=== PATIENT | female | born 1985 | race Caucasian/White ===

== ENCOUNTER → 2019-01-31 | Outpatient (CLI) | payer BC, SELFPAY | PROVIDERS: Family Provider Nurse Practitioner; Visit Provider Otolaryngology | DX: Z01.89 Encounter for other specified special examinations (principal) | CPT/HCPCS: 36415; 85025; 85651; 86038 ==

== ENCOUNTER 2019-04-13 14:03 | Outpatient (CLI) | payer BC, SELFPAY ==
--- NOTE | 2019-04-13 14:10 | CT_ITS ---
WS: [id number] CT ABDOMEN AND PELVIS NONCONTRAST HISTORY: LESION ON LIVER, lymphadenopathy TECHNIQUE: Imaging performed through the abdomen and pelvis. Coronal and sagittal reformats are submi tted. All CT scans at [facility] use at least one of these dose optimization techniques: automated exposure control; mA and/or kV adjustment per patient size (includes targeted exams where d ose is matched to clinical indication); or iterative reconstruction. DLP: 944.97 mGycm COMPARISON: 11/18/2017 Lower thorax: Lung bases are clear. No hiatal hernia. Liver: Diffuse decreased attenuation. No bile duct dilatation. Decreased attenuation lesion in the in ferior RIGHT lobe of the liver measures 2.2 x 1.9 cm. Slight bulging of the contour of the liver. Thi s was present in 11/18/2017 without increase in size. Gallbladder: Unremarkable. Pancreas: Poorly visualized. Spleen: Normal. Adrenal glands: Normal. Right kidney: Normal size with no stones, masses or atrophy. Left kidney: There may be a small cyst in the upper pole. Cannot further characterize without contras t. No obstruction. 2 mm calcification mid kidney. Abdominal aorta and IVC are unremarkable. No free fluid, intraperitoneal air or significant lymphadenopathy. GI tract: Appendix. No GI tract obstruction. Abdominal wall: Intact. Pelvis: Small amount of free fluid in the cul-de-sac may be physiologic. Uterus is top normal size. O therwise ovaries and uterus cannot be evaluated on this unenhanced study. Osseous structures: Unremarkable. CT/CT abdomen pelvis wo con [id number] IMPRESSION: 1. No acute abdominal or pelvic abnormalities are identified. Evaluation of vi sceral organs and soft tissues is limited without IV contrast. 2. No renal obstruction. 3. Low-attenuation lesion in the inferior RIGHT lobe the liver similar to 11/18. Today's examination does not provide additional information without IV c ontrast. Please correlate with prior imaging studies to be sure this mass is be en adequately evaluated and is benign. Three-phase hepatic CT may be necessary for complete evaluation. 4. Normal appendix. 5. Mild uterine enlargement.
[2019-04-13] MEDS: iohexol 300 mg/mL 50 mL Btl PO (15:22)
== END 2019-04-13 14:04 | disposition home or self-care (01) ==
LOC: RADWPI 14:08
PROVIDERS: Family Provider Nurse Practitioner; PCP Nurse Practitioner Family; Referring Provider Nurse Practitioner Family; Visit Provider Nurse Practitioner Family
DX: K76.89 Other specified diseases of liver (principal); R59.1 Generalized enlarged lymph nodes; N85.2 Hypertrophy of uterus
CPT/HCPCS: 74176

== ENCOUNTER 2019-05-01 09:25 | Outpatient (CLI) | payer BC, SELFPAY ==
--- NOTE | 2019-05-01 09:52 | CT_ITS ---
WS: [id number] CT ABDOMEN NON-CONTRAST PLUS CONTRAST TECHNIQUE: Noncontrast CT of the abdomen and contrast-enhanced CT of the abdomen with coronal and sag ittal reformatted images. CLINICAL INFORMATION: LESION OF LIVER COMPARISON: 1 16,018 DLP: 1523.[address] scans at [facility] use at least one of these dose optimization techniques: automat ed exposure control; mA and/or kV adjustment per patient size (includes targeted exams where dose is matched to clinical indication); or iterative reconstruction. FINDINGS: Normal portal vein and splenic vein. Again seen is the peripheral enhancing lesion in the right hepat ic lobe with imaging characteristics consistent with cavernous hemangioma. This lesion measures appro ximately 2.1 x 2.2 CM. A few additional tiny hepatic cysts or cavernous hemangiomas measuring 3 to 4 mm.. No bile duct dilatation. Normal gallbladder. Normal spleen. Pancreas appears normal. Lung bases are well aerated. Normal calib er abdominal aorta. Adrenal glands are normal. Left renal cyst measuring 14 mm. Incidental fat-contai sindi umbilical hernia. Normal lumbar spine. CT/CT abdomen wo/w con [id number] IMPRESSION: 1. 2.1 x 2.2 cm peripheral enhancing lesion in the inferior right hepatic lobe consistent with cavernous hemangioma. 2. Left renal cyst measuring 1.4 CM. 3. No other significant changes from the recent CT.
[2019-05-01] MEDS: iohexol 300 mg/mL 100 mL Btl IV (10:32)
== END 2019-05-01 09:26 | disposition home or self-care (01) ==
LOC: RADWPI 09:27
PROVIDERS: Family Provider Nurse Practitioner; PCP Nurse Practitioner Family; Visit Provider Nurse Practitioner Family
DX: K76.89 Other specified diseases of liver (principal); N28.1 Cyst of kidney, acquired
CPT/HCPCS: 74170; Q9967

== ENCOUNTER → 2019-05-25 09:18 | Outpatient (BNVA) | payer BC, SELFPAY | PROVIDERS: Family Provider Nurse Practitioner; PCP Nurse Practitioner Family; Referring Provider Nurse Practitioner Family; Visit Provider Internal Medicine Rheumatology | DX: M35.00 Sjogren syndrome, unspecified (principal); R76.8 Other specified abnormal immunological findings in serum; M19.90 Unspecified osteoarthritis, unspecified site; Z79.899 Other long term (current) drug therapy; Z11.59 Encounter for screening for other viral diseases; N85.2 Hypertrophy of uterus; D18.03 Hemangioma of intra-abdominal structures; Z11.1 Encounter for screening for respiratory tuberculosis; Z72.89 Other problems related to lifestyle; M79.7 Fibromyalgia | CPT/HCPCS: 36415; 82787; 85651; 86480; 99205 ==

== ENCOUNTER → 2019-05-25 11:30 | Outpatient (BNVA) | payer BC, SELFPAY | PROVIDERS: Family Provider Nurse Practitioner; PCP Nurse Practitioner Family; Referring Provider Nurse Practitioner Family; Visit Provider Internal Medicine Rheumatology | DX: R76.8 Other specified abnormal immunological findings in serum (principal); M19.90 Unspecified osteoarthritis, unspecified site; Z79.899 Other long term (current) drug therapy; Z11.59 Encounter for screening for other viral diseases; M35.00 Sjogren syndrome, unspecified; N85.2 Hypertrophy of uterus; D18.03 Hemangioma of intra-abdominal structures | CPT/HCPCS: 80076; 81001; 82306; 82565; 85025; 86140; 86431; 86704; 86803; 87340 ==

== ENCOUNTER 2019-07-14 22:23 | Emergency (ER) | payer BC, SELFPAY ==
[2019-07-14 23:04] VITALS: BP 144/92; PULSE 86; RESP 16; TEMP 36.8; O2SAT 100; BMI 22.6
[2019-07-14 23:38] LABS: Basophils % 0.2 %; Eosinophils % 0.1 %; Hematocrit 36.3 % (37.0-47.0); Hemoglobin 11.3 g/dL (11.5-15.3); Lymphocytes # 1.1 10^3/uL (0.8-4.8); Lymphocytes % 10.2 %; Mean Corpuscular HGB Conc 31.1 g/dL (30.0-36.0); Mean Corpuscular Volume 86.6 fL (81-99); Mean Platelet Volume 9.9 fL (7.4-10.4); Monocytes # 0.4 10^3/uL (0.2-0.9); Monocytes % 3.3 %; Neutrophils # 9.1 10^3/uL (1.8-7.7); Neutrophils % 85.8 %; Nucleated Red Blood Cells % 0 %; Platelet Count 301 10^3/cmm (130-400); Red Blood Count 4.19 10^6/uL (4.1-5.3); Red Cell Distribution Width 14.2 % (12.1-15.1); White Blood Count 10.6 10^3/uL (4.0-10.0)
--- NOTE | 2019-07-14 23:41 | W.ED.ABDPA2 ---
HPI - Abdominal Pain General: Chief Complaint: Abdominal Pain Stated Complaint: abd pain Time Seen by Provider: 07/14/19 23:17 History of Present Illness: HPI narrative: Donna is a nice 34-year-old female who comes in complaining of feeling bloated and having periumbilical abdominal pain. She states that she felt bloated throughout the day and then getting out of the shower she had sudden onset severe lower abdominal pain and periumbilical abdominal pain. Patient states this feels similar to when she is had ruptured ovarian cysts in the past but the pain is never lasted this long after it happened. She denies any fevers, chills, nausea, vomiting, diarrhea, constipation, dysuria, hematuria or vaginal discharge or bleeding. Associated Symptoms: Denies chills, coffee ground emesis, constipation, GI cramping, diarrhea, dysuria, fever(s), hematochezia, hematuria, hematemesis, melena, nausea, syncope and vomiting Related Data: Date of Last Menstrual Period: 06/20/19 Review of Systems General: Reports: other (negative unless marked) Const: Denies: fever, chills, body aches, fatigue, malaise or diaphoresis Eyes: Denies: change in vision or blurry vision ENMT: Denies: throat pain, painful swallowing, hoarseness, ear pain, ear discharge, Change in hearing or nasal discharge Card: Denies: chest pain, palpitations, irregular heart rhythm, syncope, pre-syncope, shortness of breath on exertion or shortness of breath when lying down Resp: Denies: shortness of breath, productive cough, non-productive cough, wheezing, coughing up blood or chest congestion GI: Reports: abdominal pain; Denies: nausea, vomiting, vomiting blood, coffee grounds in vomit, diarrhea, constipation, cramping, blood in stool or black tarry stool : Denies: flank pain, painful urination, urinary frequency, urinary urgency, decreased urine ouput, urinary incontinence or blood in urine Musc: Denies: neck pain, back pain, extremity pain, extremity swelling, joint pain, joint swelling, joint warmth or joint stiffness Skin/Breast: Denies: rash, skin tenderness or yellow skin Neuro: Denies: headache, numbness in extremities, weakness in extremities, changes in sensation, lack of coordination, difficulty walking, dizziness, vertigo or confusion Endo: Denies: excessive thirst, tired all the time, cold intolerance, excessive sweating, flushing or hot flashes Sekou/Lymph: Denies: easy bruising, easy bleeding, petechiae or enlarged lymph nodes All/Imm: Denies: hives, throat swelling, tongue swelling, facial swelling or acute wheezing PFSH ED PFSH: Medical History Enlarged uterus High risk medication use Immunization counseling Inflammatory arthritis Liver hemangioma Positive NATALIE (antinuclear antibody) Seropositive rheumatoid arthritis Sjogrens syndrome Surgical History History of tubal ligation Family History Other Cancer Diabetes Hypertension Stroke Denies family history of Rheumatoid arthritis Lupus Social History Smoking and tobacco status: never smoked Alcohol intake: never Female Reproductive History: Date of last menstrual period: 06/20/19 Physical Exam Const: COMMON NORMALS: no apparent distress, oriented x3, no limitations, healthy appearing and well nourished EXAM LIMITATIONS: no altered mental status GENERAL APPEARANCE: cooperative, well kempt and well developed ORIENTATION/CONSCIOUSNESS: Yes awake HENMT: COMMON NORMALS: normocephalic, head/scalp atraumatic, hearing grossly normal bilaterally, external ears normal, EAC's normal, external nose normal and moist oral mucous membranes HEAD & SCALP: normal to inspection, normocephalic and atraumatic FACE & SINUS: normal facial exam and face symmetric NOSE: external nose normal and nares normal EXTERNAL EAR: Yes external ears normal EXTERNAL AUDITORY CANAL: EAC's normal MOUTH: oral and palatal mucosa normal and tongue normal Eye: COMMON NORMALS: PERRL, EOMs intact bilaterally, conjunctivae normal and no scleral icterus GENERAL EYE: normal appearance of both eyes and normal light reflex CONJUNCTIVA: Yes conjunctivae normal SCLERA: sclerae normal CORNEA: Yes corneas normal PUPIL: Yes PERRL DIRECT OPHTHALMOSCOPY: Yes normal light reflex Neck/C-Spine: COMMON NORMALS: full ROM, no lymphadenopathy, supple, no meningeal signs and no JVD GENERAL: Yes normal visual inspection and Yes trachea midline CERVICAL SPINE: Yes cervical ROM normal Chest: COMMONS NORMALS: inspection of chest normal and palpation of chest normal Resp: COMMON NORMALS: normal respiratory effort, no retractions, no use of accessory muscles and clear to auscultation bilaterally EFFORT & INSPECTION: Yes able to speak in complete sentences AUSCULTATION: clear to auscultation bilaterally Cardio: COMMON NORMALS: no JVD, regular rate, regular rhythm, S1 normal heart sound, S2 normal heart sound, no gallops, no clicks, no murmurs and no rub JUGULAR VENOUS DISTENTION: no JVD RATE: regular rate RHYTHM: regular rhythm HEART SOUNDS: S1 normal and S2 normal GI: COMMON NORMALS: soft to palpation, no hepatosplenomegaly and no masses PALPATION: Yes soft, No firm, Yes tender Details: LLQ and RLQ, No guarding, No rigid and Yes no hepatosplenomegaly : COMMON NORMALS: Yes no CVA tenderness BLADDER/KIDNEY EXAM: Yes no CVA tenderness Back/Pelvis: COMMON NORMALS: no CVA tenderness, thoracic and lumbar spine normal to inspection, no thoracic nor lumbar tenderness and thoraco-lumbar ROM normal Extremity: COMMON NORMALS: normal to inspection, full ROM, normal capillary refill, no joint enlargement, no clubbing, cyanosis or edema and no calf tenderness Neuro: COMMON NORMALS: oriented x3, CN's II-XII intact bilaterally, moves all extremities, no focal motor deficits and no sensory deficits noted MENINGEAL SIGNS: Yes no meningeal signs Psych: COMMON NORMALS: mental status grossly normal, thought process normal, cooperative, affect normal, speech normal and activity/motor behavior normal APPEARANCE: Yes well kempt SPEECH: Yes normal speech THOUGHT PROCESS: normal thought process Skin: COMMON NORMALS: no rashes or lesions noted, skin turgor normal, no jaundice, no petechiae and no mottling GENERAL SKIN EXAM: no rashes or lesions noted and turgor normal Course Vital Signs: Vital signs: Vital Signs Temperature 98.3 F 07/14/19 23:04 Pulse Rate 70 07/15/19 01:10 Respiratory Rate 16 07/15/19 01:10 Blood Pressure 150/99 07/15/19 01:10 Pulse Oximetry 98 07/15/19 01:10 MDM - Abdominal Pain MDM Narrative: Medical decision making narrative: Donna is a nice 34-year-old female who comes in complaining of abrupt onset abdominal pain. She felt like this was a ruptured ovarian cyst but ultrasound could not confirm this. There was no evidence of torsion, tubo-ovarian abscess or ovarian cyst by ultrasound. As she was continuing to have pain and had a slightly elevated white count I decided to perform a CT of the abdomen pelvis. This is well shows no acute findings. The patient's abdominal exam does not show any sign of peritonitis. I did discuss with the patient at length the possibility of a still developing or occult infection or process causing her pain that could be masked by her immune therapy. She is currently taking 7.5 of prednisone daily. She understands this and she agrees to return in 12 to 24 hours for recheck of her symptoms. She does agree to return sooner if her symptoms worsen or change in any way. We discussed at length in layman's terms those reasons and she understands this and agrees to do so. As she is on a significant amount of prednisone daily I will give her an IV dose of hydrocortisone here and discussed with her stress dose steroid taking. She will take double the amount of prednisone for the next 3 days. At this time I do not want to place her on empiric antibiotics as I do not have a clear source for infection. Differential Diagnosis: Differential diagnosis abdominal pain: Likely abdominal pain, acute appendicitis, calculus of kidney, constipation, diverticulitis, endometriosis, gastroenteritis, pancreatitis and small bowel obstruction Lab Data: Attestation: I reviewed the patient's lab results. Labs: Lab Results 07/14/19 07/14/19 07/14/19 Range/Units 23:30 23:30 23:30 WBC 10.6 H (4.0-10.0) 10^3/ uL RBC 4.19 (4.1-5.3) 10^6/u L Hgb 11.3 L (11.5-15.3) g/dL Hct 36.3 L (37.0-47.0) % MCV 86.6 (81-99) fL MCH 27.0 L (28.0-34.0) pg MCHC 31.1 (30.0-36.0) g/dL RDW 14.2 (12.1-15.1) % Plt Count 301 (130-400) 10^3/c mm MPV 9.9 (7.4-10.4) fL Neut % (Auto) 85.8 % Lymph % (Auto) 10.2 % [place] % (Auto) 3.3 % Eos % (Auto) 0.1 % Baso % (Auto) 0.2 % Neut # (Auto) 9.1 H (1.8-7.7) 10^3/u L Lymph # (Auto) 1.1 (0.8-4.8) 10^3/u L [place] # (Auto) 0.4 (0.2-0.9) 10^3/u L Eos # (Auto) 0.0 (0.0-0.8) 10^3/u L Baso # (Auto) 0.0 (0.0-0.1) 10^3/u L Nucleated RBC % (a uto) 0 % Nucleated RBCs # 0.0 /100WBC Sodium 138 (136-145) mmol/L Potassium 4.1 (3.5-5.1) mmol/L Chloride 100 (98-107) mmol/L Carbon Dioxide 26 (22-29) mmol/L Anion Gap 16.1 (5-19) BUN 8 (6-20) mg/dL Creatinine 0.7 (0.5-0.9) mg/dL GFR Calculation 95.2 (90-130) mL/min Glucose 141 H (65-115) mg/dL Calculated Osmolal ity 284 L (285-295) mOsm/k g Calcium 10.3 (8.5-10.5) mg/dL Total Bilirubin 0.2 (0.15-1.2) mg/dL AST 15 (0-32) U/L ALT 13 (0-33) U/L Alkaline Phosphata se 78 (35-105) IU/L Total Protein 7.7 (6.6-8.7) g/dL Albumin 4.7 (3.5-5.2) g/dL Globulin 3.0 (1.3-4.6) g/dL Lipase 27 (13-60) U/L HCG, Qual (Negative) Urine Color Yellow (Yellow) Urine Appearance Cloudy (CLEAR) Urine pH 7 (5-7) Ur Specific Gravit y 1.010 (1.005-1.030) Urine Protein Neg (Negative) Urine Glucose (UA) Norm (Normal) Urine Ketones Negative (Negative) Urine Blood Trace H (Negative) Urine Nitrate Negative (Negative) Urine Bilirubin Neg (NEGATIVE) Urine Urobilinogen Norm (Negative) mg/dL Ur Leukocyte Rosalia ase Negative (Negative) Urine RBC 0-4 H (0-2) /hpf Urine WBC 0-4 H (0-5) /hpf Ur Squamous Epith Cells 0-4 H (0-5) Urine Bacteria Trace (NONE) Urine Mucus Trace Urine Sperm 1+ 04/01/22 Range/Units 23:30 WBC (4.0-10.0) 10^3/ uL RBC (4.1-5.3) 10^6/u L Hgb (11.5-15.3) g/dL Hct (37.0-47.0) % MCV (81-99) fL MCH (28.0-34.0) pg MCHC (30.0-36.0) g/dL RDW (12.1-15.1) % Plt Count (130-400) 10^3/c mm MPV (7.4-10.4) fL Neut % (Auto) % Lymph % (Auto) % [place] % (Auto) % Eos % (Auto) % Baso % (Auto) % Neut # (Auto) (1.8-7.7) 10^3/u L Lymph # (Auto) (0.8-4.8) 10^3/u L [place] # (Auto) (0.2-0.9) 10^3/u L Eos # (Auto) (0.0-0.8) 10^3/u L Baso # (Auto) (0.0-0.1) 10^3/u L Nucleated RBC % (a uto) % Nucleated RBCs # /100WBC Sodium (136-145) mmol/L Potassium (3.5-5.1) mmol/L Chloride (98-107) mmol/L Carbon Dioxide (22-29) mmol/L Anion Gap (5-19) BUN (6-20) mg/dL Creatinine (0.5-0.9) mg/dL GFR Calculation (90-130) mL/min Glucose (65-115) mg/dL Calculated Osmolal ity (285-295) mOsm/k g Calcium (8.5-10.5) mg/dL Total Bilirubin (0.15-1.2) mg/dL AST (0-32) U/L ALT (0-33) U/L Alkaline Phosphata se (35-105) IU/L Total Protein (6.6-8.7) g/dL Albumin (3.5-5.2) g/dL Globulin (1.3-4.6) g/dL Lipase (13-60) U/L HCG, Qual Negative (Negative) Urine Color (Yellow) Urine Appearance (CLEAR) Urine pH (5-7) Ur Specific Gravit y (1.005-1.030) Urine Protein (Negative) Urine Glucose (UA) (Normal) Urine Ketones (Negative) Urine Blood (Negative) Urine Nitrate (Negative) Urine Bilirubin (NEGATIVE) Urine Urobilinogen (Negative) mg/dL Ur Leukocyte Rosalia ase (Negative) Urine RBC (0-2) /hpf Urine WBC (0-5) /hpf Ur Squamous Epith Cells (0-5) Urine Bacteria (NONE) Urine Mucus Urine Sperm Imaging Data ^: CT Abd/Pel: Radiologist's impression: [place] [address] CT Scan Report Signed Patient: Donna Mendez Unit #: [id number] : 1985 Age/Sex: 34 / F ADM Date: 07/14/19 Loc: ER Room/Bed: Attending Dr: Ordering Provider/Ordering MD: Geno Brooks DO Date of Service: 07/15/19 Procedure(s): CT abdomen pelvis w con* [id number] Accession Number(s): [id number] Report Number: [id number] PROCEDURE INFORMATION: Exam: CT Abdomen And Pelvis With Contrast Exam date and time: 07/15/2019 1:21 AM Age: 34 years old Clinical indication: Abdominal pain; Epigastric; Prior surgery; Surgery date: 6+ months; Surgery type: Btl TECHNIQUE: Imaging protocol: Computed tomography of the abdomen and pelvis with intravenous contrast. Total DLP: 481.12 mGy-cm Radiation optimization: All CT scans at this facility use at least one of these dose optimization techniques: automated exposure control; mA and/or kV adjustment per patient size (includes targeted exams where dose is matched to clinical indication); or iterative reconstruction. Contrast material: OMNI 300; Contrast volume: 95 ml; Contrast route: 20G; COMPARISON: CT abdomen pelvis wo con [id number] 2019-04-13 15:16 FINDINGS: Liver: Small, less than 5 mm, liver hypodensity. Highly likely to be benign and does not require follow-up imaging or biopsy per ACR. Probable hepatic hemangioma along the inferior posterior right hepatic lobe measuring 2.1 cm. Gallbladder and bile ducts: Normal. No calcified stones. No ductal dilation. Pancreas: Normal. No ductal dilation. Spleen: Normal. No splenomegaly. Adrenals: Normal. No mass. Kidneys and ureters: 1.3 cm left renal cyst. Stomach and bowel: Unremarkable. No obstruction. No mucosal thickening. Appendix: No evidence of appendicitis. Intraperitoneal space: Clip in the right pelvis. Vasculature: Numerous phleboliths in the pelvis. Lymph nodes: Unremarkable. No enlarged lymph nodes. Bladder: Unremarkable as visualized. Reproductive: Unremarkable as visualized. Bones/joints: Unremarkable. No acute fracture. Soft tissues: Small fat protruding umbilical hernia. CT/CT abdomen pelvis w con* [id number] IMPRESSION: No acute findings. Radiation Dose CTDIVOL = (mGy): DLP = 481.12 (mGy-cm) Dictated By: Caleb Clark MD Signed By: Caleb Clark MD Signed Date/Time: 07/15/19209 DD/ 7 US: My impression: Ultrasound pelvis, technologist interpretation -no acute findings. No ovarian torsion's. No ovarian cyst. No free fluid. Discharge Plan Discharge Patient Disposition: Home, Self-Care Clinical Impression: Abdominal pain Qualifiers: Abdominal location: generalized Qualified Code(s): R10.84 - Generalized abdominal pain Condition: Stable Prescriptions: New Zofran 4 mg tablet 4 mg PO Q6H PRN (Reason: nausea and vomiting) Qty: 20 RF: 0 No Action acyclovir 400 mg tablet 400 mg PO BID RF: 0 pantoprazole 40 mg tablet,delayed release (DR/EC) 40 mg PO DAILY Qty: 90 RF: 3 prednisone 2.5 mg tablet 7.5 mg PO DAILY Qty: 90 RF: 2 sulfasalazine 500 mg tablet 1 gm PO BID RF: 0 Discharge Orders: Discharge Order (Routine); Ordered 07/15/19 Ordered By: Geno Brooks Referrals: Matilde Conde, C[employer] BLOWER OPERATOR-C [Family Provider] - 1-3 days Rosalind Graves FNP [Primary Care Provider] - Discharge Diet: Advance as tolerated and Clear Liquid Discharge Activity: Increase activity as tolerated Patient Instructions: Abdominal Pain (ED) Activity Restrictions/Additional Instructions: Please return to the ER immediately for any of the signs or symptoms listed on your discharge instruction sheets, worsening/changing of your symptoms, you are not getting better as quickly as expected, or for ANY other cause or concerns. Double your dose of prednisone for the next 3 days. Then resume your normal dosing. Return to the ER in 12 to 24 hours for recheck as a serious even life-threatening cause for your abdominal pain has not been excluded. Return sooner for increased pain, new onset of fever, vomiting, diarrhea, or for any other cause for concern. Stand Alone Forms: Work/School Release Coding Level of Care Code ED Cotton Agent for Kaelyn Fwbhaskar Exam Comprehensive
[2019-07-14 23:51] LABS: Bilirubin Urine Neg (NEGATIVE); Blood Urine Trace (Negative); Glucose Urine UA Norm (Normal); Ketones Urine Negative (Negative); Leukocyte Esterase Urine Negative (Negative); Nitrate Urine Negative (Negative); Protein Urine Neg (Negative); Urine Appearance Cloudy (CLEAR); Urine Color Yellow (Yellow); Urobilinogen Urine Norm (Negative); pH Urine 7 (5-7)
[2019-07-14 23:52] LABS: Bacteria Urine TRACE; Mucus Urine TRACE; RBC Urine 0-4 /hpf (0-2); Sperm Urine 1+; Squamous Epithelial Cell Urine 0-4 (0-5); WBC Urine 0-4 /hpf (0-5)
[2019-07-14 23:53] LABS: HCG, Serum Qual Negative (Negative)
[2019-07-14 23:55] LABS: Alanine Aminotransferase 13 U/L (0-33); Albumin Level 4.7 g/dL (3.5-5.2); Alkaline Phosphatase 78 IU/L (35-105); Anion Gap 16.1 (5-19); Aspartate Amino Transferase 15 U/L (0-32); Blood Urea Nitrogen 8 mg/dL (6-20); Calcium 10.3 mg/dL (8.5-10.5); Carbon Dioxide 26 mmol/L (22-29); Chloride 100 mmol/L (98-107); Glomerular Filtration Rate 95.2 mL/min (90-130); Glucose 141 mg/dL (65-115); Lipase 27 U/L (13-60); Osmolality Calculated 284 mOsm/kg (285-295); Potassium 4.1 mmol/L (3.5-5.1); Sodium 138 mmol/L (136-145); Total Bilirubin 0.2 mg/dL (0.15-1.2); Total Protein 7.7 g/dL (6.6-8.7)
[2019-07-15 00:13] VITALS: RESP 14; O2SAT 99
[2019-07-15] MEDS: ondansetron 2 mg/ML SDV 2 mL 4 MG IVP (00:13)
[2019-07-15] MEDS: morphine 4 mg/mL SDV 1 mL IVP ×2 (00:13→02:53)
[2019-07-15] MEDS: sodium chloride 0.9% 1,000 ML 999 ML IV (00:14)
--- NOTE | 2019-07-15 00:21 | PC.NURSE ---
Patient states that she has been feeling nauseated for the last two days and tonight at 1999 she started having abdominal pain. Patient states she vomited twice today. Patient states that she has been having pain with sex and bleeding, the last time two days ago. Patient states she has a tubal ligation.
[2019-07-15 00:22] VITALS: BP 150/100; PULSE 75; RESP 16; O2SAT 98
--- NOTE | 2019-07-15 01:02 | CTR_ITS ---
PROCEDURE INFORMATION: Exam: CT Abdomen And Pelvis With Contrast Exam date and time: 07/15/2019 1:21 AM Age: 34 years old Clinical indication: Abdominal pain; Epigastric; Prior surgery; Surgery date: 6+ months; Surgery type: Btl TECHNIQUE: Imaging protocol: Computed tomography of the abdomen and pelvis with intravenous contrast. Total DLP: 481.12 mGy-cm Radiation optimization: All CT scans at this facility use at least one of these dose optimization techniques: automated exposure control; mA and/or kV adjustment per patient size (includes targeted exams where dose is matched to clinical indication); or iterative reconstruction. Contrast material: OMNI 300; Contrast volume: 95 ml; Contrast route: 20G; COMPARISON: CT abdomen pelvis wo con [id number] 2019-04-13 15:16 FINDINGS: Liver: Small, less than 5 mm, liver hypodensity. Highly likely to be benign and does not require follow-up imaging or biopsy per ACR. Probable hepatic hemangioma along the inferior posterior right hepatic lobe measuring 2.1 cm. Gallbladder and bile ducts: Normal. No calcified stones. No ductal dilation. Pancreas: Normal. No ductal dilation. Spleen: Normal. No splenomegaly. Adrenals: Normal. No mass. Kidneys and ureters: 1.3 cm left renal cyst. Stomach and bowel: Unremarkable. No obstruction. No mucosal thickening. Appendix: No evidence of appendicitis. Intraperitoneal space: Clip in the right pelvis. Vasculature: Numerous phleboliths in the pelvis. Lymph nodes: Unremarkable. No enlarged lymph nodes. Bladder: Unremarkable as visualized. Reproductive: Unremarkable as visualized. Bones/joints: Unremarkable. No acute fracture. Soft tissues: Small fat protruding umbilical hernia. CT/CT abdomen pelvis w con* [id number] IMPRESSION: No acute findings. Radiation Dose CTDIVOL = (mGy): DLP = 481.12 (mGy-cm)
[2019-07-15 01:10] VITALS: BP 150/99; PULSE 70; RESP 16; O2SAT 98
--- NOTE | 2019-07-15 01:11 | PC.NURSE ---
during pt rounding, pt states she is still having pain 6/10, with no nausea
[2019-07-15] MEDS: iohexol 300 mg/mL 100 mL Btl IV (01:54)
[2019-07-15 02:53] VITALS: RESP 14; O2SAT 96
[2019-07-15] MEDS: hydrocortisone 100 mg/2 mL SDV IVP (02:53)
[2019-07-15 03:10] VITALS: BP 133/85; PULSE 70; RESP 16; O2SAT 99
--- NOTE | 2019-07-15 23:41 | USR_ITS ---
PROCEDURE INFORMATION: Exam: US Pelvis Complete, Transabdominal Exam date and time: 07/15/2019 12:26 AM Age: 34 years old Clinical indication: Abdominal pain; Lower abdomen TECHNIQUE: Imaging protocol: Real-time transabdominal pelvic ultrasound with image documentation. Complete exam. COMPARISON: US pelvic with transvaginal 2017-08-24 09:19 FINDINGS: Uterus/cervix: 8.9 x 4.7 x 5 cm uterus without masses. Unremarkable endometrium. Right adnexa: 2.9 x 2.1 x 2.7 cm right ovary with normal follicular architecture and blood flow. Left adnexa: 3.1 x 2 x 1.9 cm left ovary with normal follicular architecture and blood flow. Free fluid: None. Bladder: Normal. US/US pelvic complete* [id number] IMPRESSION: Normal.
== END 2019-07-15 03:11 | disposition home or self-care (01) ==
PROVIDERS: Emergency Provider Emergency Medicine; Family Provider Nurse Practitioner; PCP Nurse Practitioner Family
DX: R10.84 Generalized abdominal pain (principal); R76.8 Other specified abnormal immunological findings in serum; M35.00 Sjogren syndrome, unspecified; M05.9 Rheumatoid arthritis with rheumatoid factor, unspecified
CPT/HCPCS: 12345; 74177; 76856; 80053; 81001; 83690; 84703; 85025; 96361; 96374; 96375; 96376; 99283; 99284; A9270; J1720; J2270; J2405; J7030; Q9967

== ENCOUNTER 2019-07-16 19:27 | Emergency (ER) | payer BC, SELFPAY ==
[2019-07-16 19:31] VITALS: BP 152/100; PULSE 87; RESP 18; TEMP 36.7; O2SAT 100; BMI 22.4
--- NOTE | 2019-07-16 19:46 | CTR_ITS ---
PROCEDURE INFORMATION: Exam: CT Abdomen And Pelvis With Contrast Exam date and time: 07/16/2019 9:33 PM Age: 34 years old Clinical indication: Abdominal pain; Localized; Left lower quadrant (llq); Additional info: Pain luq TECHNIQUE: Imaging protocol: Computed tomography of the abdomen and pelvis with intravenous contrast. Sagittal and coronal reformatted images were created and reviewed. Total DLP: 494.21 mGy-cm Radiation optimization: All CT scans at this facility use at least one of these dose optimization techniques: automated exposure control; mA and/or kV adjustment per patient size (includes targeted exams where dose is matched to clinical indication); or iterative reconstruction. Contrast material: OMNIPAQUE 300; Contrast volume: 95 ml; Contrast route: IV; COMPARISON: 1. CT abdomen pelvis w con* [id number] 07/15/2019 1:[address] abdomen pelvis w con* [id number] 11/18/2017 8:26:[address] abdomen pelvis wo con [id number] 04/13/2019 3:16:01 PM FINDINGS: Lungs: Visualized lungs are clear. Pleural space: No pleural effusion. Heart: Visualized portions of the heart are unremarkable. Liver: Hypodense lesion in the liver with imaging characteristics consistent with a hemangioma. This measures 3.0 x 2.5 cm, stable dating back to 11/18/2017 (series 2, image 40). Two hypodense foci in the liver that cannot be further characterized on the current examination. The larger measures 6.4 mm (series 2, images 15 and 28). Findings are stable dating back to 11/18/2017. Gallbladder and bile ducts: The gallbladder is contracted. This may be due to a postprandial state. No pericholecystic fluid. No biliary ductal dilatation. Pancreas: The pancreas is unremarkable. No pancreatic ductal dilatation. Spleen: The spleen is unremarkable. Adrenals: The right and left adrenal glands are unremarkable. Kidneys and ureters: The right kidney is unremarkable. Mildly complex cyst with thin internal septation in the left kidney. This measures 1.6 x 1.2 cm (series 2, image 23), findings are stable compared with on 11/18/2017. Findings suggest a Bosniak type 2 cyst. The right and left ureters are unremarkable. Stomach and bowel: Ingested contents in the stomach. Fluid within the small bowel without evidence of mesenteric lymphadenopathy or bowel wall thickening. Appendix: The appendix is visualized and is unremarkable. No findings to suggest acute appendicitis. Intraperitoneal space: Small amount of free fluid in the pelvis. No free intraperitoneal air. No loculated fluid collections to suggest an abscess. Vasculature: No evidence for aortic aneurysm or aortic dissection. Hepatic veins, portal veins, splenic vein, and SMV are patent. Lymph nodes: No lymphadenopathy. Bladder: The bladder is unremarkable. Reproductive: The uterus is unremarkable. Right ovarian cyst with an enhancing wall, possibly representing a degenerating ovarian cyst. This measures 1.9 x 0.9 cm (series 2, image 63). The left ovary is unremarkable. The patient has had a previous bilateral tubal ligation. There is a ligation clip in the right adnexa, the left ligation clip has migrated superiorly and is located in the left upper quadrant (series 2, image 26). Findings are stable. Bones/joints: No acute fracture. Soft tissues: The extra-abdominal soft tissues are unremarkable. CT/CT abdomen pelvis w con* [id number] IMPRESSION: 1. Fluid within the small bowel without evidence of mesenteric lymphadenopathy or bowel wall thickening. This may reflect viral gastroenteritis in the appropriate clinical situation. 2. The patient has had a previous bilateral tubal ligation. There is a ligation clip in the right adnexa, the left ligation clip has migrated superiorly and is located in the left upper quadrant. Findings are stable dating back to 04/13/2019. 3. Probable degenerating cyst in the right ovary. 4. Two hypodense foci in the liver that cannot be further characterized on the current examination. Findings are stable dating back to 11/18/2017. 5. Stable hepatic hemangioma in the liver dating back to 11/18/2017. 6. Stable Bosniak type 2 left renal cyst compared with 11/18/2017. 7. Small amount of free fluid in the pelvis. 8. Incidental/nonacute findings are listed in the report. Radiation Dose CTDIVOL = (mGy): DLP = 494.21 (mGy-cm)
--- NOTE | 2019-07-16 19:48 | ED_ITS ---
HPI - Abdominal Pain General: Chief Complaint: Abdominal Pain Stated Complaint: told to come her by doctor Time Seen by Provider: 07/16/19 19:36 History of Present Illness: HPI narrative: Patient complains of abdominal pain is continued since her last visit here it hurts up in the left upper quadrant she is peeing and pooping just fine. Denies any fever chills cough or other related problems. Her muscles and joints are feeling better now since she been on prednisone. Blood pressure is up slightly today. MD elicited complaint: abdominal pain Pertinent past history: constipation Onset (ago): day(s) Pain Consistency: constant Location: Periumbilical and LUQ Severity: moderate Quality: dull Exacerbating factors: nothing Relieving factors: nothing Associated Symptoms: Reports bloating; Denies chills and fever(s) Related Data: Date of Last Menstrual Period: 06/20/19 Review of Systems Const: Denies: fever, chills or body aches Eyes: Denies: change in vision or blurry vision ENMT: Denies: throat pain or nasal congestion Card: Denies: chest pain or shortness of breath on exertion Resp: Denies: shortness of breath, productive cough or non-productive cough GI: Reports: abdominal pain and bloating Musc: Denies: extremity pain Skin/Breast: Denies: rash Neuro: Denies: headache Psych: Denies: anxiety or depression [place]/Lymph: Denies: easy bruising PFSH ED PFSH: Social History Smoking and tobacco status: never smoked Alcohol intake: never Female Reproductive History: Date of last menstrual period: 06/20/19 Physical Exam Const: COMMON NORMALS: no apparent distress, average body habitus and oriented x3 HENMT: COMMON NORMALS: normocephalic HEAD & SCALP: normal to inspection and normocephalic FACE & SINUS: normal facial exam Eye: COMMON NORMALS: conjunctivae normal GENERAL EYE: normal appearance of both eyes CONJUNCTIVA: Yes conjunctivae normal Neck/C-Spine: COMMON NORMALS: no JVD Chest: COMMONS NORMALS: inspection of chest normal Resp: COMMON NORMALS: normal respiratory effort and clear to auscultation bilaterally AUSCULTATION: clear to auscultation bilaterally Cardio: COMMON NORMALS: no JVD, regular rate and regular rhythm RATE: regular rate RHYTHM: regular rhythm GI: COMMON NORMALS: normal to inspection, nondistended, normoactive bowel sounds AUSCULTATION: Yes normoactive bowel sounds PALPATION: Yes tender Details: LUQ and other (Periumbilical) Extremity: COMMON NORMALS: normal to inspection and full ROM Neuro: COMMON NORMALS: oriented x3 Course Vital Signs: Vital signs: Vital Signs Temperature 98.1 F 07/16/19 19:31 Pulse Rate 87 07/16/19 19:31 Respiratory Rate 18 07/16/19 19:31 Blood Pressure 152/100 07/16/19 19:31 Pulse Oximetry 100 07/16/19 19:31 Discharge Plan Discharge Prescriptions: No Action acyclovir 400 mg tablet 400 mg PO BID RF: 0 pantoprazole 40 mg tablet,delayed release (DR/EC) 40 mg PO DAILY Qty: 90 RF: 3 prednisone 2.5 mg tablet 7.5 mg PO DAILY Qty: 90 RF: 2 sulfasalazine 500 mg tablet 1 gm PO BID RF: 0 ondansetron HCl [Zofran] 4 mg tablet 4 mg PO Q6H PRN (Reason: nausea and vomiting) Qty: 20 RF: 0 Vitamin D3 1,000 units 1,000 units PO DAILY RF: 0 Coding Level of Care Code ED 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
[2019-07-16 19:58] LABS: Basophils % 0.2 %; Eosinophils % 0.1 %; Hematocrit 35.4 % (37.0-47.0); Lymphocytes # 1.4 10^3/uL (0.8-4.8); Lymphocytes % 13.1 %; Mean Corpuscular HGB Conc 31.1 g/dL (30.0-36.0); Mean Corpuscular Volume 86.8 fL (81-99); Monocytes # 0.4 10^3/uL (0.2-0.9); Monocytes % 4.2 %; Neutrophils # 8.4 10^3/uL (1.8-7.7); Neutrophils % 82.1 %; Nucleated Red Blood Cells % 0 %; Platelet Count 299 10^3/cmm (130-400); Red Blood Count 4.08 10^6/uL (4.1-5.3); Red Cell Distribution Width 14.2 % (12.1-15.1); White Blood Count 10.3 10^3/uL (4.0-10.0)
[2019-07-16 20:00] LABS: Add Urine Microscopic? NO
[2019-07-16 20:09] LABS: Bilirubin Urine Neg (NEGATIVE); Blood Urine Neg (Negative); Glucose Urine UA Norm (Normal); HCG Qualitative Urine. Negative (Negative); Ketones Urine Negative (Negative); Leukocyte Esterase Urine Negative (Negative); Nitrate Urine Negative (Negative); Protein Urine Neg (Negative); Urine Appearance Clear (CLEAR); Urine Color Yellow (Yellow); Urobilinogen Urine Norm (Negative); pH Urine 6.5 (5-7)
[2019-07-16 20:10] LABS: Alanine Aminotransferase 6 U/L (0-33); Albumin Level 4.8 g/dL (3.5-5.2); Alkaline Phosphatase 77 IU/L (35-105); Anion Gap 14.5 (5-19); Aspartate Amino Transferase 12 U/L (0-32); Blood Urea Nitrogen 9 mg/dL (6-20); C Reactive Protein 0.3 mg/L (0.0-4.9); Calcium 10.3 mg/dL (8.5-10.5); Carbon Dioxide 27 mmol/L (22-29); Chloride 100 mmol/L (98-107); Globulin 2.8 g/dL (1.3-4.6); Glomerular Filtration Rate 95.2 mL/min (90-130); Glucose 123 mg/dL (65-115); Osmolality Calculated 283 mOsm/kg (285-295); Potassium 3.5 mmol/L (3.5-5.1); Sodium 138 mmol/L (136-145); Total Bilirubin 0.2 mg/dL (0.15-1.2); Total Protein 7.6 g/dL (6.6-8.7)
[2019-07-16] MEDS: iohexol 300 mg/mL 100 mL Btl IV (21:36)
[2019-07-16 22:47] VITALS: BP 130/83; PULSE 64; RESP 18; TEMP 36.4; O2SAT 97
== END 2019-07-16 22:49 | disposition home or self-care (01) ==
PROVIDERS: Emergency Provider Nurse Practitioner Family; Family Provider Nurse Practitioner; PCP Nurse Practitioner Family
DX: R10.12 Left upper quadrant pain (principal); D18.03 Hemangioma of intra-abdominal structures; N85.2 Hypertrophy of uterus; M35.00 Sjogren syndrome, unspecified; R76.8 Other specified abnormal immunological findings in serum; Z79.899 Other long term (current) drug therapy
CPT/HCPCS: 12345; 74177; 80053; 81003; 81025; 85025; 86140; 96374; 99282; 99283; Q9967

== ENCOUNTER → 2020-01-15 11:25 | Outpatient (BNVA) | payer BC, SELFPAY | PROVIDERS: Family Provider Nurse Practitioner; PCP Nurse Practitioner Family; Visit Provider Nurse Practitioner Family | DX: Z11.59 Encounter for screening for other viral diseases (principal); Z20.828 Contact with and (suspected) exposure to other viral communicable diseases; J06.9 Acute upper respiratory infection, unspecified | CPT/HCPCS: 87635 ==

== ENCOUNTER 2021-04-18 07:39 | Outpatient (CLI) | payer SELFPAY ==
[2021-04-18 08:00] VITALS: BP 112/77; PULSE 72; RESP 18; TEMP 36.6; O2SAT 96; BMI 24.0
[2021-04-18 08:46] VITALS: BP 114/83; PULSE 68; RESP 18; TEMP 37.1; O2SAT 98
[2021-04-18 09:43] VITALS: BP 111/83; PULSE 82; RESP 16; TEMP 36.3; O2SAT 97
== END 2021-04-18 07:40 | disposition home or self-care (01) ==
LOC: OPS 07:41
PROVIDERS: PCP Nurse Practitioner Family; Visit Provider Family Medicine
DX: U07.1 COVID-19 (principal); M35.00 Sjogren syndrome, unspecified; J45.909 Unspecified asthma, uncomplicated
CPT/HCPCS: 96365

== ENCOUNTER 2021-06-14 21:27 | Emergency (ER) | payer SELFPAY ==
[2021-06-14 21:32] VITALS: BP 139/86; PULSE 99; RESP 18; TEMP 36.6; O2SAT 97; BMI 24.5
[2021-06-14 22:05] LABS: Basophils % 0.2 %; Eosinophils % 0.2 %; Hematocrit 36.9 % (37.0-47.0); Hemoglobin 11.8 g/dL (11.5-15.3); Lymphocytes # 1.1 10^3/uL (0.8-4.8); Lymphocytes % 11.6 %; Mean Corpuscular Hemoglobin 26.7 pg (28.0-34.0); Mean Corpuscular Volume 83.5 fl (81-99); Mean Platelet Volume 9.8 fL (7.4-10.4); Monocytes # 0.6 10^3/uL (0.2-0.9); Monocytes % 6.8 %; Neutrophils # 7.62 10^3/uL (1.8-7.7); Nucleated Red Blood Cells % 0 %; Platelet Count 292 10^3/cmm (130-400); Red Blood Count 4.42 10^6/uL (4.1-5.3); Red Cell Distribution Width 13.5 % (12.1-15.1); White Blood Count 9.4 10^3/uL (4.0-10.0)
[2021-06-14] MEDS: LORazepam 2 mg/mL INJ 1 mL 1 MG IVP (22:08)
[2021-06-14] MEDS: sodium chloride 0.9% 1,000 ML 999 ML IV (22:10)
[2021-06-14] MEDS: ondansetron 2 mg/ML SDV 2 mL 4 MG IVP (22:10)
[2021-06-14 22:29] LABS: Alanine Aminotransferase 10 U/L (0-33); Albumin Level 4.8 g/dL (3.5-5.2); Alkaline Phosphatase 95 IU/L (35-105); Anion Gap 14.4 (5-19); Aspartate Amino Transferase 11 U/L (0-32); Blood Urea Nitrogen 5 mg/dL (6-20); Calcium 9.1 mg/dL (8.5-10.5); Carbon Dioxide 26 mmol/L (22-29); Chloride 100 mmol/L (98-107); Glomerular Filtration Rate 112.5 mL/min (90-130); Glucose 140 mg/dL (65-115); Osmolality Calculated 284 mOsm/kg (285-295); Potassium 3.4 mmol/L (3.5-5.1); Sodium 137 mmol/L (136-145); Total Bilirubin 0.3 mg/dL (0.15-1.2); Total Protein 7.8 g/dL (6.6-8.7)
[2021-06-14 23:53] VITALS: PULSE 82; RESP 14; O2SAT 98
--- NOTE | 2021-06-15 00:20 | W.ED.GENADLT ---
HPI - General Adult General: Chief complaint: General Medical Stated complaint: reaction to medication Time Seen by Provider: 06/14/21 21:41 History of Present Illness: 36-year-old female who started Prozac around a week ago. She notes several hours after she took it, she began to get paresthesias in her arms and legs at times, she has been nauseated, and threw up once this evening which prompted her to come to the ER. She has been a bit jittery, and generally not felt well. She denies any fever, significant diarrhea, seizure, significant mental status change, or other problems. No sick contacts. Onset (ago): day(s) Radiation: non-radiation Severity: moderate Relieving factors: none Exacerbating factors: none Associated symptoms: Reports headache(s), nausea, vomiting and weakness (Generalized); Deny chest pain, confusion, cough, dyspnea, fevers/chills or short of breath Review of Systems Const: Denies: fever(s) or chills Eyes: Denies: change in vision ENMT: Denies: throat pain Card: Denies: chest pain Resp: Denies: dyspnea, productive cough or non-productive cough GI: Reports: nausea and vomiting Neuro: Reports: headache(s); Denies: confusion PFSH ED PFSH: Medical History Enlarged uterus High risk medication use Immunization counseling Inflammatory arthritis Liver hemangioma Positive NATALIE (antinuclear antibody) Seropositive rheumatoid arthritis Sjogrens syndrome Surgical History History of tubal ligation Family History Other Cancer Diabetes Hypertension Stroke Denies family history of Rheumatoid arthritis Lupus Social History Smoking and tobacco status: never smoked Alcohol intake: never Female Reproductive History: Date of last menstrual period: 06/20/19 Physical Exam Const: COMMON NORMALS: no acute distress GENERAL APPEARANCE: cooperative; not ill appearing and not frail appearing HENMT: COMMON NORMALS: normocephalic, atraumatic and Normal external nose present HEAD & SCALP: normocephalic and atraumatic FACE & SINUS: normal facial exam NOSE: Normal external nose present Eye: COMMON NORMALS: Equal, round and reactive pupils present and EOMs intact bilaterally PUPIL: Yes Equal, round and reactive pupils present Chest: COMMONS NORMALS: normal inspection of the chest Resp: COMMON NORMALS: No use of accessory muscles, clear to auscultation bilaterally and percussion normal AUSCULTATION: clear to auscultation bilaterally PERCUSSION: percussion normal Cardio: COMMON NORMALS: regular rate and regular rhythm RATE: regular rate RHYTHM: regular rhythm GI: COMMON NORMALS: Normal to inspection, nondistended, normoactive bowel sounds present, Soft to palpation and non-tender PALPATION: Yes Soft to palpation Extremity: COMMON NORMALS: no pedal edema Neuro: TJ COMA SCALE: document GCS findings [place] coma scale eye opening: Spontaneous [place] coma scale verbal response: Orientated [place] coma scale motor response: Obey commands [place] coma scale total score: 15 Skin: RASHES: no rashes Course Vital Signs: Vital signs: Vital Signs Temperature 98 F 06/14/21 21:32 Pulse Rate 82 06/14/21 23:53 Respiratory Rate 14 06/14/21 23:53 Blood Pressure 139/86 06/14/21 21:32 Pulse Oximetry 98 06/14/21 23:53 MDM - General Adult Medical Decision Making Labs are benign. No other reason for her symptoms besides the medication she started. She is given Ativan here, which made her pretty sleepy, but improved the paresthesias she was having also improved her nausea. She will be allowed discharge to discontinue her fluoxetine, and follow-up as an outpatient. She knows to return for any return of or continued symptoms. Lab Data : 06/14/21 22:00 06/14/21 22:00 Laboratory Results WBC 9.4 10^3/uL (4.0-10.0) 06/14/21 22:00 RBC 4.42 10^6/uL (4.1-5.3) 06/14/21 22:00 Hgb 11.8 g/dL (11.5-15.3) 06/14/21 22:00 Hct 36.9 % (37.0-47.0) L 06/14/21 22:00 MCV 83.5 fl (81-99) 06/14/21 22:00 MCH 26.7 pg (28.0-34.0) L 06/14/21 22:00 MCHC 32.0 g/dL (30.0-36.0) 06/14/21 22:00 RDW 13.5 % (12.1-15.1) 06/14/21 22:00 Plt Count 292 10^3/cmm (130-400) 06/14/21 22:00 MPV 9.8 fL (7.4-10.4) 06/14/21 22:00 Neut % (Auto) 81.0 % 06/14/21 22:00 Lymph % (Auto) 11.6 % 06/14/21 22:00 [place] % (Auto) 6.8 % 06/14/21:00 Eos % (Auto) 0.2 % 06/14/21:00 Baso % (Auto) 0.2 % 06/14/21 22:00 Neut # (Auto) 7.62 10^3/uL (1.8-7.7) 06/14/21 22:00 Lymph # (Auto) 1.1 10^3/uL (0.8-4.8) 06/14/21 22:00 [place] # (Auto) 0.6 10^3/uL (0.2-0.9) 06/14/21 22:00 Eos # (Auto) 0.0 10^3/uL (0.0-0.8) 06/14/21 22:00 Baso # (Auto) 0.0 10^3/uL (0.0-0.1) 06/14/21 22:00 Nucleated RBC % (auto) 0 % 06/14/21:00 Nucleated RBCs # 0.0 /100WBC 06/14/21 22:00 Sodium 137 mmol/L (136-145) 06/14/21 22:00 Potassium 3.4 mmol/L (3.5-5.1) L 06/14/21 22:00 Chloride 100 mmol/L (98-107) 06/14/21 22:00 Carbon Dioxide 26 mmol/L (22-29) 06/14/21 22:00 Anion Gap 14.4 (5-19) 06/14/21 22:00 BUN 5 mg/dL (6-20) L 06/14/21 22:00 Creatinine 0.6 mg/dL (0.5-0.9) 06/14/21 22:00 GFR Calculation 112.5 mL/min (90-130) 06/14/21 22:00 Glucose 140 mg/dL (65-115) H 06/14/21 22:00 Calculated Osmolality 284 mOsm/kg (285-295) L 06/14/21 22:00 Calcium 9.1 mg/dL (8.5-10.5) 06/14/21 22:00 Total Bilirubin 0.3 mg/dL (0.15-1.2) 06/14/21 22:00 AST 11 U/L (0-32) 06/14/21 22:00 ALT 10 U/L (0-33) 06/14/21 22:00 Alkaline Phosphatase 95 IU/L (35-105) 06/14/21 22:00 Total Protein 7.8 g/dL (6.6-8.7) 06/14/21 22:00 Albumin 4.8 g/dL (3.5-5.2) 06/14/21 22:00 Globulin 3.0 g/dL (1.3-4.6) 06/14/21 22:00 Discharge Plan Discharge Patient Disposition: Home Clinical Impression: Medication intolerance Condition: Stable Prescriptions: Continued ondansetron HCl [Zofran] 4 mg tablet 4 mg PO Q6H PRN (Reason: nausea and vomiting) Qty: 20 0RF No Action acyclovir 400 mg tablet 400 mg PO BID 0RF dexamethasone 6 mg tablet 6 mg PO DAILY Qty: 5 0RF amoxicillin-pot clavulanate [Augmentin] 875-125 mg tablet 1 tab PO BID Qty: 20 0RF prednisone 20 mg tablet 20 mg PO BID Qty: 6 0RF Vitamin D3 1,000 units 1,000 units PO DAILY 0RF Discharge Orders: Discharge ED (Routine); Ordered 06/14/21 Ordered By: Carlos Valenzuela Referrals: Columba Huber FNP-C [Primary Care Provider] - 4-7 days Activity Restrictions/Additional Instructions: Stop the fluoxetine. Take the nausea medication every 4 hours while awake scheduled for the next 48 hours, then as needed. Drink plenty of fluids. Return for any worsening symptoms. 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
== END 2021-06-15 00:08 | disposition home or self-care (01) ==
PROVIDERS: Emergency Provider Emergency Medicine; PCP Nurse Practitioner Family
DX: T88.7XXA Unspecified adverse effect of drug or medicament, initial encounter (principal); T43.225A Adverse effect of selective serotonin reuptake inhibitors, initial encounter
CPT/HCPCS: 80053; 85025; 96361; 96374; 96375; 99283; J2060; J2405; J7030

== ENCOUNTER 2021-07-27 19:29 | Emergency (ER) | payer SELFPAY ==
[2021-07-27 19:59] VITALS: BP 131/91; PULSE 87; RESP 16; TEMP 36.6; O2SAT 100; BMI 25.3
--- NOTE | 2021-07-27 20:13 | XRR_ITS ---
PROCEDURE INFORMATION: Exam: XR Chest Exam date and time: 07/27/2021 10:35 PM Age: 36 years old Clinical indication: Pain; On breathing; Additional info: Pleuritic cp TECHNIQUE: Imaging protocol: XR of the chest. Views: 1 view. COMPARISON: CT abdomen pelvis w con* [id number] 07/16/2019 9:39 PM FINDINGS: Lungs: The lung bases are suboptimally assessed due to technique however the upper lungs are clear of focal consolidation. Slight bilateral basilar haziness may be related to overlying breast tissue however developing pneumonia cannot be excluded. Follow-up including lateral view may be helpful. Pleural spaces: Unremarkable. No pleural effusion. No pneumothorax. Heart/Mediastinum: Cardiac silhouette appears normal in size. No obvious vascular congestion. Bones/joints: No acute osseous findings. Other findings: Single view was submitted. XR/XR chest 1V portable [id number] IMPRESSION: Mild bilateral basilar haziness. See discussion above..
--- NOTE | 2021-07-27 21:00 | ECG_ITS ---
[facility] Test Date: 2021-07-27 Pat Name: Donna Mendez Department: Room: Gender: Female Ekg Tech: : 1985 Requested By: Mauricio Llanes Order Number: [id number] Herrera MD: Jhonatan Lebron M.D. Measurements Intervals [place] Rate: 80 P: 50 [place]: 130 QRS: 76 QRSD: 80 T: 6 QT: 326 QTc: 378 Interpretive Statements SINUS RHYTHM NONSPECIFIC T-WAVE ABNORMALITY No previous ECG available for comparison Electronically Signed On 07-28-2021 22:14:51 CDT by Jhonatan Lebron M.D. [id number] f
[2021-07-27 23:50] LABS: Basophils % 0.5 %; Eosinophils # 0.2 10^3/uL (0.0-0.8); Hematocrit 37.7 % (37.0-47.0); Lymphocytes # 1.5 10^3/uL (0.8-4.8); Lymphocytes % 18.9 %; Mean Corpuscular HGB Conc 31.8 g/dL (30.0-36.0); Mean Corpuscular Hemoglobin 27.1 pg (28.0-34.0); Mean Corpuscular Volume 85.3 fl (81-99); Mean Platelet Volume 10.3 fL (7.4-10.4); Monocytes # 0.5 10^3/uL (0.2-0.9); Monocytes % 5.6 %; Neutrophils # 5.85 10^3/uL (1.8-7.7); Neutrophils % 72.8 %; Nucleated Red Blood Cells % 0 %; Platelet Count 325 10^3/cmm (130-400); Red Blood Count 4.42 10^6/uL (4.1-5.3); Red Cell Distribution Width 13.9 % (12.1-15.1)
[2021-07-28 00:13] LABS: Alanine Aminotransferase 11 U/L (0-33); Albumin Level 4.5 g/dL (3.5-5.2); Alkaline Phosphatase 87 IU/L (35-105); Anion Gap 12.9 (5-19); Aspartate Amino Transferase 13 U/L (0-32); Blood Urea Nitrogen 8 mg/dL (6-20); Calcium 9.2 mg/dL (8.5-10.5); Carbon Dioxide 26 mmol/L (22-29); Chloride 103 mmol/L (98-107); Globulin 2.8 g/dL (1.3-4.6); Glomerular Filtration Rate 112.5 mL/min (90-130); Glucose 93 mg/dL (65-115); Osmolality Calculated 284 mOsm/kg (285-295); Potassium 3.9 mmol/L (3.5-5.1); Sodium 138 mmol/L (136-145); Total Bilirubin 0.2 mg/dL (0.15-1.2); Total Protein 7.3 g/dL (6.6-8.7)
[2021-07-28 00:15] LABS: D Dimer 1.77 ug/mIFEU (0-0.59)
--- NOTE | 2021-07-28 00:17 | CTR_ITS ---
PROCEDURE INFORMATION: Exam: CTA Chest With Contrast Exam date and time: 07/28/2021 12:48 AM Age: 36 years old Clinical indication: Pain; Left-sided; Patient HX: C/O intermittent L sided cp x 3 days; Additional info: Chest pain TECHNIQUE: Imaging protocol: Computed tomographic angiography of the chest with contrast. 3D rendering (Not supervised by radiologist): MIP and/or 3D reconstructed images were created by the technologist. Radiation optimization: All CT scans at this facility use at least one of these dose optimization techniques: automated exposure control; mA and/or kV adjustment per patient size (includes targeted exams where dose is matched to clinical indication); or iterative reconstruction. Contrast material: OMNI 350; Contrast volume: 58 ml; Contrast route: INTRAVENOUS (IV); COMPARISON: CR (CHEST, ) 07/27/2021 10:35 PM RADIATION DOSE METRICS: Total DLP (mGy-cm): 376.81 FINDINGS: Pulmonary arteries: Normal. No pulmonary emboli. Aorta: Unremarkable. No aortic aneurysm. No aortic dissection. Lungs: Unremarkable. No consolidation. No masses. Pleural spaces: Unremarkable. No pneumothorax. No pleural effusion. Heart: Unremarkable. No cardiomegaly. No pericardial effusion. Lymph nodes: Unremarkable. No enlarged lymph nodes. Bones/joints: Unremarkable. No acute fracture. Soft tissues: Unremarkable. CT/CT angio chest PE protcl [id number] IMPRESSION: No acute findings.
[2021-07-28 00:30] VITALS: BP 125/91; PULSE 73; RESP 25; O2SAT 99
[2021-07-28 00:35] LABS: Troponin T (5th) Once 6 ng/L (0-10)
[2021-07-28] MEDS: iohexol 350 mg/mL 100 mL Btl IV (00:54)
--- NOTE | 2021-07-28 01:32 | W.ED.CHESTPA ---
HPI - Chest Pain General: Chief Complaint: Chest Pain Stated Complaint: Chest Pain Time Seen by Provider: 07/27/21 23:02 Source: patient History of Present Illness: 36-year-old female who says she has been sick with respiratory symptoms for about a month. She began to get over these a few days ago. She, however, developed pleuritic left-sided chest pain, worse with breathing. It seems to have been worsening for the past day or so. Pain is sharp. Radiates into her shoulder. She notes pain increases with arm movement as well. MD complaint: chest pain Pertinent past history: other Onset (ago): day(s) Timing of current episode: constant Prior episodes: No Onset: during rest Pain location: left chest Pain radiation: left shoulder Severity: moderate Quality: sharp Relieving factors: nothing Exacerbating factors: inspiration and movement Context: other Associated symptoms: Reports nausea; Deny abdominal pain, diaphoresis, dyspnea, fever(s), leg edema, palpitations or vomiting Review of Systems Const: Denies: fever(s) or diaphoresis Eyes: Denies: change in vision ENMT: Denies: throat pain Card: Reports: chest pain; Denies: palpitations Resp: Reports: non-productive cough; Denies: dyspnea or productive cough GI: Reports: nausea; Denies: abdominal pain or vomiting Musc: Denies: neck pain or back pain Skin/Breast: Denies: rash PFSH ED PFSH: Medical History Enlarged uterus High risk medication use Immunization counseling Inflammatory arthritis Liver hemangioma Positive NATALIE (antinuclear antibody) Seropositive rheumatoid arthritis Sjogrens syndrome Surgical History History of tubal ligation Family History Other Cancer Diabetes Hypertension Stroke Denies family history of Rheumatoid arthritis Lupus Social History Smoking and tobacco status: never smoked Alcohol intake: never Female Reproductive History: Date of last menstrual period: 06/20/19 Physical Exam Const: GENERAL APPEARANCE: cooperative; not frail appearing HENMT: COMMON NORMALS: normocephalic and atraumatic HEAD & SCALP: normocephalic and atraumatic Eye: COMMON NORMALS: Equal, round and reactive pupils present and EOMs intact bilaterally GENERAL EYE: appearance normal, both eyes and all related structures PUPIL: Yes Equal, round and reactive pupils present Chest: CHEST: Yes tenderness (LEFT ANT AND POST CHEST) Resp: COMMON NORMALS: normal respiratory effort, No use of accessory muscles and clear to auscultation bilaterally AUSCULTATION: clear to auscultation bilaterally Cardio: COMMON NORMALS: regular rate and regular rhythm RATE: regular rate RHYTHM: regular rhythm GI: COMMON NORMALS: Normal to inspection, nondistended, normoactive bowel sounds present, Soft to palpation and non-tender PALPATION: Yes Soft to palpation Extremity: COMMON NORMALS: no pedal edema Neuro: JAYNE COMA SCALE: document GCS findings [place] coma scale eye opening: Spontaneous [place] coma scale verbal response: Orientated [place] coma scale motor response: Obey commands [place] coma scale total score: 15 Psych: COMMON NORMALS: mental status grossly normal Course Vital Signs: Vital signs: Vital Signs Temperature 97.9 F 07/27/21 19:59 Pulse Rate 73 07/28/21 00:30 Respiratory Rate 25 H 07/28/21 00:30 Blood Pressure 125/91 07/28/21 01:49 Pulse Oximetry 99 07/28/21 00:30 MDM - Chest Pain Medical Decision Making Pleuritic reproducible chest pain. Chest x-ray showed potentially some haziness bilaterally in the basilar region. CBC is normal. BMP is normal. Troponin is 6. EKG shows a normal sinus rhythm with no acute ST changes. However, D-dimer is 1.77. CTA of the chest is negative. She will be allowed home with treatment for costochondritis. Lab Data : 07/27/21 23:45 07/27/21 23:45 Radiology Impressions Chest X-Ray 07/27/21 20:13 IMPRESSION: Mild bilateral basilar haziness. See discussion above.. Chest CTA 07/28/21 00:17 IMPRESSION: No acute findings. Laboratory Results WBC 8.0 10^3/uL (4.0-10.0) 07/27/21 23:45 RBC 4.42 10^6/uL (4.1-5.3) 07/27/21 23:45 Hgb 12.0 g/dL (11.5-15.3) 07/27/21 23:45 Hct 37.7 % (37.0-47.0) 07/27/21 23:45 MCV 85.3 fl (81-99) 07/27/21 23:45 MCH 27.1 pg (28.0-34.0) L 07/27/21 23:45 MCHC 31.8 g/dL (30.0-36.0) 07/27/21 23:45 RDW 13.9 % (12.1-15.1) 07/27/21 23:45 Plt Count 325 10^3/cmm (130-400) 07/27/21 23:45 MPV 10.3 fL (7.4-10.4) 07/27/21 23:45 Neut % (Auto) 72.8 % 07/27/21 23:45 Lymph % (Auto) 18.9 % 07/27/21 23:45 [place] % (Auto) 5.6 % 07/27/21 23:45 Eos % (Auto) 2.0 % 07/27/21 23:45 Baso % (Auto) 0.5 % 07/27/21 23:45 Neut # (Auto) 5.85 10^3/uL (1.8-7.7) 07/27/21 23:45 Lymph # (Auto) 1.5 10^3/uL (0.8-4.8) 07/27/21 23:45 [place] # (Auto) 0.5 10^3/uL (0.2-0.9) 07/27/21 23:45 Eos # (Auto) 0.2 10^3/uL (0.0-0.8) 07/27/21 23:45 Baso # (Auto) 0.0 10^3/uL (0.0-0.1) 07/27/21 23:45 Nucleated RBC % (auto) 0 % 07/27/21 23:45 Nucleated RBCs # 0.0 /100WBC 07/27/21 23:45 D-Dimer 1.77 ug/mIFEU (0-0.59) H 07/27/21 23:45 Sodium 138 mmol/L (136-145) 07/27/21 23:45 Potassium 3.9 mmol/L (3.5-5.1) 07/27/21 23:45 Chloride 103 mmol/L (98-107) 07/27/21 23:45 Carbon Dioxide 26 mmol/L (22-29) 07/27/21 23:45 Anion Gap 12.9 (5-19) 07/27/21 23:45 BUN 8 mg/dL (6-20) 07/27/21 23:45 Creatinine 0.6 mg/dL (0.5-0.9) 07/27/21 23:45 GFR Calculation 112.5 mL/min (90-130) 07/27/21 23:45 Glucose 93 mg/dL (65-115) 07/27/21 23:45 Calculated Osmolality 284 mOsm/kg (285-295) L 07/27/21 23:45 Calcium 9.2 mg/dL (8.5-10.5) 07/27/21 23:45 Total Bilirubin 0.2 mg/dL (0.15-1.2) 07/27/21 23:45 AST 13 U/L (0-32) 07/27/21 23:45 ALT 11 U/L (0-33) 07/27/21 23:45 Alkaline Phosphatase 87 IU/L (35-105) 07/27/21 23:45 Troponin T Gen 5 ng/L 6 ng/L (0-10) 07/27/21 23:45 Total Protein 7.3 g/dL (6.6-8.7) 07/27/21 23:45 Albumin 4.5 g/dL (3.5-5.2) 07/27/21 23:45 Globulin 2.8 g/dL (1.3-4.6) 07/27/21 23:45 Discharge Plan Discharge Patient Disposition: Home Clinical Impression: Atypical chest pain, Acute costochondritis Condition: Stable Prescriptions: New Medrol (Zac) 4 mg tablets,dose pack See Rx Instructions .ROUTE .COMPLEX Qty: 21 0RF Rx Instructions: orally per package directions Discontinued dexamethasone 6 mg tablet 6 mg PO DAILY Qty: 5 0RF prednisone 20 mg tablet 20 mg PO BID Qty: 6 0RF No Action acyclovir 400 mg tablet 400 mg PO BID 0RF amoxicillin-pot clavulanate [Augmentin] 875-125 mg tablet 1 tab PO BID Qty: 20 0RF ondansetron HCl [Zofran] 4 mg tablet 4 mg PO Q6H PRN (Reason: nausea and vomiting) Qty: 20 0RF Vitamin D3 1,000 units 1,000 units PO DAILY 0RF Discharge Orders: Discharge ED (Routine); Ordered 07/28/21 Ordered By: Carlos Valenzuela Referrals: Columba Huber FNP-C [Primary Care Provider] - 4-7 days Patient Instructions: Costochondritis (ED) Activity Restrictions/Additional Instructions: Return for fever, worsening pain despite treatment, shortness of breath, any other concerning symptoms. 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
[2021-07-28 01:49] VITALS: BP 125/91
== END 2021-07-28 02:26 | disposition home or self-care (01) ==
PROVIDERS: Emergency Provider Emergency Medicine; PCP Nurse Practitioner Family
DX: M94.0 Chondrocostal junction syndrome [Tietze] (principal); R07.89 Other chest pain
CPT/HCPCS: 71045; 71275; 80053; 84484; 85025; 85378; 93005; 99283; Q9967

== ENCOUNTER 2021-08-20 17:42 | Emergency (ER) | payer SELFPAY ==
[2021-08-20 18:01] VITALS: BP 127/65; PULSE 92; RESP 18; TEMP 36.8; O2SAT 99; BMI 23.8
--- NOTE | 2021-08-20 18:07 | W.ED.SOB ---
HPI - SOB/Dyspnea General: Chief Complaint: Shortness of Breath/Dyspnea Stated Complaint: SOB/chest pain/cough Time Seen by Provider: 08/20/21 18:07 History of Present Illness: HPI Narrative: 36-year-old female comes in today with complaints of cough, greenish colored productive sputum, and some mild shortness of breath. Patient had a similar episode about 6 weeks ago. At that time patient had a full extensive work-up and was ruled out for having a PE. CTA at that time showed no lung abnormalities. Patient has a history of autoimmune disease, and asthma as a child. Patient denies cigarette smoking. Patient does report being around people who do smoke. Associated symptoms: Deny chest pain or fever(s) Review of Systems General: Reports: 10 or more systems reviewed and unremarkable except in HPI and below Const: Denies: fever(s) Card: Denies: chest pain Resp: Reports: dyspnea and productive cough Musc: Denies: neck pain Skin/Breast: Denies: rash PFSH ED PFSH: Medical History (Updated 08/20/21 @ 18:33 by LETITIA Amato) Enlarged uterus High risk medication use Immunization counseling Inflammatory arthritis Liver hemangioma Positive NATALIE (antinuclear antibody) Seropositive rheumatoid arthritis Sjogrens syndrome Surgical History History of tubal ligation Family History Other Cancer Diabetes Hypertension Stroke Denies family history of Rheumatoid arthritis Lupus Social History Smoking and tobacco status: never smoked Alcohol intake: never Female Reproductive History: Date of last menstrual period: 06/20/19 Physical Exam Const: COMMON NORMALS: alert HENMT: COMMON NORMALS: normocephalic HEAD & SCALP: normocephalic THROAT: posterior oropharynx normal Neck/C-Spine: COMMON NORMALS: full ROM Resp: COMMON NORMALS: normal respiratory effort and clear to auscultation bilaterally AUSCULTATION: clear to auscultation bilaterally Cardio: COMMON NORMALS: regular rate RATE: regular rate : COMMON NORMALS: Yes no CVA tenderness BLADDER/KIDNEY EXAM: Yes no CVA tenderness Back/Pelvis: COMMON NORMALS: no CVA tenderness Extremity: COMMON NORMALS: no pedal edema Neuro: SENSORIUM/ORIENTATION: Yes alert Skin: COMMON NORMALS: no rashes or lesions noted GENERAL SKIN EXAM: no rashes or lesions noted Course Vital Signs: Vital signs: Vital Signs Temperature 98.2 F 08/20/21 18:01 Pulse Rate 92 08/20/21 18:01 Respiratory Rate 18 08/20/21 18:01 Blood Pressure 127/65 08/20/21 18:01 Pulse Oximetry 99 08/20/21 18:01 MDM - SOB/Dyspnea Medical Decision Making 36-year-old female comes in today with productive cough and some shortness of breath. Patient does have a history of asthma as a child. On exam lungs were clear to auscultation with some mild bronchial noise. Skin was warm and dry. Vital signs were normal. Differential diagnosis includes not limited to pneumonia, acute bronchitis, exacerbation of asthma. Chest x-ray was unremarkable. We will treat patient's for acute bronchitis. Patient was given 10 mg of dexamethasone, will start on doxycycline 100 mg twice a day for 7 days. Patient was instructed to use her albuterol inhaler every 4 hours as needed for cough or shortness of breath. Patient stated understanding and agreed to plan. Discharge Plan Discharge Patient Disposition: Home Clinical Impression: Acute bronchitis Qualifiers: Bronchitis organism: unspecified organism Qualified Code(s): J20.9 - Acute bronchitis, unspecified Condition: Stable Prescriptions: New doxycycline monohydrate 100 mg capsule 100 mg PO BID 7 Days Qty: 14 0RF prednisone 20 mg tablet 20 mg PO BID 5 Days Qty: 10 0RF Discontinued amoxicillin-pot clavulanate [Augmentin] 875-125 mg tablet 1 tab PO BID Qty: 20 0RF methylprednisolone [Medrol (Zac)] 4 mg tablets,dose pack See Rx Instructions .ROUTE .COMPLEX Qty: 21 0RF Rx Instructions: orally per package directions No Action acyclovir 400 mg tablet 400 mg PO BID 0RF ondansetron HCl [Zofran] 4 mg tablet 4 mg PO Q6H PRN (Reason: nausea and vomiting) Qty: 20 0RF Vitamin D3 1,000 units 1,000 units PO DAILY 0RF Discharge Orders: Discharge ED (Routine); Ordered 08/20/21 Ordered By: Victor M Robles Referrals: Rosalind Graves FNP [Primary Care Provider] - Discharge Diet: Usual diet Discharge Activity: Increase activity as tolerated Patient Instructions: Acute Bronchitis (ED) Activity Restrictions/Additional Instructions: Use albuterol inhaler 2 puffs every 4 hours as needed for cough or shortness of breath. Drink plenty of water and fluids. Use acetaminophen and ibuprofen for discomfort. Take steroid burst for the next 5 days. Use doxycycline 100 mg twice a day for 7 days. Follow-up with primary care for further instructions. Return to ER for new concerns. Coding Level of Care Code ED Head Animal Trainer for Kaelyn Vasquez
--- NOTE | 2021-08-20 18:08 | XRR_ITS ---
PROCEDURE INFORMATION: Exam: XR Chest Exam date and time: 08/20/2021 6:13 PM Age: 36 years old Clinical indication: Cough; Additional info: Cough, short of breath TECHNIQUE: Imaging protocol: XR of the chest. Views: 1 view. COMPARISON: CR (CHEST, ) 07/27/2021 10:35 PM FINDINGS: Lungs: Unremarkable. No consolidation. Pleural spaces: Unremarkable. No pleural effusion. No pneumothorax. Heart/Mediastinum: Unremarkable. No cardiomegaly. Bones/joints: Unremarkable. XR/XR chest 1V portable [id number] IMPRESSION: No acute findings.
[2021-08-20] MEDS: doxycycline 100 mg Tablet PO (18:55)
[2021-08-20] MEDS: dexamethasone 10 mg/mL INJ IM (18:56)
== END 2021-08-20 19:01 | disposition home or self-care (01) ==
PROVIDERS: Emergency Provider Nurse Practitioner Family; PCP Nurse Practitioner Family
DX: J20.9 Acute bronchitis, unspecified (principal)
CPT/HCPCS: 71045; 96372; 99283; J1100

== ENCOUNTER 2021-08-31 17:43 | Emergency (ER) | payer SELFPAY ==
[2021-08-31 17:47] VITALS: BP 114/76; PULSE 76; RESP 16; TEMP 36.7; O2SAT 99; BMI 21.6
--- NOTE | 2021-08-31 18:04 | USR_ITS ---
Order edited. Original sign date/time: 08/31/20212040 PROCEDURE INFORMATION: Exam: US Duplex Artery or Vein of the Abdominal and/or Reproductive Organs, Limited Ovaries Exam date and time: 08/31/2021 6:46 PM Age: 36 years old Clinical indication: Abdominal pain; Lower abdomen; Additional info: Pelvic pain, HX of ovarian cysts TECHNIQUE: Imaging protocol: Real-time duplex ultrasound scan of the arterial or venous flow with gonzalez scale, color Doppler flow and spectral waveform analysis with image documentation. Limited duplex exam focused on the ovaries. Duplex images required to evaluate for torsion and other vascular conditions. COMPARISON: US pelvic complete* [id number] 08/14/2019 8:33 AM FINDINGS: Right ovary/adnexa: Normal duplex of the ovary. Normal Doppler waveforms and color flow. No evidence of ovarian torsion. Left ovary/adnexa: Normal duplex of the ovary. Normal Doppler waveforms and color flow. No evidence of ovarian torsion. PROCEDURE INFORMATION: Exam: US Pelvis, Transvaginal Exam date and time: 08/31/2021 6:46 PM Age: 36 years old Clinical indication: Abdominal pain; Lower abdomen; Additional info: Pelvic pain, HX of ovarian cysts TECHNIQUE: Imaging protocol: Real-time transvaginal pelvic ultrasound with image documentation. Transvaginal imaging was used for better evaluation of the endometrium, adnexa, and/or cervix. COMPARISON: US pelvic complete* [id number] 07/15/2019 12:54 AM FINDINGS: Uterus: Uterus is normal in size and contour and is anteverted measuring 8.6 x 3.5 x 5.1 cm. No large discrete myoma however myometrium is mildly heterogeneous suggesting possible element of mild uterine adenomyosis. Ill-defined central endometrial echo which measures about 4 mm in thickness. Cervix: Unremarkable cervix. Right ovary/adnexa: Right ovary measures 1.5 x 3 by 2.9 cm. A few simple ovarian follicles are present bilaterally, the largest measuring 12 mm on the right. Next item no suspicious adnexal region masses or ovarian stromal edema on either side. Next item there is color Doppler flow in both ovarian parenchyma, demonstrating normal spectral waveforms. Left ovary/adnexa: Left ovary measures 1.3 x 1.8 by 2 cm. Intraperitoneal space: Transvaginal pelvic ultrasound examination was performed. Transabdominal images were not obtained. No free fluid. MTDD US/US transvaginal [id number] IMPRESSION: Normal duplex of the ovaries. No evidence of ovarian torsion. IMPRESSION: 1. Slightly heterogeneous uterine myometrium. Ill-defined endometrium with no obvious thickening. 2. No acute findings or adnexal region mass/torsion otherwise.
--- NOTE | 2021-08-31 18:05 | XRR_ITS ---
PROCEDURE INFORMATION: Exam: XR Abdomen Exam date and time: 08/31/2021 6:39 PM Age: 36 years old Clinical indication: Abdominal pain; Prior surgery; Surgery type: Tubal TECHNIQUE: Imaging protocol: XR of the abdomen. Views: 2 Views. Upright and supine views. COMPARISON: CT abdomen pelvis w con* [id number] 07/16/2019 9:39 PM FINDINGS: Gastrointestinal tract: Normal. No bowel dilation. Intraperitoneal space: Normal. No free air. Bones/joints: Unremarkable for age. XR/XR abdomen min 2V [id number] IMPRESSION: No acute findings.
--- NOTE | 2021-08-31 18:05 | ED_ITS ---
HPI - Abdominal Pain General: Chief Complaint: Abdominal Pain Stated Complaint: Abd pain, passed out Time Seen by Provider: 08/31/21 17:52 Source: patient Mode of arrival: ambulatory Limitations: no limitations History of Present Illness: Patient is a 36-year-old female presents to ED today with a complaint of severe abdominal/pelvic pain that has much improved upon arrival to the ED. [place] she developed fairly sudden right lower abdominal pains. Patient states she has a history of ovarian cysts so initially thought it was related to this however pain was excruciating. She states she drove herself to the ED and felt very nauseous on the way here. She states just prior to arrival the pain seemed to immediately improve. She is not having any nausea or vomiting currently. No changes in bowel movements. She is not having any urinary complaints. No vaginal bleeding. No fevers. She has not had any injury/trauma to her abdomen. MD elicited complaint: abdominal pain Pertinent past history: other (ovarian cysts) Onset (ago): hour(s) Pain Consistency: other (now much improved) Quality: sharp Migration to: no migration Exacerbating factors: nothing Relieving factors: nothing Associated Symptoms: Denies change in bowel habits, chills, diarrhea, dysuria, fever(s), nausea and vomiting Related Data: Date of Last Menstrual Period: 06/20/19 Review of Systems Const: Denies: fever(s), chills, body aches, fatigue or malaise Card: Denies: chest pain Resp: Denies: dyspnea GI: Reports: abdominal pain; Denies: nausea, vomiting, diarrhea or change in bowel habits : Reports: pelvic pain; Denies: flank pain, difficulty voiding, dysuria, urinary frequency, urinary urgency, urinary hesitancy, vaginal odor, vaginal bleeding or vaginal discharge Musc: Denies: neck pain, back pain, extremity pain or joint pain Neuro: Denies: headache(s), numbness in extremities, weakness in extremities, sensory changes or dizziness [facility] ED PFSH: Medical History (Updated 08/31/21 @ 20:48 by DEYSI Rodriguez) Enlarged uterus High risk medication use Immunization counseling Inflammatory arthritis Liver hemangioma Positive NATALIE (antinuclear antibody) Seropositive rheumatoid arthritis Sjogrens syndrome Surgical History History of tubal ligation Family History Other Cancer Diabetes Hypertension Stroke Denies family history of Rheumatoid arthritis Lupus Social History Smoking and tobacco status: never smoked Alcohol intake: never Female Reproductive History: Date of last menstrual period: 06/20/19 Physical Exam Const: COMMON NORMALS: no acute distress, average body habitus, patient oriented x3, no limitations, alert and well nourished GENERAL APPEARANCE: cooperative ORIENTATION/CONSCIOUSNESS: Yes awake, Yes oriented to person, Yes oriented to place and Yes oriented to time HENMT: COMMON NORMALS: normocephalic and atraumatic HEAD & SCALP: normal to inspection, normocephalic and atraumatic Chest: COMMONS NORMALS: normal inspection of the chest and normal palpation of entire chest wall Resp: COMMON NORMALS: normal respiratory effort and clear to auscultation bilaterally AUSCULTATION: clear to auscultation bilaterally Cardio: COMMON NORMALS: regular rate and regular rhythm RATE: regular rate RHYTHM: regular rhythm GI: COMMON NORMALS: Normal to inspection, nondistended, normoactive bowel sounds present, Soft to palpation, No hepatosplenomegaly present and no masses INSPECTION: Yes normal to inspection AUSCULTATION: Yes normoactive bowel sounds PALPATION: Yes Soft to palpation, Yes Tenderness to palpation present (GI) (mild tenderness throughout abdomen but moreso to R lower), No Guarding due to palpation present (GI), No Rigid due to palpation, Yes No hepatosplenomegaly present and Yes Other GI palpation findings present (non-surgical exam) : COMMON NORMALS: Yes no CVA tenderness BLADDER/KIDNEY EXAM: Yes no CVA t enderness Back/Pelvis: COMMON NORMALS: no CVA tenderness, thoracic and lumbar spine normal to inspection, no thoracic nor lumbar tenderness and thoraco-lumbar ROM normal Extremity: COMMON NORMALS: normal to inspection GENERAL: Yes normal exam except as noted Neuro: JAYNE COMA SCALE: document GCS findings [place] coma scale eye opening: Spontaneous Jayne coma scale verbal response: Orientated [place] coma scale motor response: Obey commands [place] coma scale total score: 15 COMMON NORMALS: patient oriented x3, moves all extremities, no focal motor deficits and no sensory deficits noted SENSORIUM/ORIENTATION: Yes alert, Yes oriented to person, Yes oriented to place and Yes oriented to time Skin: COMMON NORMALS: no rashes or lesions noted GENERAL SKIN EXAM: no jazmyn hes or lesions noted Course Vital Signs: Vital signs: Vital Signs Temperature 98.1 F 08/31/21 17:47 Pulse Rate 70 08/31/21 20:30 Respiratory Rate 16 08/31/21 17:47 Blood Pressure 110/82 08/31/21 20:30 Pulse Oximetry 100 08/31/21 20:30 MDM - Abdominal Pain Medical Decision Making Repeat examination reveals patient in no acute distress. She states she is no longer having any discomfort. Vital signs are stable. Blood work is unremarkable. UA showing some hematuria. Ultrasound does not reveal any clear etiology for her discomfort. We spoke about the possibility of a renal/ureter stone given her acute onset and hematuria in her urine. Again she is not having any discomfort currently. Recommend she monitor symptoms at home at this point. Return to ED precautions verbally given. Lab Data : 08/31/21 18:15 08/31/21 18:15 Labs/Radiology: Radiology Impressions Pelvic/Transvag US 08/31/21 18:04 IMPRESSION: Normal duplex of the ovaries. No evidence of ovarian torsion. IMPRESSION: 1. Slightly heterogeneous uterine myometrium. Ill-defined endometrium with no obvious thickening. 2. No acute findings or adnexal region mass/torsion otherwise. Abdomen X-Ray 08/31/21 18:05 IMPRESSION: No acute findings. Laboratory Results WBC 6.9 10^3/uL (4.0-10.0) 08/31/21 18:15 RBC 4.46 10^6/uL (4.1-5.3) 08/31/21 18:15 Hgb 12.1 g/dL (11.5-15.3) 08/31/21 18:15 Hct 38.0 % (37.0-47.0) 08/31/21 18:15 MCV 85.2 fl (81-99) 08/31/21 18:15 MCH 27.1 pg (28.0-34.0) L 08/31/21 18:15 MCHC 31.8 g/dL (30.0-36.0) 08/31/21 18:15 RDW 14.6 % (12.1-15.1) 08/31/21 18:15 Plt Count 305 10^3/cmm (130-400) 08/31/21 18:15 MPV 10.4 fL (7.4-10.4) 08/31/21 18:15 Neut % (Auto) 70.6 % 08/31/21 18:15 Lymph % (Auto) 20.8 % 08/31/21 18:15 [place] % (Auto) 6.6 % 08/31/21 18:15 Eos % (Auto) 1.3 % 08/31/21 18:15 Baso % (Auto) 0.4 % 08/31/21 18:15 Neut # (Auto) 4.85 10^3/uL (1.8-7.7) 08/31/21 18:15 Lymph # (Auto) 1.4 10^3/uL (0.8-4.8) 08/31/21 18:15 [place] # (Auto) 0.5 10^3/uL (0.2-0.9) 08/31/21 18:15 Eos # (Auto) 0.1 10^3/uL (0.0-0.8) 08/31/21 18:15 Baso # (Auto) 0.0 10^3/uL (0.0-0.1) 08/31/21 18:15 Nucleated RBC % (auto) 0 % 08/31/21 18:15 Nucleated RBCs # 0.0 /100WBC 08/31/21 18:15 Sodium 138 mmol/L (136-145) 08/31/21 18:15 Potassium 3.9 mmol/L (3.5-5.1) 08/31/21 18:15 Chloride 101 mmol/L (98-107) 08/31/21 18:15 Carbon Dioxide 29 mmol/L (22-29) 08/31/21 18:15 Anion Gap 11.9 (5-19) 08/31/21 18:15 BUN 10 mg/dL (6-20) 08/31/21 18:15 Creatinine 0.7 mg/dL (0.5-0.9) 08/31/21 18:15 GFR Calculation 94.2 mL/min (90-130) 08/31/21 18:15 Glucose 86 mg/dL (65-115) 08/31/21 18:15 Calculated Osmolality 284 mOsm/kg (285-295) L 08/31/21 18:15 Calcium 9.5 mg/dL (8.5-10.5) 08/31/21 18:15 Total Bilirubin 0.2 mg/dL (0.15-1.2) 08/31/21 18:15 AST 14 U/L (0-32) 08/31/21 18:15 ALT 13 U/L (0-33) 08/31/21 18:15 Alkaline Phosphatase 82 IU/L (35-105) 08/31/21 18:15 Total Protein 7.2 g/dL (6.6-8.7) 08/31/21 18:15 Albumin 4.5 g/dL (3.5-5.2) 08/31/21 18:15 Globulin 2.7 g/dL (1.3-4.6) 08/31/21 18:15 Lipase 47 U/L (13-60) 08/31/21 18:15 HCG, Qual Negative (Negative) 08/31/21 18:15 Urine Color Yellow (Yellow) 08/31/21 18:00 Urine Appearance Sl cloudy (CLEAR) A 08/31/21 18:00 Urine pH 7 (5-7) 08/31/21 18:00 Ur Specific [place] 1.010 (1.005-1.030) 08/31/21 18:00 Urine Protein Neg (Negative) 08/31/21 18:00 Urine Glucose (UA) Norm (Normal) 08/31/21 18:00 Urine Ketones Negative (Negative) 08/31/21 18:00 Urine Blood 2+ (Negative) H 08/31/21 18:00 Urine Nitrate Negative (Negative) 08/31/21 18:00 Urine Bilirubin Neg (Negative) 08/31/21 18:00 Urine Urobilinogen Norm mg/dL (Negative) 08/31/21 18:00 Ur Leukocyte Esterase Negative (Negative) 08/31/21 18:00 Urine RBC 10-15 /hpf (0-2) H 08/31/21 18:00 Urine WBC 0-4 /hpf (0-5) H 08/31/21 18:00 Ur Squamous Epith Cells 5-10 /hpf (0-5) H 08/31/21 18:00 Amorphous Sediment 3+ /hpf 08/31/21 18:00 Urine Bacteria 1+ /hpf (NONE) H 08/31/21 18:00 Discharge Plan Discharge Patient Disposition: Home Clinical Impression: Resolved abdominal pain Condition: Stable Prescriptions: No Action acyclovir 400 mg tablet 400 mg PO BID 0RF ondansetron HCl [Zofran] 4 mg tablet 4 mg PO Q6H PRN (Reason: nausea and vomiting) Qty: 20 0RF Vitamin D3 1,000 units 1,000 units PO DAILY 0RF Discharge Orders: Discharge ED (Routine); Ordered 08/31/21 Ordered By: Lindsey Lemons Referrals: Rosalind Graves FNP [Primary Care Provider] - Coding Level of Care Code ED Temple Marker for 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
[2021-08-31 18:21] LABS: Basophils % 0.4 %; Eosinophils # 0.1 10^3/uL (0.0-0.8); Eosinophils % 1.3 %; Hemoglobin 12.1 g/dL (11.5-15.3); Lymphocytes # 1.4 10^3/uL (0.8-4.8); Lymphocytes % 20.8 %; Mean Corpuscular HGB Conc 31.8 g/dL (30.0-36.0); Mean Corpuscular Hemoglobin 27.1 pg (28.0-34.0); Mean Corpuscular Volume 85.2 fl (81-99); Mean Platelet Volume 10.4 fL (7.4-10.4); Monocytes # 0.5 10^3/uL (0.2-0.9); Monocytes % 6.6 %; Neutrophils # 4.85 10^3/uL (1.8-7.7); Neutrophils % 70.6 %; Nucleated Red Blood Cells % 0 %; Platelet Count 305 10^3/cmm (130-400); Red Blood Count 4.46 10^6/uL (4.1-5.3); Red Cell Distribution Width 14.6 % (12.1-15.1); White Blood Count 6.9 10^3/uL (4.0-10.0)
[2021-08-31 18:28] LABS: Add Urine Microscopic? YES; Bilirubin Urine Neg (Negative); Blood Urine 2+ (Negative); Glucose Urine UA Norm (Normal); Ketones Urine Negative (Negative); Leukocyte Esterase Urine Negative (Negative); Nitrate Urine Negative (Negative); Protein Urine Neg (Negative); Urine Color Yellow (Yellow); Urobilinogen Urine Norm (Negative); pH Urine 7 (5-7)
[2021-08-31 18:31] LABS: Add Urine Culture? Yes; Amorphous Sediment Urine 3+ /hpf; Bacteria Urine 1+ /hpf; WBC Urine 0-4 /hpf (0-5)
[2021-08-31 18:41] LABS: Alanine Aminotransferase 13 U/L (0-33); Albumin Level 4.5 g/dL (3.5-5.2); Alkaline Phosphatase 82 IU/L (35-105); Aspartate Amino Transferase 14 U/L (0-32); Blood Urea Nitrogen 10 mg/dL (6-20); Calcium 9.5 mg/dL (8.5-10.5); Carbon Dioxide 29 mmol/L (22-29); Chloride 101 mmol/L (98-107); Globulin 2.7 g/dL (1.3-4.6); Glomerular Filtration Rate 94.2 mL/min (90-130); Glucose 86 mg/dL (65-115); Lipase 47 U/L (13-60); Osmolality Calculated 284 mOsm/kg (285-295); Sodium 138 mmol/L (136-145); Total Bilirubin 0.2 mg/dL (0.15-1.2); Total Protein 7.2 g/dL (6.6-8.7)
[2021-08-31 18:45] LABS: Anion Gap 11.9 (5-19); Potassium 3.9 mmol/L (3.5-5.1)
[2021-08-31 18:47] LABS: HCG, Serum Qual Negative (Negative)
[2021-08-31 18:50] VITALS: BP 117/80; PULSE 86; O2SAT 100
[2021-08-31 19:30] VITALS: BP 112/80; PULSE 77; O2SAT 100
[2021-08-31 20:00] VITALS: BP 108/76; PULSE 74; O2SAT 100
[2021-08-31 20:30] VITALS: BP 110/82; PULSE 70; O2SAT 100
[2021-08-31 20:55] VITALS: BP 109/77; PULSE 72; O2SAT 99
== END 2021-08-31 20:56 | disposition home or self-care (01) ==
PROVIDERS: Emergency Provider Physician Assistant; PCP Nurse Practitioner Family
DX: R10.9 Unspecified abdominal pain (principal); R31.9 Hematuria, unspecified
CPT/HCPCS: 74019; 76830; 76856; 80053; 81001; 83690; 84703; 85025; 87086; 99283

== ENCOUNTER → 2021-09-25 10:28 | Outpatient (BNVA) | payer SELFPAY | PROVIDERS: PCP Nurse Practitioner Family; Visit Provider Nurse Practitioner Family | DX: N76.4 Abscess of vulva (principal) | CPT/HCPCS: 87070; 87077; 87184; 87205 ==

== ENCOUNTER → 2021-10-10 09:50 | Outpatient (BNVA) | payer SELFPAY | PROVIDERS: PCP Nurse Practitioner Family; Visit Provider Nurse Practitioner Family | DX: Z72.51 High risk heterosexual behavior (principal) | CPT/HCPCS: 87491; 87591; 87661 ==

== ENCOUNTER 2021-11-10 16:17 | Emergency (ER) | payer SELFPAY ==
[2021-11-10 16:48] VITALS: BP 120/85; PULSE 79; RESP 14; TEMP 36.6; O2SAT 100; BMI 23.0
[2021-11-10 18:22] VITALS: BP 157/81; PULSE 65; RESP 16; O2SAT 100
--- NOTE | 2021-11-10 18:32 | W.ED.SKABFB ---
HPI - Skin/Abscess/Foreign Bdy General: Chief complaint: Skin/Abscess/Foreign Body Stated complaint: Spot on stomach wont drain Time Seen by Provider: 11/10/21 18:08 Source: patient Mode of arrival: ambulatory Limitations: no limitations History of Present Illness: Patient is a 36-year-old female presents to ED today with a complaint of an abscess to her abdomen. She states abscess has been present over the past 4 days or so. She states she was seen and states they poked it placed her on oral clindamycin. She states abscess continues to enlarge and worsen. She does have a history of MRSA. Patient is not having any fevers, chills, body aches. MD complaint: abscess/boil Onset (ago): day(s) Tetanus up to date: yes Location: generalized (abdominal) Pain Consistency: constant Relieving factors: none Exacerbating factors: none Context: none Associated symptoms: Reports no associated symptoms; Deny chills, fever(s), nausea or vomiting Treatments prior to arrival: antibiotic Review of Systems Const: Denies: fever(s), chills, body aches, fatigue or malaise GI: Denies: nausea, vomiting, diarrhea or change in bowel habits Musc: Denies: neck pain, back pain, extremity pain or joint pain Skin/Breast: Reports: other (abscess to abdomen) [facility] ED PFSH: Medical History Enlarged uterus High risk medication use Immunization counseling Inflammatory arthritis Liver hemangioma Positive NATALIE (antinuclear antibody) Seropositive rheumatoid arthritis Sjogrens syndrome Surgical History History of tubal ligation Family History Other Cancer Diabetes Hypertension Stroke Denies family history of Rheumatoid arthritis Lupus Social History Smoking and tobacco status: never smoked Alcohol intake: never Female Reproductive History: Date of last menstrual period: 06/20/19 Physical Exam Const: COMMON NORMALS: no acute distress, average body habitus, patient oriented x3, no limitations, healthy appearing, alert and well nourished Resp: COMMON NORMALS: normal respiratory effort and clear to auscultation bilaterally AUSCULTATION: clear to auscultation bilaterally Cardio: COMMON NORMALS: regular rate and regular rhythm RATE: regular rate RHYTHM: regular rhythm GI: COMMON NORMALS: Normal to inspection, nondistended, normoactive bowel sounds present, Soft to palpation, No hepatosplenomegaly present and no masses PALPATION: Yes Soft to palpation and Yes No hepatosplenomegaly present GI image (female): 1. abdominal wall abscess; she has about 3 inches of mild erythema/induration with a central area of fluctuance measuring about 1-2cm; no active drainage Neuro: JAYNE COMA SCALE: document GCS findings [place] coma scale eye opening: Spontaneous [place] coma scale verbal response: Orientated [place] coma scale motor response: Obey commands [place] coma scale total score: 15 COMMON NORMALS: patient oriented x3 SENSORIUM/ORIENTATION: Yes alert Skin: NARRATIVE SKIN EXAM: see above for pertinent skin findings Procedures Abscess I/D Site: abdomen Local Anesthetic: lidocaine 1% and with epi Amount of anesthesia used (mL): 5.0 Technique: incised with #11 blade Amount of fluid expressed (mL): 3.0 Irrigation: Yes Packing used?: plain Course Vital Signs: Vital signs: Vital Signs Temperature 97.9 F 11/10/21 16:48 Pulse Rate 65 11/10/21 18:22 Respiratory Rate 16 11/10/21 18:22 Blood Pressure 157/81 11/10/21 18:22 Pulse Oximetry 100 11/10/21 18:22 Oxygen Delivery Me thod 11/10/21 18:22 MDM - Skin/Abscess/Foreign Bdy Medicial Decision Making Abscess was incised and drained and packed. Culture obtained. She should start noticing an improved clinical response on the clindamycin now that the abscess is drained. She states she believes she has approximately 4 days left of this antibiotic. We will prescribe her for another 3 days and extend her course. She may remove the packing on her own in 72 hours if she continues to improve. Otherwise she needs to return to the emergency department in 48 hours for reevaluation and packing recheck. Discharge Plan Discharge Patient Disposition: Home Clinical Impression: Abscess of abdominal wall Condition: Stable Prescriptions: Continued clindamycin HCl 300 mg capsule 300 mg PO TID Qty: 12 0RF No Action acyclovir 400 mg tablet 400 mg PO BID mupirocin 2 % ointment 1 applic topical BID Qty: 15 0RF metronidazole 500 mg tablet 500 mg PO BID Qty: 14 0RF ondansetron HCl [Zofran] 4 mg tablet 4 mg PO Q6H PRN (Reason: nausea and vomiting) Qty: 20 0RF Vitamin D3 1,000 units 1,000 units PO DAILY Discharge Orders: Discharge ED (Routine); Ordered 11/10/21 Ordered By: Lindsey Lemons Referrals: Rosalind Graves FNP [Primary Care Provider] - Patient Instructions: Abscess (ED), Abscess Incision and Drainage (DC) Coding Level of Care Code ED Milieu Therapist for Eliotg Christina
[2021-11-10] MEDS: clindamycin 150 mg/mL SDV 6 mL 600 MG IM (20:06)
--- NOTE | 2021-11-15 10:54 | PC.NURSE ---
pt called and notified of culture results positive for MRSA provider left instruction for pt to return for IV antibiotics [place], asked provider on duty (Tiffani) and he stated pt not needed to return unless abscess is getting worse due to current antibiotic treatments. pt was instructed to go to local emergency department if abscess gets worse, starts running fever, confusion, shortness of breath, tachycardia or any signs of sepsis. follow up with pcp
== END 2021-11-10 20:10 | disposition home or self-care (01) ==
PROVIDERS: Emergency Provider Physician Assistant; PCP Nurse Practitioner Family
DX: L02.211 Cutaneous abscess of abdominal wall (principal)
CPT/HCPCS: 10060; 87070; 87075; 87077; 87186; 87205; 96372; 99284; J3490

== ENCOUNTER 2021-12-13 17:07 | Emergency (ER) | payer SELFPAY ==
[2021-12-13 17:12] VITALS: BP 117/78; PULSE 76; RESP 16; TEMP 36.7; O2SAT 98; BMI 22.1
--- NOTE | 2021-12-13 17:29 | W.ED.GENADLT ---
HPI - General Adult General: Chief complaint: Wound/Laceration Stated complaint: abscess on buttocks Time Seen by Provider: 12/13/21 17:21 History of Present Illness: Patient is a 36-year-old female with a history of recurrent MRSA infection including abscess/cellulitis presenting to the emergency room for evaluation of right glued pain and swelling. Patient tells me that she thinks that she was bitten by insect 3 days ago since then has noticed redness and significant pain. Patient thinks that she may have an abscess again. Patient referred for subjective fever and chills at home. Denies any other recent complaints. Patient tells me that she has no history IV drug use, HIV, diabetes or any history of immunocompromise. Patient denies any chest pain, shortness of palpitation, abdominal pain diarrhea melena hematochezia or complaints. Onset:3 days ago Duration:3 days Location:home Severity:moderate Associated symptoms: Deny chest pain, dyspnea, nausea, palpitations or vomiting Review of Systems Const: Reports: fever(s) and chills Eyes: Denies: change in vision ENMT: Denies: mouth pain Card: Denies: chest pain or palpitations Resp: Denies: dyspnea or non-productive cough GI: Denies: abdominal pain, nausea, vomiting or diarrhea : Denies: dysuria Musc: Denies: extremity pain Skin/Breast: Reports: new lesions (+R glute swelling and pain) Neuro: Denies: weakness in extremities Psych: Reports: other (Normal mood) Sekou/Lymph: Denies: easy bruising PFSH ED PFSH: Medical History Enlarged uterus High risk medication use Immunization counseling Inflammatory arthritis Liver hemangioma Positive NATALIE (antinuclear antibody) Seropositive rheumatoid arthritis Sjogrens syndrome Surgical History History of tubal ligation Family History Other Cancer Diabetes Hypertension Stroke Denies family history of Rheumatoid arthritis Lupus Social History Smoking and tobacco status: never smoked Alcohol intake: never Female Reproductive History: Date of last menstrual period: 12/09/21 Physical Exam Const: COMMON NORMALS: alert HENMT: COMMON NORMALS: atraumatic HEAD & SCALP: atraumatic MOUTH: moist mucous membranes not abnormal Eye: COMMON NORMALS: EOMs intact bilaterally and conjunctivae normal CONJUNCTIVA: Yes conjunctivae normal Neck/C-Spine: COMMON NORMALS: full ROM and supple Resp: COMMON NORMALS: normal respiratory effort and clear to auscultation bilaterally AUSCULTATION: clear to auscultation bilaterally Cardio: COMMON NORMALS: regular rate RATE: regular rate GI: COMMON NORMALS: Soft to palpation and non-tender PALPATION: Yes Soft to palpation Extremity: COMMON NORMALS: full ROM Neuro: SENSORIUM/ORIENTATION: Yes alert MOTOR EXAM: No Abnormal motor strength present and Other motor observations present (no focal motor deficits) Psych: COMMON NORMALS: speech normal SPEECH: Yes normal speech MOOD & AFFECT: Yes euthymic mood Skin: NARRATIVE SKIN EXAM: + Right gluteal large induration with fluctuance and surrounding erythema meausring 4cm x 5.4 cm Procedures Abscess I/D Site: back Side (if applicable): right Local Anesthetic: lidocaine 1%, with epi and with bicarb Amount of anesthesia used (mL): 10 Technique: incised with #11 blade Amount of fluid expressed (mL): 8 Irrigation: Yes Packing used?: plain Complications: other (none) Course Vital Signs: Vital signs: Vital Signs Temperature 98.1 F 12/13/21 17:12 Pulse Rate 74 12/13/21 18:14 Respiratory Rate 16 12/13/21 18:14 Blood Pressure 128/92 12/13/21 18:14 Pulse Oximetry 98 12/13/21 18:14 Oxygen Delivery Ny thod 12/13/21 17:12 MDM - General Adult Medical Decision Making Patient is a 36-year-old female with a history of recurrent MRSA infection including abscess/cellulitis presenting to the emergency room for evaluation of right gluteal pain and swelling x 3 days. Exam showed right gluteal large induration with fluctuance and surrounding erythema meausring 4cm x 5.4 cm. Please refer to procedure note for I&D and packed. Rx doxycycline and cephalexin for cellulitis/abscess, T3 PRN pain Disposition: Discharge. Patient counseled regarding diagnostic impression, treatment plan. Patient given ED strict return precautions to return for continuation, worsening, or development of new symptoms. Instructed to f/u w/ PCP regarding symptoms today. Patient verbalized understanding. Discharge Plan Discharge Patient Disposition: Home Clinical Impression: Abscess, Cellulitis Condition: Stable Prescriptions: New doxycycline hyclate 100 mg capsule 100 mg PO BID 10 Days Qty: 20 0RF cephalexin 500 mg capsule 500 mg PO BID 7 Days Qty: 14 0RF No Action acyclovir 400 mg tablet 400 mg PO BID mupirocin 2 % ointment 1 applic topical BID Qty: 15 0RF metronidazole 500 mg tablet 500 mg PO BID Qty: 14 0RF ondansetron HCl [Zofran] 4 mg tablet 4 mg PO Q6H PRN (Reason: nausea and vomiting) Qty: 20 0RF Vitamin D3 1,000 units 1,000 units PO DAILY clindamycin HCl 300 mg capsule 300 mg PO TID Qty: 12 0RF Discharge Orders: Discharge ED (Routine); Ordered 12/13/21 Ordered By: Octavia Westfall Referrals: Rosalind Graves FNP [Primary Care Provider] - Discharge Diet: Advance as tolerated Discharge Activity: Increase activity as tolerated Patient Instructions: Abscess (ED) Activity Restrictions/Additional Instructions: Please take your antibiotics as instructed. Watch out for signs of skin changes/redness, mouth redeness or swelling, nausea/vomiting, diarrhea, blood in the urine or any new or concerning complaints. Please come back to the emergency room if notice any redness, additional drainage, pain, fever/chills, or any new concerning complaints. Coding Level of Care Code ED Pickling Machine Operator for Kaelyn Vasquez Exam Comprehensive
[2021-12-13] MEDS: sodium bicarbonate 8.4% 1 mEq/mL 50mL Syr 50 MEQ IVP (17:50)
[2021-12-13 18:14] VITALS: BP 128/92; PULSE 74; RESP 16; O2SAT 98
== END 2021-12-13 18:18 | disposition home or self-care (01) ==
PROVIDERS: Emergency Provider Emergency Medicine; PCP Nurse Practitioner Family
DX: L02.31 Cutaneous abscess of buttock (principal); L03.317 Cellulitis of buttock
CPT/HCPCS: 10060; 99284

== ENCOUNTER 2021-12-28 20:22 | Emergency (ER) | payer SELFPAY ==
[2021-12-28 20:26] VITALS: BP 138/93; PULSE 67; RESP 20; TEMP 36.4; O2SAT 97; BMI 22.6
[2021-12-28 20:58] LABS: Add Urine Microscopic? NO; Charge for UA Resulting for Rev
[2021-12-28 21:03] LABS: Bilirubin Urine Neg (Negative); Blood Urine Neg (Negative); Glucose Urine UA Norm (Normal); Ketones Urine Negative (Negative); Leukocyte Esterase Urine Negative (Negative); Nitrate Urine Negative (Negative); Protein Urine Neg (Negative); Urine Appearance Clear (CLEAR); Urine Color Yellow (Yellow); Urobilinogen Urine Neg (Negative); pH Urine 6.5 (5-7)
--- NOTE | 2021-12-28 21:03 | ECG_ITS ---
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 Measurements Intervals [place] Rate: 61 P: 6 ME: 157 QRS: 67 QRSD: 102 T: 5 QT: 380 QTc: 384 Interpretive Statements SINUS RHYTHM Nonspecific T wave changes Compared to ECG 07/27/2021 20:06:22 T-wave abnormality no longer present Electronically Signed On 12-30-2021 0:05:02 CDT by Jono Heart M.D. [email or web address], [facility], [id number]
--- NOTE | 2021-12-28 21:03 | CTR_ITS ---
PROCEDURE INFORMATION: Exam: CT Abdomen And Pelvis With Contrast Exam date and time: 12/28/2021 9:30 PM Age: 36 years old Clinical indication: Abdominal pain; Prior surgery; Additional info: Abd pain TECHNIQUE: Imaging protocol: Computed tomography of the abdomen and pelvis with contrast. Sagittal and coronal reformatted images were created and reviewed. Radiation optimization: All CT scans at this facility use at least one of these dose optimization techniques: automated exposure control; mA and/or kV adjustment per patient size (includes targeted exams where dose is matched to clinical indication); or iterative reconstruction. Contrast material: OMNIPAQUE 350; Contrast volume: 80 ml; Contrast route: INTRAVENOUS (IV); COMPARISON: CT abdomen pelvis w con* [id number] 07/16/2019 9:39 PM RADIATION DOSE METRICS: Total DLP (mGy-cm): 351.16 FINDINGS: Lungs: Visualized lungs are clear. Pleural spaces: No pleural effusion. Heart: Visualized portions of the heart are unremarkable. Liver: Multiple low-density foci in the liver. The smaller foci are too small to characterize. The largest of these measures 1.2 cm, previously measured 7.5 mm on 07/16/2019. Additional smaller foci are stable. Question if these findings could represent a small hemangiomas within the apparent increase in size of the largest due to differences in technique between the 2 studies. An additional exophytic focus in the inferior tip of the right lobe of the liver also has imaging characteristics consistent with a hemangioma and is stable in size measuring 3.1 x 2.9 cm (series 3, image 41). Gallbladder and bile ducts: The gallbladder is unremarkable. No biliary ductal dilatation. Pancreas: The pancreas is unremarkable. No pancreatic ductal dilatation. Spleen: The spleen is unremarkable. Adrenal glands: The right and left adrenal glands are unremarkable. Kidneys and ureters: The right kidney is unremarkable. Stable simple cyst in the left kidney measuring 1.8 cm. The right and left ureters are unremarkable. Stomach and bowel: No obstruction. No mucosal thickening. Appendix: The appendix is visualized and is unremarkable. No findings to suggest acute appendicitis. Intraperitoneal space: No free intraperitoneal air. No ascites. No loculated fluid collections to suggest an abscess. Vasculature: No evidence for aortic aneurysm or aortic dissection. Hepatic veins, portal veins, splenic vein, and SMV are patent. Lymph nodes: No lymphadenopathy. Urinary bladder: The bladder is incompletely filled, which can limit evaluation. No focal abnormality in the bladder however. Reproductive: There is a tampon in the vagina. The uterus is unremarkable. Right ovarian cyst with an enhancing wall, possibly representing a degenerating ovarian cyst. This measures 1.9 x 1.8 cm. Multiple subcentimeter follicles in both right and left ovaries. The surgical clip in the right adnexa is stable in position. A similar surgical clip is seen in the left pericolic gutter. Bones/joints: No acute fracture. Soft tissues: The extra-abdominal soft tissues are unremarkable. CT/CT abdomen pelvis w con* [id number] IMPRESSION: 1. Probable degenerating cyst in the right ovary. 2. The surgical clip in the right adnexa is stable in position. A similar surgical clip is seen in the left pericolic gutter. Question of this could of represent migration of a clip from a prior tubal ligation. Recommend clinical correlation with surgical history. 3. Multiple low-density foci in the liver. The smaller foci are too small to characterize. The largest of these has increased in size. Additional smaller foci are stable. Question if these findings could represent small hemangiomas within apparently the apparent increase in size of the largest due to differences in technique between the 2 studies. 4. An additional larger exophytic focus in the inferior tip of the right lobe of the liver also has imaging characteristics consistent with a hemangioma and is stable in size. 5. Incidental/nonacute findings are listed in the report.
--- NOTE | 2021-12-28 21:07 | W.ED.ABDPA2 ---
HPI - Abdominal Pain General: Chief Complaint: Abdominal Pain Stated Complaint: Chest pain, sob Time Seen by Provider: 12/28/21 20:35 Source: patient Mode of arrival: ambulatory Limitations: no limitations History of Present Illness: 36-year-old female states the last 2 nights she has been having some epigastric abdominal pain. She states that tonight pain started 2 hours ago in the epigastric region with sharp nature states originally was 8-9 10 its improved currently is a 4 out of 10 states that its went to her chest and having some shortness of breath. She had nausea denies vomiting denies fever denies any worsening improving factors. Associated Symptoms: Reports nausea; Denies chills, dysuria and fever(s) Related Data: Date of Last Menstrual Period: 12/28/21 Review of Systems Const: Denies: fever(s), chills, body aches or change in appetite Eyes: Denies: blurry vision or eye discomfort ENMT: Denies: throat pain or dental pain Card: Denies: chest pain Resp: Denies: dyspnea GI: Reports: abdominal pain and nausea : Denies: dysuria Musc: Denies: neck pain or back pain Skin/Breast: Denies: rash Neuro: Denies: headache(s) Psych: Denies: depression Sekou/Lymph: Denies: easy bruising All/Imm: Denies: urticaria PFSH ED PFSH: Medical History (Updated 12/28/21 @ 22:13 by Roma Judd MD) Enlarged uterus High risk medication use Immunization counseling Inflammatory arthritis Liver hemangioma Positive NATALIE (antinuclear antibody) Seropositive rheumatoid arthritis Sjogrens syndrome Surgical History History of tubal ligation Family History Other Cancer Diabetes Hypertension Stroke Denies family history of Rheumatoid arthritis Lupus Social History Smoking and tobacco status: never smoked Alcohol intake: never Female Reproductive History: Date of last menstrual period: 12/28/21 Physical Exam Const: COMMON NORMALS: no acute distress, patient oriented x3 and healthy appearing HENMT: COMMON NORMALS: normocephalic and atraumatic HEAD & SCALP: normocephalic and atraumatic Eye: COMMON NORMALS: Equal, round and reactive pupils present and EOMs intact bilaterally PUPIL: Yes Equal, round and reactive pupils present Neck/C-Spine: COMMON NORMALS: full ROM and supple Chest: COMMONS NORMALS: normal inspection of the chest and normal palpation of entire chest wall Resp: COMMON NORMALS: normal respiratory effort, No retractions, No use of accessory muscles and clear to auscultation bilaterally AUSCULTATION: clear to auscultation bilaterally Cardio: COMMON NORMALS: regular rate, regular rhythm and No murmurs present (Cardio) RATE: regular rate RHYTHM: regular rhythm GI: COMMON NORMALS: Normal to inspection, nondistended, normoactive bowel sounds present, Soft to palpation, non-tender and no masses PALPATION: Yes Soft to palpation Extremity: COMMON NORMALS: normal to inspection and full ROM Neuro: COMMON NORMALS: patient oriented x3, moves all extremities and no focal motor deficits Psych: COMMON NORMALS: mental status grossly normal, Normal thought process present and cooperative THOUGHT PROCESS: Normal thought process present Skin: COMMON NORMALS: no rashes or lesions noted and no wounds GENERAL SKIN EXAM: no rashes or lesions noted Course Vital Signs: Vital signs: Vital Signs Temperature 97.6 F 12/28/21 20:26 Pulse Rate 64 12/28/21 21:49 Respiratory Rate 18 12/28/21 21:49 Blood Pressure 138/93 12/28/21 20:26 Pulse Oximetry 100 12/28/21 21:49 Oxygen Delivery Me thod 12/28/21 21:49 MDM - Abdominal Pain Medical Decision Making Patient presents with abdominal pain CT showed no acute abnormalities here her pain is improved white count blood work are all normal we will get her follow-up with surgery she is return if worsening she understands agrees to plan. Her exam at discharge is benign Lab Data : 12/28/21 21:24 12/28/21 21:24 Labs/Radiology: Radiology Impressions Abdomen/Pelvis CT 12/28/21 21:03 IMPRESSION: 1. Probable degenerating cyst in the right ovary. 2. The surgical clip in the right adnexa is stable in position. A similar surgical clip is seen in the left pericolic gutter. Question of this could of represent migration of a clip from a prior tubal ligation. Recommend clinical correlation with surgical history. 3. Multiple low-density foci in the liver. The smaller foci are too small to characterize. The largest of these has increased in size. Additional smaller foci are stable. Question if these findings could represent small hemangiomas within apparently the apparent increase in size of the largest due to differences in technique between the 2 studies. 4. An additional larger exophytic focus in the inferior tip of the right lobe of the liver also has imaging characteristics consistent with a hemangioma and is stable in size. 5. Incidental/nonacute findings are listed in the report. Chest X-Ray 12/28/21 21:08 IMPRESSION: Negative chest radiograph. Laboratory Results WBC 5.9 10^3/uL (4.0-10.0) 12/28/21 21: RBC 3.83 10^6/uL (4.1-5.3) L 12/28/21 21: Hgb 10.7 g/dL (11.5-15.3) L 12/28/21: Hct 33.4 % (37.0-47.0) L 12/28/21: MCV 87.2 fl (81-99) 12/28/21 21: MCH 27.9 pg (28.0-34.0) L 12/28/21 21: MCHC 32.0 g/dL (30.0-36.0) 12/28/21: RDW 13.4 % (12.1-15.1) 12/28/21 21: Plt Count 287 10^3/cmm (130-400) 12/28/21 21: MPV 10.3 fL (7.4-10.4) 12/28/21 21: Neut % (Auto) 61.5 % 12/28/21 21: Lymph % (Auto) 27.3 % 12/28/21 21:24 Carter % (Auto) 8.2 % 12/28/21: Eos % (Auto) 2.2 % 12/28/21: Baso % (Auto) 0.5 % 12/28/21 21:24 Neut # (Auto) 3.61 10^3/uL (1.8-7.7) 12/28/21: Lymph # (Auto) 1.6 10^3/uL (0.8-4.8) 12/28/21 21:24 Carter # (Auto) 0.5 10^3/uL (0.2-0.9) 12/28/21 21:24 Eos # (Auto) 0.1 10^3/uL (0.0-0.8) 12/28/21 21:24 Baso # (Auto) 0.0 10^3/uL (0.0-0.1) 12/28/21 21:24 Nucleated RBC % (auto) 0 % 12/28/21 21:24 Nucleated RBCs # 0.0 /100WBC 12/28/21 21:24 Sodium 141 mmol/L (136-145) 12/28/21 21:24 Potassium 4.0 mmol/L (3.5-5.1) 12/28/21 21: Chloride 105 mmol/L (98-107) 12/28/21 21: Carbon Dioxide 27 mmol/L (22-29) 12/28/21 21:24 Anion Gap 13.0 (5-19) 12/28/21 21:24 BUN 12 mg/dL (6-20) 12/28/21 21:24 Creatinine 0.6 mg/dL (0.5-0.9) 12/28/21 21:24 GFR Calculation 112.5 mL/min (90-130) 12/28/21 21:24 Glucose 88 mg/dL (65-115) 12/28/21 21:24 Calculated Osmolality 291 mOsm/kg (285-295) 12/28/21 21:24 Calcium 9.5 mg/dL (8.5-10.5) 12/28/21 21:24 Total Bilirubin 0.2 mg/dL (0.15-1.2) 12/28/21 21:24 AST 15 U/L (0-32) 12/28/21 21:24 ALT 12 U/L (0-33) 12/28/21 21:24 Alkaline Phosphatase 99 U/L (35-105) 12/28/21 21:24 Troponin T Baseline 6 ng/L (0-10) 12/28/21 21:24 Total Protein 6.7 g/dL (6.6-8.7) 12/28/21 21:24 Albumin 4.1 g/dL (3.5-5.2) 12/28/21 21:24 Globulin 2.6 g/dL (1.3-4.6) 12/28/21 21:24 Lipase 33 U/L (13-60) 12/28/21 21:24 Urine Color Yellow (Yellow) 12/28/21 20:35 Urine Appearance Clear (CLEAR) 12/28/21 20:35 Urine pH 6.5 (5-7) 12/28/21 20:35 Ur Specific [place] 1.020 (1.005-1.030) 12/28/21 20:35 Urine Protein Neg (Negative) 12/28/21 20:35 Urine Glucose (UA) Norm (Normal) 12/28/21 20:35 Urine Ketones Negative (Negative) 12/28/21 20:35 Urine Blood Neg (Negative) 12/28/21 20:35 Urine Nitrate Negative (Negative) 12/28/21 20:35 Urine Bilirubin Neg (Negative) 12/28/21 20:35 Urine Urobilinogen Neg mg/dL (Negative) 12/28/21 20:35 Ur Leukocyte Esterase Negative (Negative) 12/28/21 20:35 EKG Data EKG 1: I personally reviewed and interpreted this EKG as follows: EKG interpretation date: 12/28/21 EKG interpretation time: 21:17 Interpretation: Normal sinus rhythm heart rate [address] or T wave abnormalities QRS 102 QTC 383 Discharge Plan Discharge Patient Disposition: Home Clinical Impression: Abdominal pain Qualifiers: Abdominal location: generalized Qualified Code(s): R10.84 - Generalized abdominal pain Condition: Stable Prescriptions: New hydrocodone-acetaminophen 5-325 mg tablet 1 tab PO Q6H PRN (Reason: pain) Qty: 14 0RF ondansetron 4 mg tablet,disintegrating 4 mg PO Q6H PRN (Reason: nausea and vomiting) Qty: 14 0RF No Action acyclovir 400 mg tablet 400 mg PO BID mupirocin 2 % ointment 1 applic topical BID Qty: 15 0RF metronidazole 500 mg tablet 500 mg PO BID Qty: 14 0RF ondansetron HCl [Zofran] 4 mg tablet 4 mg PO Q6H PRN (Reason: nausea and vomiting) Qty: 20 0RF Vitamin D3 1,000 units 1,000 units PO DAILY clindamycin HCl 300 mg capsule 300 mg PO TID Qty: 12 0RF Discharge Orders: Discharge ED (Routine); Ordered 12/28/21 Ordered By: Roma Judd Referrals: Alejandro Vieyra MD [Physician] - 1-3 days Rosalind Graves FNP [Primary Care Provider] - Discharge Diet: Advance as tolerated Discharge Activity: Resume usual activity Patient Instructions: Abdominal Pain (ED), Opioid Safety Coding Level of Care Code ED 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
--- NOTE | 2021-12-28 21:08 | XRR_ITS ---
PROCEDURE INFORMATION: Exam: XR Chest Exam date and time: 12/28/2021 9:22 PM Age: 36 years old Clinical indication: Shortness of breath; Additional info: Abd pain TECHNIQUE: Imaging protocol: Radiologic exam of the chest. Views: 1 view. COMPARISON: CR XR chest 1V portable [id number] 08/20/2021 6:13 PM FINDINGS: Lungs: Lungs are clear bilaterally. Pleural spaces: No pleural effusion. No pneumothorax. Heart/Mediastinum: The cardiac silhouette and mediastinal contours are unremarkable. Bones/joints: Unremarkable for age. XR/XR chest 1V portable [id number] IMPRESSION: Negative chest radiograph.
--- NOTE | 2021-12-28 21:20 | PC.NURSE ---
assumed care of patient at this time.
[2021-12-28 21:24] VITALS: RESP 20; O2SAT 98
[2021-12-28] MEDS: ondansetron 2 mg/ML SDV 2 mL 4 MG IVP (21:25)
[2021-12-28] MEDS: HYDROmorphone 1 mg/mL INJ 1 mL 0.5 MG IVP (21:25)
[2021-12-28 21:31] LABS: Basophils % 0.5 %; Eosinophils # 0.1 10^3/uL (0.0-0.8); Eosinophils % 2.2 %; Hematocrit 33.4 % (37.0-47.0); Hemoglobin 10.7 g/dL (11.5-15.3); Lymphocytes # 1.6 10^3/uL (0.8-4.8); Lymphocytes % 27.3 %; Mean Corpuscular Hemoglobin 27.9 pg (28.0-34.0); Mean Corpuscular Volume 87.2 fl (81-99); Mean Platelet Volume 10.3 fL (7.4-10.4); Monocytes # 0.5 10^3/uL (0.2-0.9); Monocytes % 8.2 %; Neutrophils # 3.61 10^3/uL (1.8-7.7); Neutrophils % 61.5 %; Nucleated Red Blood Cells % 0 %; Platelet Count 287 10^3/cmm (130-400); Red Blood Count 3.83 10^6/uL (4.1-5.3); Red Cell Distribution Width 13.4 % (12.1-15.1); White Blood Count 5.9 10^3/uL (4.0-10.0)
[2021-12-28] MEDS: iohexol 350 mg/mL 100 mL Btl IV (21:39)
[2021-12-28 21:48] LABS: Alanine Aminotransferase 12 U/L (0-33); Albumin Level 4.1 g/dL (3.5-5.2); Alkaline Phosphatase 99 U/L (35-105); Aspartate Amino Transferase 15 U/L (0-32); Blood Urea Nitrogen 12 mg/dL (6-20); Calcium 9.5 mg/dL (8.5-10.5); Carbon Dioxide 27 mmol/L (22-29); Chloride 105 mmol/L (98-107); Creatinine Clr Calc Pharmacy 110.7832; Globulin 2.6 g/dL (1.3-4.6); Glomerular Filtration Rate 112.5 mL/min (90-130); Glucose 88 mg/dL (65-115); Lipase 33 U/L (13-60); Osmolality Calculated 291 mOsm/kg (285-295); Sodium 141 mmol/L (136-145); Total Bilirubin 0.2 mg/dL (0.15-1.2); Total Protein 6.7 g/dL (6.6-8.7)
[2021-12-28 21:49] VITALS: PULSE 64; RESP 18; O2SAT 100
[2021-12-28 21:53] LABS: Troponin(5th) Baseline 6 ng/L (0-10)
[2021-12-28 22:31] VITALS: RESP 19; O2SAT 100
--- NOTE | 2021-12-30 08:09 | DCPLANNER ---
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 I went ahead and scheduled appointment 01/01 @1:30 patient is aware of 100 payment and that she will need to speak to FA. Patient has a follow up appointment scheduled for , January 01, 2022 at 1:[address] Vieyra at general surgery. Clinic will call patient with appointment information. Original Note: grain operations manager had message to schedule a follow up appointment for patient with general surgery. grain operations manager sent patients information to the front office staff at general surgery. Patients information will be printed and reviewed. Clinic will call patient with appointment information.
== END 2021-12-28 22:33 | disposition home or self-care (01) ==
PROVIDERS: Emergency Medicine; Emergency Provider Emergency Medicine; PCP Nurse Practitioner Family
DX: R10.84 Generalized abdominal pain (principal)
CPT/HCPCS: 71045; 74177; 80053; 81003; 83690; 84484; 85025; 93005; 96374; 96375; 99285; J1170; J2405; Q9967

== ENCOUNTER 2022-01-30 23:47 | Emergency (ER) | payer SELFPAY ==
[2022-01-30 23:56] VITALS: BP 129/84; PULSE 70; RESP 20; TEMP 35.9; O2SAT 100
[2022-01-31 01:31] VITALS: BP 120/75; PULSE 66; RESP 16; O2SAT 100
--- NOTE | 2022-01-31 02:07 | W.ED.ABDPA2 ---
Documented by User: MAYTE Trevino 01/31/22 02:53 HPI - Abdominal Pain General: Chief Complaint: Abdominal Pain Stated Complaint: abd pain Time Seen by Provider: 01/31/22 00:58 History of Present Illness: Patient is in for right upper quadrant abdominal pain. She offers that it started a couple hours ago. She reports that it started suddenly and felt like a knife twisting in her right upper abdomen and epigastric region. She does offer that she has a history of GERD she does take medication for that. She reports that the medication works well. She reports that she has spaghetti tonight for dinner but that is not an issue for her if she takes her medication appropriately. It was shortly after having spaghetti; however, that she offers starting to feel this significant pain. She reports that she has vomited 5 times since being at the hospital. She denies stating that she has a tubal but she said there is always a chance. She denies fever or chills. She reports that she has had issues with her gallbladder in the past. She reports that she has been worked up for vague GI complaints. She does have upcoming scheduled endoscopy from her last visit. She denies any blood in her emesis. She denies diarrhea or constipation. Associated Symptoms: Reports nausea and vomiting; Denies chills and fever(s) Related Data: Date of Last Menstrual Period: 12/28/21 Review of Systems Const: Denies: fever(s) or chills Card: Denies: chest pain or palpitations Resp: Denies: dyspnea, productive cough or non-productive cough GI: Reports: abdominal pain, nausea and vomiting [facility] ED PFSH: Medical History (Updated 01/31/22 @ 04:18 by Carlos Valenzuela DO) Enlarged uterus High risk medication use Immunization counseling Inflammatory arthritis Liver hemangioma Positive NATALIE (antinuclear antibody) Seropositive rheumatoid arthritis Sjogrens syndrome Surgical History History of tubal ligation Family History Other Cancer Diabetes Hypertension Stroke Denies family history of Rheumatoid arthritis Lupus Social History Smoking and tobacco status: never smoked Alcohol intake: never Female Reproductive History: Date of last menstrual period: 12/28/21 Physical Exam Const: COMMON NORMALS: no acute distress, patient oriented x3 and alert Neck/C-Spine: COMMON NORMALS: no JVD Resp: COMMON NORMALS: normal respiratory effort, No use of accessory muscles and clear to auscultation bilaterally AUSCULTATION: clear to auscultation bilaterally Cardio: COMMON NORMALS: no JVD, regular rate, regular rhythm, S1 normal heart sound present, S2 normal heart sound present and No murmurs present (Cardio) RATE: regular rate RHYTHM: regular rhythm HEART SOUNDS: S1 normal heart sound present and S2 normal heart sound present GI: COMMON NORMALS: Normal to inspection, nondistended, normoactive bowel sounds present and Soft to palpation AUSCULTATION: Yes normoactive bowel sounds PALPATION: Yes Soft to palpation and Yes Tenderness to palpation present (GI) Details: RLQ, RUQ and other (Epigastric region) : COMMON NORMALS: Yes no CVA tenderness BLADDER/KIDNEY EXAM: Yes no CVA tenderness Back/Pelvis: COMMON NORMALS: no CVA tenderness Neuro: COMMON NORMALS: patient oriented x3 SENSORIUM/ORIENTATION: Yes alert Course Vital Signs: Vital signs: Vital Signs Temperature 96.6 F L 01/30/22 23:56 Pulse Rate 66 01/31/22 01:31 Respiratory Rate 16 01/31/22 01:31 Blood Pressure 120/75 01/31/22 01:31 Pulse Oximetry 100 01/31/22 01:31 Oxygen Delivery Me thod 01/31/22 01:31 MDM - Abdominal Pain Medical Decision Making Patient is in tonight for abdominal pain. She was seen at the end of December for similar complaints only it was left-sided upper abdomen and epigastric region. Patient did have a CAT scan done at that time which did not show any acute findings. Patient was referred to general surgery who has set the patient up for endoscopy. Patient's pain started suddenly tonight shortly after having eaten spaghetti for dinner. Labs done? Lab Data : 01/31/22 02:01 01/31/22 02:01 Labs/Radiology: Radiology Impressions Abdomen/Pelvis CT 01/31/22 02:13 IMPRESSION: 1. Interval development of mild to moderate gallbladder wall thickening/edema, no visible gallstones by CT. The findings could indicate cholecystitis, please correlate clinically. 2. Normal appendix. 3. No free air or bowel distention. 4. Probable cavernous hemangioma in the liver. Mild periportal edema, see above discussion. 5. Possible mild urinary bladder wall thickening, see above. 6. The right ovary contains a 12 mm mm dominant follicle versus very small cyst. Significance unlikely due to small size. Very small amount of cul-de-sac fluid. 7. Other findings discussed above. Laboratory Results WBC 12.5 10^3/uL (4.0-10.0) H 01/31/22 02:01 RBC 3.98 10^6/uL (4.1-5.3) L 01/31/22 02:01 Hgb 11.1 g/dL (11.5-15.3) L 01/31/22 02:01 Hct 34.1 % (37.0-47.0) L 01/31/22 02:01 MCV 85.7 fl (81-99) 01/31/22 02:01 MCH 27.9 pg (28.0-34.0) L 01/31/22 02:01 MCHC 32.6 g/dL (30.0-36.0) 01/31/22 02:01 RDW 12.8 % (12.1-15.1) 01/31/22 02:01 Plt Count 253 10^3/cmm (130-400) 01/31/22 02:01 MPV 10.1 fL (7.4-10.4) 01/31/22 02:01 Neut % (Auto) 89.1 % 01/31/22 02:01 Lymph % (Auto) 6.6 % 01/31/22 02:01 [place] % (Auto) 3.3 % 01/31/22 02:01 Eos % (Auto) 0.2 % 01/31/22 02:01 Baso % (Auto) 0.2 % 01/31/22 02:01 Neut # (Auto) 11.13 10^3/uL (1.8-7.7) H 01/31/22 02:01 Lymph # (Auto) 0.8 10^3/uL (0.8-4.8) 01/31/22 02:01 [place] # (Auto) 0.4 10^3/uL (0.2-0.9) 01/31/22 02:01 Eos # (Auto) 0.0 10^3/uL (0.0-0.8) 01/31/22 02:01 Baso # (Auto) 0.0 10^3/uL (0.0-0.1) 01/31/22 02:01 Nucleated RBC % (auto) 0 % 01/31/22 02:01 Nucleated RBCs # 0.0 /100WBC 01/31/22 02:01 Sodium 137 mmol/L (136-145) 01/31/22 02:01 Potassium 3.8 mmol/L (3.5-5.1) 01/31/22 02:01 Chloride 100 mmol/L (98-107) 01/31/22 02:01 Carbon Dioxide 27 mmol/L (22-29) 01/31/22 02:01 Anion Gap 13.8 (5-19) 01/31/22 02:01 BUN 9 mg/dL (6-20) 01/31/22 02:01 Creatinine 0.7 mg/dL (0.5-0.9) 01/31/22 02:01 GFR Calculation 94.2 mL/min (90-130) 01/31/22 02:01 Glucose 150 mg/dL (65-115) H 01/31/22 02:01 Calculated Osmolality 286 mOsm/kg (285-295) 01/31/22 02:01 Calcium 9.5 mg/dL (8.5-10.5) 01/31/22 02:01 Total Bilirubin 0.3 mg/dL (0.15-1.2) 01/31/22 02:01 AST 37 U/L (0-32) H 01/31/22 02:01 ALT 20 U/L (0-33) 01/31/22 02:01 Alkaline Phosphatase 113 U/L (35-105) H 01/31/22 02:01 Total Protein 7.3 g/dL (6.6-8.7) 01/31/22 02:01 Albumin 4.3 g/dL (3.5-5.2) 01/31/22 02:01 Globulin 3.0 g/dL (1.3-4.6) 01/31/22 02:01 Lipase 26 U/L (13-60) 01/31/22 02:01 Urine Color Yellow (Yellow) 01/31/22 02:01 Urine Appearance Cloudy (CLEAR) A 01/31/22 02:01 Urine pH 5 (5-7) 01/31/22 02:01 Ur Specific [place] 1.025 (1.005-1.030) 01/31/22 02:01 Urine Protein Neg (Negative) 01/31/22 02:01 Urine Glucose (UA) Norm (Normal) 01/31/22 02:01 Urine Ketones 1+ (Negative) H 01/31/22 02:01 Urine Blood Neg (Negative) 01/31/22 02:01 Urine Nitrate Negative (Negative) 01/31/22 02:01 Urine Bilirubin Neg (Negative) 01/31/22 02:01 Urine Urobilinogen Neg mg/dL (Negative) 01/31/22 02:01 Ur Leukocyte Esterase Negative (Negative) 01/31/22 02:01 Urine HCG, Qual Negative (Negative) 01/31/22 02:01 Discharge Plan Discharge Patient Disposition: Home Clinical Impression: Acalculous cholecystitis Condition: Stable Prescriptions: No Action acyclovir 400 mg tablet 400 mg PO BID mupirocin 2 % ointment 1 applic topical BID Qty: 15 0RF metronidazole 500 mg tablet 500 mg PO BID Qty: 14 0RF ondansetron HCl [Zofran] 4 mg tablet 4 mg PO Q6H PRN (Reason: nausea and vomiting) Qty: 20 0RF Vitamin D3 1,000 units 1,000 units PO DAILY hydrocodone-acetaminophen 5-325 mg tablet 1 tab PO Q6H PRN (Reason: pain) Qty: 14 0RF ondansetron 4 mg tablet,disintegrating 4 mg PO Q6H PRN (Reason: nausea and vomiting) Qty: 14 0RF clindamycin HCl 300 mg capsule 300 mg PO TID Qty: 12 0RF Discharge Orders: Discharge ED (Routine); Ordered 01/31/22 Ordered By: Carlos Valenzuela Referrals: Alejandro Vieyra MD [Physician] - 1-3 days Rosalind Graves FNP [Primary Care Provider] - Discharge Diet: Advance as tolerated and Clear Liquid Discharge Activity: Increase activity as tolerated Patient Instructions: Biliary Colic (ED), Opioid Safety, Pain Management Activity Restrictions/Additional Instructions: Return for fever greater than 100, vomiting liquids or medications, worsening pain despite treatment, yellowing of the eyes, any other concerning symptoms. Follow a liquid diet for the next 24 hours, then advance as tolerated. Call your surgeon on Wednesday morning, let them know you were seen here, and you had swelling related to your gallbladder on imaging studies. They will wish to see you in follow-up. Coding Level of Care Code ED Supervisor Advice for Chg Fwd Exam Detailed Documented by User: Carlos Valenzuela DO 01/31/22 04:20 HPI - Abdominal Pain General: Chief Complaint: Abdominal Pain Stated Complaint: abd pain Time Seen by Provider: 01/31/22 00:58 PFS ED PFSH: Medical History (Updated 01/31/22 @ 04:18 by Carlos Valenzuela DO) Enlarged uterus High risk medication use Immunization counseling Inflammatory arthritis Liver hemangioma Positive NATALIE (antinuclear antibody) Seropositive rheumatoid arthritis Sjogrens syndrome Surgical History History of tubal ligation Family History Other Cancer Diabetes Hypertension Stroke Denies family history of Rheumatoid arthritis Lupus Social History Smoking and tobacco status: never smoked Alcohol intake: never Course Vital Signs: Vital signs: Vital Signs Temperature 96.6 F L 01/30/22 23:56 Pulse Rate 66 01/31/22 01:31 Respiratory Rate 16 01/31/22 01:31 Blood Pressure 120/75 01/31/22 01:31 Pulse Oximetry 100 01/31/22 01:31 Oxygen Delivery Me thod 01/31/22 01:31 MDM - Abdominal Pain Medical Decision Making Patient is in tonight for abdominal pain. She was seen at the end of December for similar complaints only it was left-sided upper abdomen and epigastric region. Patient did have a CAT scan done at that time which did not show any acute findings. Patient was referred to general surgery who has set the patient up for endoscopy. Patient's pain started suddenly tonight shortly after having eaten spaghetti for dinner. Labs done? This patient was originally seen by LETITIA Aguilar.? I agree with her history, evaluation, and treatment. White blood cell count is 12.5. Hemoglobin is 11. BMP is not remarkable. Alk phos is 113. Liver enzymes are not significantly elevated. hCG is negative. Urinalysis is negative. CT of the abdomen pelvis shows interval development of mild to moderate gallbladder wall thickening and edema. No visible gallstones. This is indicative of cholecystitis. The patient is afebrile. Her symptoms are much improved. Liver enzymes are normal. With improvement in her symptoms, we will allow her home, to follow-up with her surgeon this week. She knows to return for fever, vomiting liquids, return of pain, other concerns. Lab Data : 01/31/22 02:01 01/31/22 02:01 Labs/Radiology: Radiology Impressions Abdomen/Pelvis CT 01/31/22 02:13
[2022-01-31] MEDS: ondansetron 2 mg/ML SDV 2 mL 4 MG IVP (02:09)
[2022-01-31 02:11] LABS: Basophils % 0.2 %; Eosinophils % 0.2 %; Hematocrit 34.1 % (37.0-47.0); Hemoglobin 11.1 g/dL (11.5-15.3); Lymphocytes # 0.8 10^3/uL (0.8-4.8); Lymphocytes % 6.6 %; Mean Corpuscular HGB Conc 32.6 g/dL (30.0-36.0); Mean Corpuscular Hemoglobin 27.9 pg (28.0-34.0); Mean Corpuscular Volume 85.7 fl (81-99); Mean Platelet Volume 10.1 fL (7.4-10.4); Monocytes # 0.4 10^3/uL (0.2-0.9); Monocytes % 3.3 %; Neutrophils # 11.13 10^3/uL (1.8-7.7); Neutrophils % 89.1 %; Nucleated Red Blood Cells % 0 %; Platelet Count 253 10^3/cmm (130-400); Red Blood Count 3.98 10^6/uL (4.1-5.3); Red Cell Distribution Width 12.8 % (12.1-15.1); White Blood Count 12.5 10^3/uL (4.0-10.0)
[2022-01-31] MEDS: sodium chloride 0.9% 1,000 ML 999 ML IV (02:13)
--- NOTE | 2022-01-31 02:13 | CTR_ITS ---
PROCEDURE INFORMATION: Exam: CT Abdomen And Pelvis With Contrast Exam date and time: 01/31/2022 2:28 AM Age: 36 years old Clinical indication: Abdominal pain; Localized; Right upper quadrant (ruq); Additional info: Right side abd pain with elevated wbc, ruq and rlq abd pain. Worse ruq TECHNIQUE: Imaging protocol: Computed tomography of the abdomen and pelvis with contrast. Radiation optimization: All CT scans at this facility use at least one of these dose optimization techniques: automated exposure control; mA and/or kV adjustment per patient size (includes targeted exams where dose is matched to clinical indication); or iterative reconstruction. Contrast material: OMNI 350; Contrast volume: 100 ml; Contrast route: INTRAVENOUS (IV); COMPARISON: CT abdomen pelvis w con* [id number] 12/28/2021 9:30 PM RADIATION DOSE METRICS: Total DLP (mGy-cm): 363.2 FINDINGS: Lungs: The lung bases are clear. Liver: There is mild fatty infiltration of the liver. 27 x 25 mm low-attenuation lesion with some peripheral/nodular enhancement in the inferior tip of the lobe of the right lobe of the liver, unchanged. This is a typical CT appearance for a cavernous hemangioma. If there is clinical concern for other liver mass, MRI could be more specific. There are again several smaller subcentimeter low attenuation areas in the liver. These are nonspecific, but are statistically most likely small cysts or cavernous hemangiomas. There is mild periportal edema in the liver. This is a nonspecific finding, that can be seen in hepatitis and other hepatic abnormalities. It can also be a nonsignificant finding, sometimes seen in overhydration. Please correlate clinically. Gallbladder and bile ducts: There is mild to moderate gallbladder wall thickening/edema, a new finding in the interval. The gallbladder is upper normal in size, transverse diameter up to 3.7 cm. No visible gallstones by CT. Ultrasound would be more sensitive for detecting gallstones, if clinically needed. The overall appearance is not specific, but raises suspicion for cholecystitis. Please correlate clinically. No biliary tree dilation. Pancreas: Unremarkable. Spleen: Unremarkable. Adrenal glands: Unremarkable. Kidneys and ureters: No hydronephrosis of either kidney. No visible ureteral calculus. 16 mm likely benign cyst in the upper left kidney, unchanged. The kidneys otherwise enhance homogeneously. No perinephric fluid. Stomach and bowel: No significant bowel distention. There are no CT findings to strongly suggest diverticulitis. Appendix: The appendix is visualized and appears normal. Intraperitoneal space: No free intraperitoneal air, or generalized ascites. Vasculature: No evidence for abdominal aortic aneurysm. Lymph nodes: No retroperitoneal adenopathy. Urinary bladder: Possibly some mild diffuse urinary bladder wall thickening. Evaluation is somewhat limited, as the bladder is not well distended. While nonspecific, this could indicate evidence for cystitis. Please correlate clinically. Reproductive: The right ovary contains a 12 mm dominant follicle versus very small cyst. Significance unlikely due to small size. Very small amount of cul-de-sac fluid. Bones/joints: No significant acute finding. Soft tissues: No significant acute finding. CT/CT abdomen pelvis w con* [id number] IMPRESSION: 1. Interval development of mild to moderate gallbladder wall thickening/edema, no visible gallstones by CT. The findings could indicate cholecystitis, please correlate clinically. 2. Normal appendix. 3. No free air or bowel distention. 4. Probable cavernous hemangioma in the liver. Mild periportal edema, see above discussion. 5. Possible mild urinary bladder wall thickening, see above. 6. The right ovary contains a 12 mm mm dominant follicle versus very small cyst. Significance unlikely due to small size. Very small amount of cul-de-sac fluid. 7. Other findings discussed above.
[2022-01-31] MEDS: iohexol 350 mg/mL 100 mL Btl IV (02:32)
[2022-01-31 02:33] LABS: Alanine Aminotransferase 20 U/L (0-33); Albumin Level 4.3 g/dL (3.5-5.2); Alkaline Phosphatase 113 U/L (35-105); Anion Gap 13.8 (5-19); Aspartate Amino Transferase 37 U/L (0-32); Blood Urea Nitrogen 9 mg/dL (6-20); Calcium 9.5 mg/dL (8.5-10.5); Carbon Dioxide 27 mmol/L (22-29); Chloride 100 mmol/L (98-107); Creatinine Clr Calc Pharmacy 92.4354; Glomerular Filtration Rate 94.2 mL/min (90-130); Glucose 150 mg/dL (65-115); Lipase 26 U/L (13-60); Osmolality Calculated 286 mOsm/kg (285-295); Potassium 3.8 mmol/L (3.5-5.1); Sodium 137 mmol/L (136-145); Total Bilirubin 0.3 mg/dL (0.15-1.2); Total Protein 7.3 g/dL (6.6-8.7)
[2022-01-31 03:37] LABS: Add Urine Microscopic? NO; Charge for UA Resulting for Rev
[2022-01-31 03:40] LABS: Bilirubin Urine Neg (Negative); Blood Urine Neg (Negative); Glucose Urine UA Norm (Normal); Ketones Urine 1+ (Negative); Leukocyte Esterase Urine Negative (Negative); Nitrate Urine Negative (Negative); Protein Urine Neg (Negative); Specific Gravity, Urine 1.025 (1.005-1.030); Urine Appearance Cloudy (CLEAR); Urine Color Yellow (Yellow); Urobilinogen Urine Neg (Negative); pH Urine 5 (5-7)
[2022-01-31 04:32] VITALS: BP 112/71; PULSE 67; RESP 15; O2SAT 99
== END 2022-01-31 04:34 | disposition home or self-care (01) ==
PROVIDERS: Nurse Practitioner Family; Emergency Provider Emergency Medicine; PCP Nurse Practitioner Family
DX: K81.9 Cholecystitis, unspecified (principal)
CPT/HCPCS: 74177; 80053; 81003; 81025; 83690; 85025; 96374; 99285; J2405; J7030; Q9967

== ENCOUNTER 2022-03-26 04:26 | Emergency (ER) | payer SELFPAY ==
--- NOTE | 2022-03-26 04:30 | USR_ITS ---
PROCEDURE INFORMATION: Exam: US Abdomen, Limited; Right Upper Quadrant Exam date and time: 03/26/2022 4:49 AM Age: 37 years old Clinical indication: Abdominal pain; Acute; Patient HX: Known stones gb; Additional info: Ruq pain TECHNIQUE: Imaging protocol: Real time ultrasound of the abdomen with image documentation. Limited exam focused on the right upper quadrant. COMPARISON: US abdomen limited [id number] 02/20/2019 2:25 PM FINDINGS: Liver: Again seen is a 2.8 cm hemangioma in the tip of the liver. Gallbladder: There are multiple stones in the gallbladder with wall thickening up to 3.0 mm which is the upper limit of normal, consistent with mild or early cholecystitis. Biliary ducts: Normal. No stones. No dilation. Pancreas: Visualized pancreas is unremarkable. Right kidney: Normal. No mass. No hydronephrosis. US/US gall bladder [id number] IMPRESSION: Gallstones with mild cholecystitis. Stable hemangioma in the tip of the liver.
--- NOTE | 2022-03-26 04:34 | W.ED.ABDPA2 ---
HPI - Abdominal Pain General: Chief Complaint: Abdominal Pain Stated Complaint: Possible Gall bladder attack Time Seen by Provider: 03/26/22 04:27 Source: patient Mode of arrival: ambulatory Limitations: no limitations History of Present Illness: 29-year-old female states she woke up at midnight having right upper quadrant pain with vomiting states her pain improved then worsened again states that is currently actually a 2 out of 10 she still has some nausea states he vomited multiple times throughout the night. She states she has had issues with her gallbladder in the past states she is post to have her gallbladder out but has not been able to due to insurance reasons. Associated Symptoms: Reports nausea and vomiting; Denies chills, dysuria and fever(s) Related Data: Date of Last Menstrual Period: 12/28/21 Review of Systems Const: Denies: fever(s), chills, body aches or change in appetite Eyes: Denies: blurry vision or eye discomfort ENMT: Denies: throat pain or dental pain Card: Denies: chest pain Resp: Denies: dyspnea GI: Reports: abdominal pain, nausea and vomiting : Denies: dysuria Musc: Denies: neck pain or back pain Skin/Breast: Denies: rash Neuro: Denies: headache(s) Psych: Denies: depression [place]/Lymph: Denies: easy bruising All/Imm: Denies: urticaria PFSH ED PFSH: Medical History (Updated 03/26/22 @ 05:16 by Roma Judd MD) Enlarged uterus High risk medication use Immunization counseling Inflammatory arthritis Liver hemangioma Positive NATALIE (antinuclear antibody) Seropositive rheumatoid arthritis Sjogrens syndrome Surgical History History of tubal ligation Family History Other Cancer Diabetes Hypertension Stroke Denies family history of Rheumatoid arthritis Lupus Social History Smoking and tobacco status: never smoked Alcohol intake: never Female Reproductive History: Date of last menstrual period: 12/28/21 Physical Exam Const: COMMON NORMALS: no acute distress, patient oriented x3 and healthy appearing HENMT: COMMON NORMALS: normocephalic and atraumatic HEAD & SCALP: normocephalic and atraumatic Eye: COMMON NORMALS: Equal, round and reactive pupils present and EOMs intact bilaterally PUPIL: Yes Equal, round and reactive pupils present Neck/C-Spine: COMMON NORMALS: full ROM and supple Chest: COMMONS NORMALS: normal inspection of the chest and normal palpation of entire chest wall Resp: COMMON NORMALS: normal respiratory effort, No retractions, No use of accessory muscles and clear to auscultation bilaterally AUSCULTATION: clear to auscultation bilaterally Cardio: COMMON NORMALS: regular rate, regular rhythm and No murmurs present (Cardio) RATE: regular rate RHYTHM: regular rhythm GI: COMMON NORMALS: Normal to inspection, nondistended, normoactive bowel sounds present, Soft to palpation and no masses PALPATION: Yes Soft to palpation and Yes Tenderness to palpation present (GI) Details: RUQ Extremity: COMMON NORMALS: normal to inspection and full ROM Neuro: COMMON NORMALS: patient oriented x3, moves all extremities and no focal motor deficits Psych: COMMON NORMALS: mental status grossly normal, Normal thought process present and cooperative THOUGHT PROCESS: Normal thought process present Skin: COMMON NORMALS: no rashes or lesions noted and no wounds GENERAL SKIN EXAM: no rashes or lesions noted Course Vital Signs: Vital signs: Vital Signs Temperature 97.6 F 03/26/22 04:35 Pulse Rate 75 03/26/22 04:49 Respiratory Rate 16 03/26/22 04:49 Blood Pressure 139/88 03/26/22 04:49 Pulse Oximetry 98 03/26/22 04:49 Oxygen Delivery Me thod 03/26/22 04:35 MDM - Abdominal Pain Medical Decision Making Patient presents here with cholelithiasis causing biliary colic her pain is improved here ultrasound does show cholelithiasis no signs cholecystitis we will prescribe pain meds she is to follow-up with surgery she is return if worsening. Lab Data 03/26/22 04:36 03/26/22 04:36 Labs/Radiology: Laboratory Results WBC 7.1 10^3/uL (4.0-10.0) 03/26/22 04:36 RBC 4.48 10^6/uL (4.1-5.3) 03/26/22 04:36 Hgb 12.2 g/dL (11.5-15.3) 03/26/22 04:36 Hct 38.7 % (37.0-47.0) 03/26/22 04:36 MCV 86.4 fl (81-99) 03/26/22 04:36 MCH 27.2 pg (28.0-34.0) L 03/26/22 04:36 MCHC 31.5 g/dL (30.0-36.0) 03/26/22 04:36 RDW 13.5 % (12.1-15.1) 03/26/22 04:36 Plt Count 329 10^3/cmm (130-400) 03/26/22 04:36 MPV 10.1 fL (7.4-10.4) 03/26/22 04:36 Neut % (Auto) 68.6 % 03/26/22 04:36 Lymph % (Auto) 22.8 % 03/26/22 04:36 [place] % (Auto) 7.6 % 03/26/22 04:36 Eos % (Auto) 0.3 % 03/26/22 04:36 Baso % (Auto) 0.4 % 03/26/22 04:36 Neut # (Auto) 4.87 10^3/uL (1.8-7.7) 03/26/22 04:36 Lymph # (Auto) 1.6 10^3/uL (0.8-4.8) 03/26/22 04:36 [place] # (Auto) 0.5 10^3/uL (0.2-0.9) 03/26/22 04:36 Eos # (Auto) 0.0 10^3/uL (0.0-0.8) 03/26/22 04:36 Baso # (Auto) 0.0 10^3/uL (0.0-0.1) 03/26/22 04:36 Nucleated RBC % (auto) 0 % 03/26/22 04:36 Nucleated RBCs # 0.0 /100WBC 03/26/22 04:36 Sodium 135 mmol/L (136-145) L 03/26/22 04:36 Potassium 4.4 mmol/L (3.5-5.1) 03/26/22 04:36 Chloride 100 mmol/L (98-107) 03/26/22 04:36 Carbon Dioxide 26 mmol/L (22-29) 03/26/22 04:36 Anion Gap 13.4 (5-19) 03/26/22 04:36 BUN 10 mg/dL (6-20) 03/26/22 04:36 Creatinine 0.7 mg/dL (0.5-0.9) 03/26/22 04:36 GFR Calculation 93.6 mL/min (90-130) 03/26/22 04:36 Glucose 120 mg/dL (65-115) H 03/26/22 04:36 Calculated Osmolality 280 mOsm/kg (285-295) L 03/26/22 04:36 Calcium 9.9 mg/dL (8.5-10.5) 03/26/22 04:36 Total Bilirubin 0.2 mg/dL (0.15-1.2) 03/26/22 04:36 AST 16 U/L (0-32) 03/26/22 04:36 ALT 12 U/L (0-33) 03/26/22 04:36 Alkaline Phosphatase 105 U/L (35-105) 03/26/22 04:36 Total Protein 7.7 g/dL (6.6-8.7) 03/26/22 04:36 Albumin 4.3 g/dL (3.5-5.2) 03/26/22 04:36 Globulin 3.4 g/dL (1.3-4.6) 03/26/22 04:36 Lipase 32 U/L (13-60) 03/26/22 04:36 Urine Color Yellow (Yellow) 03/26/22 04:40 Urine Appearance Clear (CLEAR) 03/26/22 04:40 Urine pH 7 (5-7) 03/26/22 04:40 Ur Specific [place] 1.015 (1.005-1.030) 03/26/22 04:40 Urine Protein Neg (Negative) 03/26/22 04:40 Urine Glucose (UA) Norm (Normal) 03/26/22 04:40 Urine Ketones Negative (Negative) 03/26/22 04:40 Urine Blood 2+ (Negative) H 03/26/22 04:40 Urine Nitrate Negative (Negative) 03/26/22 04:40 Urine Bilirubin Neg (Negative) 03/26/22 04:40 Urine Urobilinogen Norm mg/dL (Negative) 03/26/22 04:40 Ur Leukocyte Esterase Negative (Negative) 03/26/22 04:40 Urine RBC 5-10 /hpf (0-2) H 03/26/22 04:40 Urine WBC None /hpf (0-5) 03/26/22 04:40 Ur Squamous Epith Cells 5-10 /hpf (0-5) H 03/26/22 04:40 Amorphous Sediment Not Reportable 03/26/22 04:40 Urine Bacteria Trace /hpf (NONE) 03/26/22 04:40 Discharge Plan Discharge Patient Disposition: Home Clinical Impression: Cholelithiasis, Biliary colic Condition: Stable Prescriptions: New hydrocodone-acetaminophen 5-325 mg tablet 1 tab PO Q6H PRN (Reason: pain) Qty: 14 0RF ondansetron 4 mg tablet,disintegrating 4 mg PO Q6H PRN (Reason: nausea and vomiting) Qty: 14 0RF No Action acyclovir 400 mg tablet 400 mg PO BID mupirocin 2 % ointment 1 applic topical BID Qty: 15 0RF metronidazole 500 mg tablet 500 mg PO BID Qty: 14 0RF ondansetron HCl [Zofran] 4 mg tablet 4 mg PO Q6H PRN (Reason: nausea and vomiting) Qty: 20 0RF Vitamin D3 1,000 units 1,000 units PO DAILY hydrocodone-acetaminophen 5-325 mg tablet 1 tab PO Q6H PRN (Reason: pain) Qty: 14 0RF ondansetron 4 mg tablet,disintegrating 4 mg PO Q6H PRN (Reason: nausea and vomiting) Qty: 14 0RF clindamycin HCl 300 mg capsule 300 mg PO TID Qty: 12 0RF Discharge Orders: Discharge ED (Routine); Ordered 03/26/22 Ordered By: Roma Judd Referrals: Alejandro Vieyra MD [Physician] - 1-3 days Rosalind Graves FNP [Primary Care Provider] - Discharge Diet: Advance as tolerated Discharge Activity: Resume usual activity Patient Instructions: Abdominal Pain (ED), Opioid Safety Coding Level of Care Code ED Physician Non Invasive Cardiologist for 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
[2022-03-26 04:35] VITALS: BP 141/95; PULSE 73; RESP 16; TEMP 36.4; O2SAT 99; BMI 22.1
[2022-03-26 04:46] VITALS: RESP 16; O2SAT 98
[2022-03-26] MEDS: morphine 4 mg/mL SDV 1 mL IVP (04:46)
[2022-03-26] MEDS: ondansetron 2 mg/ML SDV 2 mL 4 MG IVP (04:46)
[2022-03-26] MEDS: sodium chloride 0.9% 1,000 ML 999 ML IV (04:47)
[2022-03-26 04:49] VITALS: BP 139/88; PULSE 75; RESP 16; O2SAT 98
[2022-03-26 04:49] LABS: Basophils % 0.4 %; Eosinophils % 0.3 %; Hematocrit 38.7 % (37.0-47.0); Hemoglobin 12.2 g/dL (11.5-15.3); Lymphocytes # 1.6 10^3/uL (0.8-4.8); Lymphocytes % 22.8 %; Mean Corpuscular HGB Conc 31.5 g/dL (30.0-36.0); Mean Corpuscular Hemoglobin 27.2 pg (28.0-34.0); Mean Corpuscular Volume 86.4 fl (81-99); Mean Platelet Volume 10.1 fL (7.4-10.4); Monocytes # 0.5 10^3/uL (0.2-0.9); Monocytes % 7.6 %; Neutrophils # 4.87 10^3/uL (1.8-7.7); Neutrophils % 68.6 %; Nucleated Red Blood Cells % 0 %; Platelet Count 329 10^3/cmm (130-400); Red Blood Count 4.48 10^6/uL (4.1-5.3); Red Cell Distribution Width 13.5 % (12.1-15.1); White Blood Count 7.1 10^3/uL (4.0-10.0)
[2022-03-26 05:11] LABS: Add Urine Microscopic? YES; Bacteria Urine TRACE /hpf; Bilirubin Urine Neg (Negative); Blood Urine 2+ (Negative); Glucose Urine UA Norm (Normal); Ketones Urine Negative (Negative); Leukocyte Esterase Urine Negative (Negative); Nitrate Urine Negative (Negative); Protein Urine Neg (Negative); Specific Gravity, Urine 1.015 (1.005-1.030); Urine Appearance Clear (CLEAR); Urine Color Yellow (Yellow); Urobilinogen Urine Norm (Negative); pH Urine 7 (5-7)
[2022-03-26 05:12] LABS: Add Urine Culture? No
[2022-03-26 05:17] LABS: Alanine Aminotransferase 12 U/L (0-33); Albumin Level 4.3 g/dL (3.5-5.2); Alkaline Phosphatase 105 U/L (35-105); Anion Gap 13.4 (5-19); Aspartate Amino Transferase 16 U/L (0-32); Blood Urea Nitrogen 10 mg/dL (6-20); Calcium 9.9 mg/dL (8.5-10.5); Carbon Dioxide 26 mmol/L (22-29); Chloride 100 mmol/L (98-107); Creatinine Clr Calc Pharmacy 93.0986; Globulin 3.4 g/dL (1.3-4.6); Glomerular Filtration Rate 93.6 mL/min (90-130); Glucose 120 mg/dL (65-115); Lipase 32 U/L (13-60); Osmolality Calculated 280 mOsm/kg (285-295); Potassium 4.4 mmol/L (3.5-5.1); Sodium 135 mmol/L (136-145); Total Bilirubin 0.2 mg/dL (0.15-1.2); Total Protein 7.7 g/dL (6.6-8.7)
--- NOTE | 2022-03-26 09:08 | DCPLANNER ---
Addendum entered by Arianna Cason 04/08/22 15:19: corporate quality manager received the following message from the general surgery clinic regarding follow up appointment: Spoke with patient, she is wanting to wait to move forward with anything until she is approved for FA or her insurance kicks in.. Gave her FA number and mailed her a FA packet Original Note: corporate quality manager had message to schedule a follow up appointment for patient with general surgery. corporate quality manager sent patients information to the front office staff at general surgery. Patients information will be printed and reviewed. Clinic will call patient with appointment information.
== END 2022-03-26 05:36 | disposition home or self-care (01) ==
PROVIDERS: Emergency Provider Emergency Medicine; PCP Nurse Practitioner Family
DX: K80.20 Calculus of gallbladder without cholecystitis without obstruction (principal)
CPT/HCPCS: 76705; 80053; 81001; 83690; 85025; 96361; 96374; 96375; 99285; J2270; J2405; J7030

== ENCOUNTER 2022-07-18 09:19 | Emergency (ER) | payer BC, MEDICAID, SELFPAY ==
[2022-07-18 09:28] VITALS: BP 160/113; PULSE 92; TEMP 37; O2SAT 100; BMI 26.4
[2022-07-18] MEDS: ketorolac 30 mg/mL INJ IVP (09:51)
--- NOTE | 2022-07-18 09:51 | ED_ITS ---
HPI - Abdominal Pain General: Chief Complaint: Abdominal Pain Stated Complaint: Abd pains Time Seen by Provider: 07/18/22 09:26 History of Present Illness: Patient presents to the ER with complaints of left-sided abdominal pain rating to the back, pain started 2 AM this morning, rates the pain an 8 out of 10. Does have a history of biliary colic with his usual on the right side. Patient first went to urgent care but they sent her directly over here for further evaluation and treatment. MD elicited complaint: abdominal pain Pertinent past history: none Onset (ago): hour(s) (Approximately 7 hours ago) Pain Consistency: constant and colicky Location: LUQ and LLQ Severity: moderate Quality: stabbing and aching Radiation: L flank Exacerbating factors: nothing Relieving factors: nothing Associated Symptoms: Reports nausea; Denies chills, diarrhea, dysuria, fever(s) and vomiting Review of Systems General: Reports: 10 or more systems reviewed and unremarkable except in HPI and below Const: Denies: fever(s) or chills Eyes: Denies: change in vision ENMT: Denies: throat pain or enlarged tonsils Card: Denies: chest pain or palpitations Resp: Denies: dyspnea, productive cough or non-productive cough GI: Reports: abdominal pain and nausea; Denies: vomiting or diarrhea : Reports: flank pain; Denies: difficulty voiding or dysuria Musc: Reports: back pain; Denies: neck pain Skin/Breast: Denies: rash or pruritus Neuro: Denies: headache(s) or numbness in extremities Psych: Denies: anxiety or depression Endo: Denies: polyuria, polydipsia or tired all the time [facility] ED PFSH: Medical History (Updated 07/18/22 @ 12:21 by Julio Cesar Jarrett DO) Enlarged uterus High risk medication use Immunization counseling Inflammatory arthritis Liver hemangioma Positive NATALIE (antinuclear antibody) Seropositive rheumatoid arthritis Sjogrens syndrome Surgical History History of tubal ligation Family History Other Cancer Diabetes Hypertension Stroke Denies family history of Rheumatoid arthritis Lupus Social History Smoking and tobacco status: never smoked Alcohol intake: never Physical Exam Const: COMMON NORMALS: average body habitus, no limitations, healthy appearing, alert and well nourished ORIENTATION/CONSCIOUSNESS: Yes oriented to person, Yes oriented to place and Yes oriented to time HENMT: COMMON NORMALS: normocephalic, atraumatic, hearing grossly normal denise aterally, external ears normal, Normal external nose present and moist oral mucous membranes HEAD & SCALP: normocephalic and atraumatic NOSE: Normal external nose present EXTERNAL EAR: Yes external ears normal Eye: COMMON NORMALS: Equal, round and reactive pupils present, EOMs intact bilaterally, conjunctivae normal and no scleral icterus CONJUNCTIVA: Yes conjunctivae normal PUPIL: Yes Equal, round and reactive pupils present Neck/C-Spine: COMMON NORMALS: full ROM, no lymphadenopathy, supple, no meningeal signs, no JVD and Thyroid normal THYROID: Thyroid normal Lymph: LYMPHATIC: no lymphadenopathy noted Chest: COMMONS NORMALS: normal inspection of the chest and normal palpation of entire chest wall Resp: COMMON NORMALS: normal respiratory effort, No retractions, No use of accessory muscles and clear to auscultation bilaterally AUSCULTATION: clear to auscultation bilaterally Cardio: COMMON NORMALS: no JVD, regular rate, regular rhythm, S1 normal heart sound present, S2 normal heart sound present, No gallops present (Cardio), No clicks present (Cardio) and No murmurs present (Cardio) RATE: regular rate RHYTHM: regular rhythm HEART SOUNDS: S1 normal heart sound present and S2 normal heart sound present GI: COMMON NORMALS: Soft to palpation and No hepatosplenomegaly present INSPECTION: Yes normal to inspection PALPATION: Yes Soft to palpation, Yes Tenderness to palpation present (GI) Details: LUQ and Yes No hepatosplenomegaly present : OTHER: Left costovertebral angle/flank pain with palpation Back/Pelvis: COMMON NORMALS: thoracic and lumbar spine normal to inspection and no thoracic nor lumbar tenderness Neuro: SENSORIUM/ORIENTATION: Yes alert, Yes oriented to person, Yes oriented to place and Yes oriented to time MENINGEAL SIGNS: Yes no meningeal signs Psych: COMMON NORMALS: mental status grossly normal, Normal thought process present, cooperative, normal affect, speech normal and activity/motor behavior normal SPEECH: Yes normal speech THOUGHT PROCESS: Normal thought process present Course Vital Signs: Vital signs: Vital Signs Temperature 98.6 F 07/18/22 09:28 Pulse Rate 71 07/18/22 11:48 Blood Pressure 112/81 07/18/22 11:48 Pulse Oximetry 98 07/18/22 11:48 Oxygen Delivery Me thod Room Air 07/18/22 10:56 MDM - Abdominal Pain Medical Decision Making Patient presents to the ER with left-sided abdominal pain rating to the back, started 2 AM this morning, currently rates it an 8 out of 10, patient has not taken any pain medicine at this time. And denies any other symptoms. Physical exam showed patient did appear to be tender of the left upper quadrant and the left flank region. Patient did appear to be in mild distress secondary to pain. Patient was given Toradol and Norflex IV as well as labs were obtained. Labs showed patient has a normal white count of 6.2 metabolic panel was normal and urine was normal except for 1+ ketones trace blood. CT scan of abdomen pelvis without contrast was obtained which showed cholelithiasis with no evidence of cholecystitis otherwise benign findings that would not explain the patient's pain. It was noted patient has had multiple CT scans of the abdomen pelvis for abdominal pain. These findings was discussed with the patient who understood and says she may have just pulled a muscle. Patient will be discharged home to take [id number] pain medicine and follow-up with her PCP within the next week. Differential Diagnosis Likely abdominal pain and calculus of kidney; Unlikely acute appendicitis, constipation or diverticulitis Medical Records I reviewed the patient's medical records. Lab Data I reviewed the patient's lab results. 07/18/22 09:43 07/18/22 09:43 Labs/Radiology: Radiology Impressions Abdomen/Pelvis CT 07/18/22 09:58 IMPRESSION: 1. Surgical clip in the right adnexal region likely related to sterilization procedure. Migrated surgical clip in the left abdomen adjacent to the descending colon, similar to prior exams, likely previously in the left adnexal region. 2. Cholelithiasis without evidence of acute cholecystitis. 3. No renal or ureteral stones. No perinephric or periureteral fat stranding. No signs of urinary obstruction. COMMENTS: Evaluation of solid organs and vascular structures is limited as no IV contrast was administered. Laboratory Results WBC 6.2 10^3/uL (4.0-10.0) 07/18/22 09:43 RBC 4.26 10^6/uL (4.1-5.3) 07/18/22 09:43 Hgb 11.8 g/dL (11.5-15.3) 07/18/22 09:43 Hct 36.3 % (37.0-47.0) L 07/18/22 09:43 MCV 85.2 fl (81-99) 07/18/22 09:43 MCH 27.7 pg (28.0-34.0) L 07/18/22 09:43 MCHC 32.5 g/dL (30.0-36.0) 07/18/22 09:43 RDW 13.8 % (12.1-15.1) 07/18/22 09:43 Plt Count 278 10^3/cmm (130-400) 07/18/22 09:43 MPV 10.1 fL (7.4-10.4) 07/18/22 09:43 Neut % (Auto) 55.6 % 07/18/22 09:43 Lymph % (Auto) 33.0 % 07/18/22 09:43 [place] % (Auto) 9.3 % 07/18/22 09:43 Eos % (Auto) 1.3 % 07/18/22 09:43 Baso % (Auto) 0.6 % 07/18/22 09:43 Neut # (Auto) 3.46 10^3/uL (1.8-7.7) 07/18/22 09:43 Lymph # (Auto) 2.1 10^3/uL (0.8-4.8) 07/18/22 09:43 [place] # (Auto) 0.6 10^3/uL (0.2-0.9) 07/18/22 09:43 Eos # (Auto) 0.1 10^3/uL (0.0-0.8) 07/18/22 09:43 Baso # (Auto) 0.0 10^3/uL (0.0-0.1) 07/18/22 09:43 Nucleated RBC % (auto) 0 % 07/18/22 09:43 Nucleated RBCs # 0.0 /100WBC 07/18/22 09:43 Sodium 135 mmol/L (136-145) L 07/18/22 09:43 Potassium 3.5 mmol/L (3.5-5.1) 07/18/22 09:43 Chloride 99 mmol/L (98-107) 07/18/22 09:43 Carbon Dioxide 25 mmol/L (22-29) 07/18/22 09:43 Anion Gap 14.5 (5-19) 07/18/22 09:43 BUN 11 mg/dL (6-20) 07/18/22 09:43 Creatinine 0.7 mg/dL (0.5-0.9) 07/18/22 09:43 GFR Calculation 93.6 mL/min (90-130) 07/18/22 09:43 Glucose 82 mg/dL (65-115) 07/18/22 09:43 Calculated Osmolality 278 mOsm/kg (285-295) L 07/18/22 09:43 Calcium 10.2 mg/dL (8.5-10.5) 07/18/22 09:43 Total Bilirubin 0.2 mg/dL (0.15-1.2) 07/18/22 09:43 AST 16 U/L (0-32) 07/18/22 09:43 ALT 13 U/L (0-33) 07/18/22 09:43 Alkaline Phosphatase 84 U/L (35-105) 07/18/22 09:43 Total Protein 8.0 g/dL (6.6-8.7) 07/18/22 09:43 Albumin 4.5 g/dL (3.5-5.2) 07/18/22 09:43 Globulin 3.5 g/dL (1.3-4.6) 07/18/22 09:43 Lipase 30 U/L (13-60) 07/18/22 09:43 HCG, Qual Negative (Negative) 07/18/22 09:45 Urine Color Yellow (Yellow) 07/18/22 09:45 Urine Appearance Clear (CLEAR) 07/18/22 09:45 Urine pH 6 (5-7) 07/18/22 09:45 Ur Specific [place] 1.020 (1.005-1.030) 07/18/22 09:45 Urine Protein Neg (Negative) 07/18/22 09:45 Urine Glucose (UA) Norm (Normal) 07/18/22 09:45 Urine Ketones 1+ (Negative) H 07/18/22 09:45 Urine Blood Trace (Negative) H 07/18/22 09:45 Urine Nitrate Negative (Negative) 07/18/22 09:45 Urine Bilirubin Neg (Negative) 07/18/22 09:45 Urine Urobilinogen Norm mg/dL (Negative) 07/18/22 09:45 Ur Leukocyte Esterase Negative (Negative) 07/18/22 09:45 Urine RBC Rare /hpf (0-2) 07/18/22 09:45 Urine WBC 0-4 /hpf (0-5) H 07/18/22 09:45 Ur Squamous Epith Cells 0-4 /hpf (0-5) H 07/18/22 09:45 Amorphous Sediment Not Reportable 07/18/22 09:45 Urine Bacteria Trace /hpf (NONE) 07/18/22 09:45 Discharge Plan Discharge Patient Disposition: Home Clinical Impression: Left flank tenderness, Abdominal pain Condition: Stable Prescriptions: No Action acyclovir 400 mg tablet 400 mg PO BID PRN (Reason: unknown) hydrocodone-acetaminophen 5-325 mg tablet 1 tab PO Q6H PRN (Reason: pain) Qty: 14 0RF Excedrin Extra Strength 250-250-65 mg Tablet 1 tab PO Q6H PRN (Reason: Pain) Discharge Orders: Discharge ED (Routine); Ordered 07/18/22 Ordered By: Julio Cesar Jarrett Referrals: Rosalind Graves FNP [Primary Care Provider] - 1 week Discharge Activity: Increase activity as tolerated Patient Instructions: Abdominal Pain (ED), Pain Management Coding Level of Care Code ED Special Education Inclusion Teacher for Kaelyn Vasquez
[2022-07-18 09:52] LABS: Basophils % 0.6 %; Eosinophils # 0.1 10^3/uL (0.0-0.8); Eosinophils % 1.3 %; Hematocrit 36.3 % (37.0-47.0); Hemoglobin 11.8 g/dL (11.5-15.3); Lymphocytes # 2.1 10^3/uL (0.8-4.8); Mean Corpuscular HGB Conc 32.5 g/dL (30.0-36.0); Mean Corpuscular Hemoglobin 27.7 pg (28.0-34.0); Mean Corpuscular Volume 85.2 fl (81-99); Mean Platelet Volume 10.1 fL (7.4-10.4); Monocytes # 0.6 10^3/uL (0.2-0.9); Monocytes % 9.3 %; Neutrophils # 3.46 10^3/uL (1.8-7.7); Neutrophils % 55.6 %; Nucleated Red Blood Cells % 0 %; Platelet Count 278 10^3/cmm (130-400); Red Blood Count 4.26 10^6/uL (4.1-5.3); Red Cell Distribution Width 13.8 % (12.1-15.1); White Blood Count 6.2 10^3/uL (4.0-10.0)
[2022-07-18] MEDS: sodium chloride 0.9% 1,000 ML 999 ML IV (09:52)
[2022-07-18] MEDS: ondansetron 2 mg/ML SDV 2 mL 4 MG IVP (09:52)
[2022-07-18 09:57] LABS: HCG Qualitative Urine. Negative (Negative)
--- NOTE | 2022-07-18 09:58 | CTR_ITS ---
PROCEDURE INFORMATION: Exam: CT Abdomen And Pelvis Without Contrast Exam date and time: 07/18/2022 10:29 AM Age: 37 years old Clinical indication: Abdominal pain; Localized; Left; Prior surgery; Surgery date: 6+ months; Surgery type: Tubal; Additional info: Luq/l flank pain TECHNIQUE: Imaging protocol: Computed tomography of the abdomen and pelvis without contrast. Radiation optimization: All CT scans at this facility use at least one of these dose optimization techniques: automated exposure control; mA and/or kV adjustment per patient size (includes targeted exams where dose is matched to clinical indication); or iterative reconstruction. REPORTING DATA: Count of CT and Cardiac NM exams in prior 12 months: This patient has received 3 known CTs and 0 known cardiac nuclear medicine studies in the 12 months prior to the current study. COMPARISON: 1. CT abdomen pelvis w con* [id number] 01/31/2022 2:[address] abdomen pelvis w con* [id number] 12/28/2021 9:[address] abdomen pelvis w con* [id number] 07/16/2019 9:39 PM RADIATION DOSE METRICS: Total DLP (mGy-cm): 401.27 FINDINGS: Liver: Persistent 3.0 cm mass in hepatic segment 6 along the lower right hepatic margin again noted. Gallbladder and bile ducts: Dense layering material in the dependent portion of the gallbladder lumen may be consistent with poorly calcified gallstones versus sludge. No gallbladder wall thickening, pericholecystic fluid or fat stranding identified. Pancreas: The pancreas appears normal. Spleen: The spleen appears normal. Adrenal glands: The adrenals appear normal. Kidneys and ureters: No renal or ureteral stones. No perinephric or periureteral fat stranding. No signs of urinary obstruction. Stomach and bowel: The stomach appears unremarkable. The small bowel loops are not abnormally dilated. The large bowel loops are not abnormally dilated. Appendix: The appendix appears normal. Intraperitoneal space: No ascites or significant fluid collection. Vasculature: The aorta is nonaneurysmal. The IVC appears normal. Lymph nodes: There are no enlarged lymph nodes. Urinary bladder: The bladder is distended and demonstrates no focal contour abnormality. Reproductive: Surgical clip in the right adnexal region likely related to sterilization procedure. Migrated surgical clip in the left abdomen adjacent to the descending colon, similar to prior exams, likely previously in the left adnexal region. Bones/joints: Unremarkable. Soft tissues: Unremarkable. CT/CT abdomen pelvis wo con [id number] IMPRESSION: 1. Surgical clip in the right adnexal region likely related to sterilization procedure. Migrated surgical clip in the left abdomen adjacent to the descending colon, similar to prior exams, likely previously in the left adnexal region. 2. Cholelithiasis without evidence of acute cholecystitis. 3. No renal or ureteral stones. No perinephric or periureteral fat stranding. No signs of urinary obstruction. COMMENTS: Evaluation of solid organs and vascular structures is limited as no IV contrast was administered.
[2022-07-18 09:59] VITALS: BP 132/93; PULSE 78; O2SAT 100
[2022-07-18 10:07] LABS: Add Urine Microscopic? YES; Bilirubin Urine Neg (Negative); Blood Urine Trace (Negative); Glucose Urine UA Norm (Normal); Ketones Urine 1+ (Negative); Leukocyte Esterase Urine Negative (Negative); Nitrate Urine Negative (Negative); Protein Urine Neg (Negative); RBC Urine RARE /hpf (0-2); Urine Appearance Clear (CLEAR); Urine Color Yellow (Yellow); Urobilinogen Urine Norm (Negative); WBC Urine 0-4 /hpf (0-5); pH Urine 6 (5-7)
[2022-07-18 10:08] LABS: Add Urine Culture? No; Bacteria Urine TRACE /hpf; Squamous Epithelial Cell Urine 0-4 /hpf (0-5)
[2022-07-18 10:24] LABS: Alanine Aminotransferase 13 U/L (0-33); Albumin Level 4.5 g/dL (3.5-5.2); Alkaline Phosphatase 84 U/L (35-105); Anion Gap 14.5 (5-19); Aspartate Amino Transferase 16 U/L (0-32); Blood Urea Nitrogen 11 mg/dL (6-20); Calcium 10.2 mg/dL (8.5-10.5); Carbon Dioxide 25 mmol/L (22-29); Chloride 99 mmol/L (98-107); Globulin 3.5 g/dL (1.3-4.6); Glomerular Filtration Rate 93.6 mL/min (90-130); Glucose 82 mg/dL (65-115); Lipase 30 U/L (13-60); Osmolality Calculated 278 mOsm/kg (285-295); Potassium 3.5 mmol/L (3.5-5.1); Sodium 135 mmol/L (136-145); Total Bilirubin 0.2 mg/dL (0.15-1.2)
[2022-07-18 10:56] VITALS: BP 118/77; PULSE 72; O2SAT 98
[2022-07-18 11:48] VITALS: BP 112/81; PULSE 71; O2SAT 98
[2022-07-18 13:30] VITALS: BP 115/77; PULSE 75; O2SAT 98
== END 2022-07-18 13:31 | disposition home or self-care (01) ==
PROVIDERS: Emergency Provider Emergency Medicine; PCP Nurse Practitioner Family
DX: K80.20 Calculus of gallbladder without cholecystitis without obstruction (principal)
CPT/HCPCS: 74176; 80053; 81001; 81025; 83690; 85025; 96374; 96375; 99285; J1885; J2405; J7030

== ENCOUNTER 2022-09-08 21:26 | Emergency (ER) | payer BC, MEDICAID, SELFPAY ==
[2022-09-08 21:32] VITALS: BP 144/91; PULSE 75; RESP 18; TEMP 37.1; O2SAT 100; BMI 24.5
--- NOTE | 2022-09-08 21:42 | W.ED.SKABFB ---
HPI - Skin/Abscess/Foreign Bdy General: Chief complaint: Skin/Abscess/Foreign Body Stated complaint: Bug bite, face Time Seen by Provider: 09/08/22 21:31 Source: patient Mode of arrival: ambulatory Limitations: no limitations History of Present Illness: 37-year-old female states she has had an abscess to her forehead over the last 4 to 5 days she had been on doxycycline but stated that this has improved she has had some drainage from it. States it is painful she rates her pain a 6 out of 10 denies any fevers. Denies any other symptoms. Associated symptoms: Deny chills or fever(s) Review of Systems Const: Denies: fever(s) or chills Eyes: Denies: blurry vision ENMT: Denies: throat pain Card: Denies: chest pain GI: Denies: abdominal pain Skin/Breast: Reports: erythema Neuro: Denies: headache(s) PFS ED PFSH: Medical History (Updated 09/08/22 @ 21:45 by Roma Judd MD) Enlarged uterus High risk medication use Immunization counseling Inflammatory arthritis Liver hemangioma Positive NATALIE (antinuclear antibody) Seropositive rheumatoid arthritis Sjogrens syndrome Surgical History History of tubal ligation Family History Other Cancer Diabetes Hypertension Stroke Denies family history of Rheumatoid arthritis Lupus Social History Smoking and tobacco status: never smoked Alcohol intake: never Substance/Drug Use: never Physical Exam Const: COMMON NORMALS: no acute distress and patient oriented x3 HENMT: COMMON NORMALS: normocephalic HEAD & SCALP: normocephalic OTHER: 2 cm abscess to forehead Eye: COMMON NORMALS: conjunctivae normal CONJUNCTIVA: Yes conjunctivae normal Chest: COMMONS NORMALS: normal inspection of the chest Resp: COMMON NORMALS: normal respiratory effort Cardio: COMMON NORMALS: regular rate RATE: regular rate GI: INSPECTION: Yes normal to inspection Extremity: COMMON NORMALS: normal to inspection Neuro: COMMON NORMALS: patient oriented x3 Psych: COMMON NORMALS: mental status grossly normal Procedures Abscess I/D Site: face Local Anesthetic: lidocaine 1% Amount of anesthesia used (mL): 3 Technique: incised with #11 blade Irrigation: No Packing used?: none Course Vital Signs: Vital signs: Vital Signs Temperature 98.7 F 09/08/22 21:32 Pulse Rate 75 09/08/22 21:32 Respiratory Rate 18 09/08/22 21:32 Blood Pressure 144/91 09/08/22 21:32 Pulse Oximetry 100 09/08/22 21:32 MDM - Skin/Abscess/Foreign Bdy Medicial Decision Making Patient presents for an abscess to her forehead did incise and drain it we will have her stop the doxycycline started on clindamycin she is to follow-up with her PCP and return if worsening she is to do warm compresses. Discharge Plan Discharge Patient Disposition: Home Clinical Impression: Abscess Condition: Stable Prescriptions: New clindamycin HCl 300 mg capsule 300 mg PO Q8H 7 Days Qty: 21 0RF No Action acyclovir 400 mg tablet 400 mg PO BID PRN (Reason: unknown) prednisone 5 mg tablet 5 mg PO DAILY doxycycline hyclate 100 mg tablet 100 mg PO BID 10 Days Qty: 20 0RF hydrocodone-acetaminophen 5-325 mg tablet 1 tab PO Q6H PRN (Reason: pain) Qty: 14 0RF Excedrin Extra Strength 250-250-65 mg Tablet 1 tab PO Q6H PRN (Reason: Pain) Discharge Orders: Discharge ED (Routine); Ordered 09/08/22 Ordered By: Roma Judd Referrals: Rosalind Graves FNP [Primary Care Provider] - 1-3 days Discharge Diet: Advance as tolerated Discharge Activity: Resume usual activity Patient Instructions: Abscess (ED) Coding Level of Care Code ED Blow Pit Helper for Kaelyn Vasquez
[2022-09-08] MEDS: HYDROcodone-acetaminophen 5-325 mg Tablet 1 TAB PO (21:58)
[2022-09-08] MEDS: lidocaine 1% INJ 10 mL (per mL) 20 ML INJECTION (21:58)
[2022-09-08] MEDS: clindamycin 150 mg Capsule 300 MG PO (21:58)
== END 2022-09-08 22:00 | disposition home or self-care (01) ==
PROVIDERS: Emergency Provider Emergency Medicine; PCP Nurse Practitioner Family
DX: L02.01 Cutaneous abscess of face (principal)
CPT/HCPCS: 10060; 99283

== ENCOUNTER 2022-09-22 22:08 | Emergency (ER) | payer BC, MEDICAID, SELFPAY ==
[2022-09-22 22:15] VITALS: BP 131/75; PULSE 101; RESP 16; TEMP 36.5; O2SAT 98; BMI 25.2
--- NOTE | 2022-09-22 22:17 | ED_ITS ---
HPI - Abdominal Pain General: Chief Complaint: Abdominal Pain Stated Complaint: abd pain Time Seen by Provider: 09/22/22 22:16 History of Present Illness: 37-year-old female with known gallstones comes in today with increased abdominal pain. Patient appears nontoxic. Patient appears in mild to moderate pain. Patient reports nausea but no vomiting. Patient reports chills but no fever. Patient reports diarrhea. Associated Symptoms: Reports chills, diarrhea and nausea Review of Systems General: Reports: 10 or more systems reviewed and unremarkable except in HPI and below Const: Reports: chills Card: Denies: chest pain Resp: Denies: dyspnea GI: Reports: abdominal pain, nausea and diarrhea : Denies: difficulty voiding Musc: Denies: neck pain or back pain PFSH ED PFSH: Medical History (Updated 09/22/22 @ 23:13 by LETITIA Amato) Enlarged uterus High risk medication use Immunization counseling Inflammatory arthritis Liver hemangioma Positive NATALIE (antinuclear antibody) Seropositive rheumatoid arthritis Sjogrens syndrome Surgical History History of tubal ligation Family History Other Cancer Diabetes Hypertension Stroke Denies family history of Rheumatoid arthritis Lupus Social History Smoking and tobacco status: never smoked Alcohol intake: never Substance/Drug Use: never Physical Exam Const: COMMON NORMALS: alert HENMT: COMMON NORMALS: normocephalic HEAD & SCALP: normocephalic Neck/C-Spine: COMMON NORMALS: full ROM Resp: COMMON NORMALS: normal respiratory effort and clear to auscultation bilaterally AUSCULTATION: clear to auscultation bilaterally Cardio: COMMON NORMALS: regular rate RATE: regular rate GI: COMMON NORMALS: Soft to palpation AUSCULTATION: Yes normoactive bowel sounds PALPATION: Yes Soft to palpation and Yes Tenderness to palpation present (GI) Details: RUQ Extremity: COMMON NORMALS: normal to inspection Neuro: SENSORIUM/ORIENTATION: Yes alert Skin: COMMON NORMALS: turgor normal GENERAL SKIN EXAM: turgor normal Course Vital Signs: Vital signs: Vital Signs Temperature 97.7 F 09/22/22 22:15 Pulse Rate 101 H 09/22/22 22:15 Respiratory Rate 16 09/22/22 22:46 Blood Pressure 131/75 09/22/22 22:15 Pulse Oximetry 98 09/22/22 22:15 MDM - Abdominal Pain Medical Decision Making 37-year-old female comes in today for complaints of abdominal pain with nausea and some diarrhea. On exam patient appears nontoxic. Abdomen soft with some right upper quadrant tenderness. Bowel sounds are present. Patient moves all extremities well. Vital signs are normal except for some mild elevation in pulse at 101. Differential diagnosis includes but not limited to cholecystitis, gallbladder colic, cholelithiasis, pancreatitis, enteritis. Laboratory values were unremarkable. Urinalysis was normal. KUB showed no signs of obstruction. Believe patient has gallbladder colic secondary to her cholelithiasis. No signs of obstruction or infection is noted on labs. Recommend medication for pain and nausea and follow-up with surgeon and primary care to maintain treatment. Lab Data 09/22/22 22:28 09/22/22 22: Labs/Radiology: Laboratory Results WBC 8.8 10^3/uL (4.0-10.0) 09/22/22: RBC 4.54 10^6/uL (4.1-5.3) 09/22/22: Hgb 12.7 g/dL (11.5-15.3) 09/22/22: Hct 39.5 % (37.0-47.0) 09/22/22: MCV 87.0 fl (81-99) 09/22/22: MCH 28.0 pg (28.0-34.0) 09/22/22: MCHC 32.2 g/dL (30.0-36.0) 09/22/22: RDW 13.4 % (12.1-15.1) 09/22/22: Plt Count 246 10^3/cmm (130-400) 09/22/22: MPV 10.3 fL (7.4-10.4) 09/22/22: Neut % (Auto) 74.7 % 09/22/22: Lymph % (Auto) 18.0 % 09/22/22: Blanco % (Auto) 6.0 % 09/22/22: Eos % (Auto) 0.9 % 09/22/22 22: Baso % (Auto) 0.2 % 09/22/22 22: Neut # (Auto) 6.54 10^3/uL (1.8-7.7) 09/22/22 22: Lymph # (Auto) 1.6 10^3/uL (0.8-4.8) 09/22/22 22: Blanco # (Auto) 0.5 10^3/uL (0.2-0.9) 09/22/22 22: Eos # (Auto) 0.1 10^3/uL (0.0-0.8) 09/22/22 22: Baso # (Auto) 0.0 10^3/uL (0.0-0.1) 09/22/22: Nucleated RBC % (auto) 0 % 09/22/22: Nucleated RBCs # 0.0 /100WBC 09/22/22 22: Sodium 137 mmol/L (136-145) 09/22/22 22: Potassium 3.3 mmol/L (3.5-5.1) L 09/22/22: Chloride 100 mmol/L (98-107) 09/22/22 22: Carbon Dioxide 28 mmol/L (22-29) 09/22/22: Anion Gap 12.3 (5-19) 09/22/22 22: BUN 9 mg/dL (6-20) 09/22/22 22: Creatinine 0.7 mg/dL (0.5-0.9) 09/22/22 22: GFR Calculation 93.6 mL/min (90-130) 09/22/22 22: Glucose 100 mg/dL (65-115) 09/22/22 22: Calculated Osmolality 283 mOsm/kg (285-295) L 09/22/22: Calcium 9.7 mg/dL (8.5-10.5) 09/22/22 22: Total Bilirubin 0.2 mg/dL (0.15-1.2) 09/22/22 22: AST 13 U/L (0-32) 09/22/22 22: ALT 11 U/L (0-33) 09/22/22 22:28 Alkaline Phosphatase 90 U/L (35-105) 09/22/22 22:28 Total Protein 7.6 g/dL (6.6-8.7) 09/22/22 22:28 Albumin 4.4 g/dL (3.5-5.2) 09/22/22 22: Globulin 3.2 g/dL (1.3-4.6) 09/22/22 22: Lipase 28 U/L (13-60) 09/22/22 22:28 HCG, Qual Negative (Negative) 09/22/22 22:28 Urine Color Yellow (Yellow) 09/22/22 22:33 Urine Appearance Clear (CLEAR) 09/22/22 22:33 Urine pH 6 (5-7) 09/22/22 22:33 Ur Specific [place] 1.030 (1.005-1.030) 09/22/22 22:33 Urine Protein Neg (Negative) 09/22/22 22:33 Urine Glucose (UA) Norm (Normal) 09/22/22 22:33 Urine Ketones Negative (Negative) 09/22/22 22:33 Urine Blood Neg (Negative) 09/22/22 22:33 Urine Nitrate Negative (Negative) 09/22/22 22:33 Urine Bilirubin Neg (Negative) 09/22/22 22:33 Urine Urobilinogen Norm mg/dL (Negative) 09/22/22 22:33 Ur Leukocyte Esterase Negative (Negative) 09/22/22 22:33 Discharge Plan Discharge Patient Disposition: Home Clinical Impression: Gallbladder colic Condition: Stable Prescriptions: New hydrocodone-acetaminophen 5-325 mg tablet 1 tab PO Q6H PRN (Reason: pain (scale score 7-10)) Qty: 10 0RF No Action acyclovir 400 mg tablet 400 mg PO BID PRN (Reason: unknown) tramadol 50 mg tablet 50 mg PO Q6H PRN (Reason: pain) Qty: 40 0RF Rx Instructions: 2 tablets every 6 hours as needed ondansetron 8 mg tablet,disintegrating 8 mg PO Q8H PRN (Reason: nausea and vomiting) Qty: 20 0RF prednisone 5 mg tablet 5 mg PO DAILY doxycycline hyclate 100 mg tablet 100 mg PO BID 10 Days Qty: 20 0RF hydrocodone-acetaminophen 5-325 mg tablet 1 tab PO Q6H PRN (Reason: pain) Qty: 14 0RF Excedrin Extra Strength 250-250-65 mg Tablet 1 tab PO Q6H PRN (Reason: Pain) Discharge Orders: Discharge ED (Routine); Ordered 09/22/22 Ordered By: Victor M Robles Referrals: Rosalind Graves FNP [Primary Care Provider] - Discharge Diet: Usual diet Discharge Activity: Increase activity as tolerated Patient Instructions: Biliary Colic (ED), Opioid Safety Activity Restrictions/Additional Instructions: Drink plenty of water. Avoid a diet heavy in fats. Use acetaminophen and ibuprofen to control pain. Use ondansetron as needed for nausea. Use hydroco done for severe pain. Follow-up with primary care for other instructions and refills. Return to ER for worsening symptoms such as high fever greater than 100.4, severe pain that is not controlled with medication, blood in vomit or stool, yellowing of skin color or eye color. Coding Level of Care Code ED [employer] for Kaelyn Vasquez
[2022-09-22 22:20] VITALS: BP 135/100; PULSE 90; RESP 16; O2SAT 96
--- NOTE | 2022-09-22 22:37 | XRR_ITS ---
PROCEDURE INFORMATION: Exam: XR Abdomen Exam date and time: 09/22/2022 10:45 PM Age: 37 years old Clinical indication: Abdominal pain; Acute; Additional info: Abd pain TECHNIQUE: Imaging protocol: Radiologic exam of the abdomen. Views: Frontal supine view of the abdomen. 1 View. COMPARISON: CT abdomen pelvis con [id number] 07/18/2022 10:29 AM FINDINGS: Gastrointestinal tract: Increased fecal content in the colon. Nonobstructive bowel gas pattern. Intraperitoneal space: No free intraperitoneal air. Surgical clips in the left mid abdomen and right hemipelvis are stable. Organs: No organomegaly. Vasculature: Multiple calcifications in the pelvis most likely representing calcified phleboliths. Bones/joints: Unremarkable. XR/XR KUB [id number] IMPRESSION: 1. Nonobstructed bowel gas pattern. 2. Increased fecal content in the colon. 3. Incidental/nonacute findings are listed in the report.
[2022-09-22 22:41] LABS: Basophils % 0.2 %; Eosinophils # 0.1 10^3/uL (0.0-0.8); Eosinophils % 0.9 %; Hematocrit 39.5 % (37.0-47.0); Hemoglobin 12.7 g/dL (11.5-15.3); Lymphocytes # 1.6 10^3/uL (0.8-4.8); Mean Corpuscular HGB Conc 32.2 g/dL (30.0-36.0); Mean Platelet Volume 10.3 fL (7.4-10.4); Monocytes # 0.5 10^3/uL (0.2-0.9); Neutrophils # 6.54 10^3/uL (1.8-7.7); Neutrophils % 74.7 %; Nucleated Red Blood Cells % 0 %; Platelet Count 246 10^3/cmm (130-400); Red Blood Count 4.54 10^6/uL (4.1-5.3); Red Cell Distribution Width 13.4 % (12.1-15.1); White Blood Count 8.8 10^3/uL (4.0-10.0)
[2022-09-22 22:42] LABS: Add Urine Microscopic? NO; Charge for UA Resulting for Rev
[2022-09-22 22:45] LABS: Bilirubin Urine Neg (Negative); Blood Urine Neg (Negative); Glucose Urine UA Norm (Normal); Ketones Urine Negative (Negative); Leukocyte Esterase Urine Negative (Negative); Nitrate Urine Negative (Negative); Protein Urine Neg (Negative); Urine Appearance Clear (CLEAR); Urine Color Yellow (Yellow); Urobilinogen Urine Norm (Negative); pH Urine 6 (5-7)
[2022-09-22 22:45] LABS: HCG, Serum Qual Negative (Negative)
[2022-09-22] MEDS: sodium chloride 0.9% 1,000 ML 999 ML IV (22:45)
[2022-09-22 22:46] VITALS: RESP 16
[2022-09-22] MEDS: morphine 4 mg/mL SDV 1 mL IVP (22:46)
[2022-09-22] MEDS: ondansetron 2 mg/ML SDV 2 mL 4 MG IVP (22:46)
[2022-09-22] MEDS: ketorolac 30 mg/mL INJ 15 MG IVP (22:46)
[2022-09-22 22:50] VITALS: BP 131/91; PULSE 82; RESP 16; O2SAT 93
[2022-09-22 22:55] LABS: Alanine Aminotransferase 11 U/L (0-33); Albumin Level 4.4 g/dL (3.5-5.2); Alkaline Phosphatase 90 U/L (35-105); Anion Gap 12.3 (5-19); Aspartate Amino Transferase 13 U/L (0-32); Blood Urea Nitrogen 9 mg/dL (6-20); Calcium 9.7 mg/dL (8.5-10.5); Carbon Dioxide 28 mmol/L (22-29); Chloride 100 mmol/L (98-107); Globulin 3.2 g/dL (1.3-4.6); Glomerular Filtration Rate 93.6 mL/min (90-130); Glucose 100 mg/dL (65-115); Lipase 28 U/L (13-60); Osmolality Calculated 283 mOsm/kg (285-295); Potassium 3.3 mmol/L (3.5-5.1); Sodium 137 mmol/L (136-145); Total Bilirubin 0.2 mg/dL (0.15-1.2); Total Protein 7.6 g/dL (6.6-8.7)
[2022-09-23 00:14] VITALS: BP 124/84; PULSE 76; RESP 16; O2SAT 96
== END 2022-09-22 23:23 | disposition home or self-care (01) ==
PROVIDERS: Emergency Provider Nurse Practitioner Family; PCP Nurse Practitioner Family
DX: K80.20 Calculus of gallbladder without cholecystitis without obstruction (principal)
CPT/HCPCS: 36415; 74018; 80053; 81003; 83690; 84703; 85025; 96361; 96374; 96375; 99284; J1885; J2270; J2405; J7030

== ENCOUNTER 2022-11-09 05:55 | Day surgery (SDC) | payer BC, MEDICAID, SELFPAY ==
[2022-11-06 09:17] VITALS: BMI 26.0
[2022-11-09] VITALS (10 sets, daily range): BP systolic 126–149; BP diastolic 69–96; PULSE 56–68; RESP 16–18; TEMP 36.1–36.2; O2SAT 98–100
[2022-11-09 06:13] LABS: OR HCG Qualitative Urine Negative (Negative)
[2022-11-09] MEDS: sodium chloride 0.9% 1,000 ML 30 ML IV (06:20)
[2022-11-09] MEDS: ondansetron 2 mg/ML SDV 2 mL 4 MG IVP (06:24)
[2022-11-09] MEDS: scopolamine 1.5 Patch 1 PATCH TRANSDERMA (06:25)
--- NOTE | 2022-11-09 06:37 | ANES.PREANE2 ---
Pre-Anesthetic Assessment Height/Weight: Height 1.55 m Weight 62.596 kg Temp Pulse Resp BP Pulse Ox O2 Del Method 97 F L 67 18 148/96 100 Room Air 11/09/22 06:16 11/09/22 06:16 11/09/22 06:16 11/09/22 06:25 11/09/22 06:16 11/09/22 06:18 Operation Date: 11/09/22 07:00 Proposed Procedures p [id number] LAP RAMYA : K82.9(Not Applicable) - Grady Fisher DO Familial anesthetic complications: PONV Was Beta Rehana taken within 24 hours: N/A Was Clonidine taken within 24 hours: N/A Last intake: Intake Last Liquid Date 11/08/22 Last Liquid Time 21:30 Last Solid Date 11/08/22 Last Solid Time 21:30 Social No alcohol and No tobacco Exam alert, oriented x 3, clear to auscultation bilaterally and regular rate & rhythm Airway Mallampati: Class I Dentition: false Musc/skel Rheumatoid Arthritis (last took prednisone 3-4 months ago) Anesthetic Plan ASA status: 2 Anesthesia: General Risk of > 500 ml blood loss (7ml/kg in children): No Medications/Allergies Home Medications Medication Instructions Recorded Confirmed Last Taken Type acyclovir 400 mg tablet 400 mg PO BID PRN unknown 05/24/19 11/06/22 07/16/19 History [id number] 250 1 tab PO Q6H PRN Pain 07/18/22 11/06/22 11/08/22 20:30 History mg-250 mg-65 mg tablet (Excedrin Extra Strength) ondansetron 8 mg disintegrating 8 mg PO Q8H PRN nausea and 09/22/22 11/06/22 Unknown Rx tablet vomiting #20 tabs tramadol 50 mg tablet 50 mg PO Q6H PRN pain #40 tabs 09/22/22 11/06/22 Unknown Rx Allergies Allergy/AdvReac Type Severity Reaction Status Date / Time sulfamethoxazole Allergy rash Verified 11/06/22 09:13 [From Bactrim] sulfasalazine Allergy ADR-Diarrhe Verified 11/06/22 09:13 a trimethoprim [From Bactrim] Allergy rash Verified 11/06/22 09:13 Current Medications Generic Name Dose Route Start Last Admin Trade Name Freq PRN Reason Stop Dose Admin Sodium Chloride 1,000 mls @ 30 mls/hr 11/09/22 06:00 11/09/22 06:20 Sodium Chloride 0.9% IV 11/10/22 05:59 30 mls/hr .Q24H OK Administration Ondansetron HCl 4 mg 11/09/22 05:58 11/09/22 06:24 Ondansetron 2 Mg/Ml Sdv 2 Ml IVP 4 mg ONCE PRN Administration NAUSEA AND VOMITING PFSH Anesthesia Medical History (Updated 09/30/22 @ 00:01 by ISIS Mayes) Enlarged uterus High risk medication use Immunization counseling Inflammatory arthritis Liver hemangioma Positive NATALIE (antinuclear antibody) Seropositive rheumatoid arthritis Sjogrens syndrome Surgical History History of tubal ligation Family History Other Cancer Diabetes Hypertension Stroke Denies family history of Rheumatoid arthritis Lupus Social History Smoking and tobacco status: never smoked Alcohol intake: never Substance/Drug Use: never Data Anesthesia Cardiac Studies: No Data to Display
--- NOTE | 2022-11-09 06:46 | PM.HP ---
Providers/Chief Complaint Primary Care Provider: Rosalind Graves SUBSTATION OPERATOR Chief Complaint: 37017 K82.9 History of Present Illness Donna Mendez is a 37 year old female Medications/Allergies Home Medications Medication Instructions Recorded Confirmed Last Taken Type acyclovir 400 mg tablet 400 mg PO BID PRN unknown 05/24/19 11/06/22 07/16/19 History [id number]-rgtnymzhstvqs-byxvmjwv 250 1 tab PO Q6H PRN Pain 07/18/22 11/06/22 11/08/22 20:30 History mg-250 mg-65 mg tablet (Excedrin Extra Strength) ondansetron 8 mg disintegrating 8 mg PO Q8H PRN nausea and 09/22/22 11/06/22 Unknown Rx tablet vomiting #20 tabs tramadol 50 mg tablet 50 mg PO Q6H PRN pain #40 tabs 09/22/22 11/06/22 Unknown Rx Allergies Allergy/AdvReac Type Severity Reaction Status Date / Time sulfamethoxazole Allergy rash Verified 11/06/22 09:13 [From Bactrim] sulfasalazine Allergy ADR-Diarrhe Verified 11/06/22 09:13 a trimethoprim [From Bactrim] Allergy rash Verified 11/06/22 09:13 PFSH Acute PFSH: Medical History (Updated 11/09/22 @ 06:47 by Grady Fisher DO) Enlarged uterus High risk medication use Immunization counseling Inflammatory arthritis Liver hemangioma Positive NATALIE (antinuclear antibody) Seropositive rheumatoid arthritis Sjogrens syndrome Surgical History History of tubal ligation Family History Other Cancer Diabetes Hypertension Stroke Denies family history of Rheumatoid arthritis Lupus Social History Smoking and tobacco status: never smoked Alcohol intake: never Substance/Drug Use: never Vitals/I&O/Wt Last Vital Signs Temp 97 F L 11/09/22 06:16 Pulse 67 11/09/22 06:16 Resp 18 11/09/22 06:16 BP 148/96 11/09/22 06:25 Pulse Ox 100 11/09/22 06:16 O2 Del Method Room Air 11/09/22 06:18 A&P Assessment and plan (1) Symptomatic cholelithiasis: Plan Laparoscopic cholecystectomy Attestations Medical Necessity Statement*: Home Coding Level of Care Code Acute Code for Chg Fwd Diagnoses Symptomatic cholelithiasis K80.20
[2022-11-09] MEDS: ceFAZolin 2,000 MG in sodium chloride 0.9% (plus) 50 ML 100 MG IV (07:04)
[2022-11-09] MEDS: lidocaine-epi 2% 20 mL INJ INJECTION (07:21)
--- NOTE | 2022-11-09 07:54 | PM.OP ---
Operative Report Date of procedure: November 09, 2022 Pre-op diagnosis: Symptomatic cholelithiasis Post-op diagnosis: same Procedure done: Laparoscopic cholecystectomy Implants: None Specimens removed/disposition: Gallbladder Surgeon: Dr. Grady Fisher DO Anesthesia: General Estimated blood loss (mL): 5 Complications: None apparent Brief History: This is a very pleasant 37-year-old female who was diagnosed with symptomatic cholelithiasis. Laparoscopic cholecystectomy was indicated. The risk and benefits were explained and documented. Procedure: Patient was wheeled into the operative room and placed on the OR table in a supine position. Abdomen was inspected prepped and draped in usual sterile fashion. Time-out was performed and all present were in agreement. A 15 blade scalp was used to make a stab incision in the left upper quadrant and intra-abdominal insufflation was achieved using a Veress needle. After localizing the tissue incisions were made and a 5 millimeter trocar was placed into the umbilicus as well as 2 in the right upper quadrant. A 12 millimeter trocar was placed in the epigastrium. Gallbladder was grasped and elevated. The triangle of Calot was carefully dissected using blunt dissection and electrocautery until the triangle of Calot clearly identified. The cystic duct was clipped proximally and double clipped distally. The duct was then ligated proximally. The cystic artery was doubly clipped and ligated. The gallbladder was then removed from the liver bed using electrocautery. The gallbladder was removed from the abdomen using an Endo-Catch bag through the epigastric incision. The liver bed was inspected and no bleeding was seen. The abdomen was irrigated and suctioned. All ports removed. Skin was washed and dried. Incisions were closed with 3-0 and 4-O Vicryl in a subcuticular interrupted fashion. Skin glue was applied. Patient tolerated the procedure well.
[2022-11-09] MEDS: fentaNYL 50 mcg/mL INJ 2mL IVP (08:05)
[2022-11-09] MEDS: HYDROcodone-acetaminophen 10-325 mg Tablet 1 TAB PO (08:46)
--- NOTE | 2022-11-09 09:00 | ANE.PACU2 ---
Inpatient post-anesthesia follow up: Airway intact: Yes Vital signs: Temperature 97.1 F Pulse Rate 58 Respiratory Rate 16 Blood Pressure 129/80 Pulse Oximetry 98 Oxygen Delivery Me thod Room Air Oxygen Flow Rate 6 Fraction of Inspir ed Oxygen Hydration adequate: Yes Nausea and vomiting: Yes Pain level: 1 Mental status: Baseline
== END 2022-11-09 09:04 | disposition home or self-care (01) ==
PROVIDERS: Anesthesiology; PCP Nurse Practitioner Family; Visit Provider Surgery
PROC: 0FT44ZZ Resection of Gallbladder, Percutaneous Endoscopic Approach (ICD-10-PCS; CPT 47562; principal; 2022-11-09 07:00)
DX: K80.10 Calculus of gallbladder with chronic cholecystitis without obstruction (principal); M05.9 Rheumatoid arthritis with rheumatoid factor, unspecified; Z79.899 Other long term (current) drug therapy; Z79.82 Long term (current) use of aspirin; Z88.2 Allergy status to sulfonamides
CPT/HCPCS: 47562; 81025; 84703; 88304; J0690; J1100; J2405; J2704; J2710; J3010; J3490; J7030

== ENCOUNTER → 2023-03-04 13:00 | Outpatient (BNVA) | payer BC, MEDICAID, SELFPAY | PROVIDERS: PCP Nurse Practitioner Family; Visit Provider Nurse Practitioner Women's Health | DX: Z87.42 Personal history of other diseases of the female genital tract (principal); R10.2 Pelvic and perineal pain | CPT/HCPCS: 87077; 87086; 87184; 87491; 87591; 87624 ==

== ENCOUNTER → 2023-03-16 15:16 | Outpatient (BNVA) | payer BC, MEDICAID, SELFPAY | PROVIDERS: PCP Nurse Practitioner Family; Visit Provider Nurse Practitioner Women's Health | DX: R10.2 Pelvic and perineal pain (principal); D25.9 Leiomyoma of uterus, unspecified | CPT/HCPCS: 76830 ==

== ENCOUNTER → 2023-05-01 16:24 | Outpatient (BNVA) | payer BC, MEDICAID, SELFPAY | PROVIDERS: PCP Nurse Practitioner Family; Visit Provider Emergency Medicine | DX: M25.512 Pain in left shoulder (principal) | CPT/HCPCS: 73030 ==

== ENCOUNTER → 2023-06-15 16:52 | Outpatient (BNVA) | payer BC, MEDICAID, SELFPAY | PROVIDERS: PCP Nurse Practitioner Family; Visit Provider Nurse Practitioner | DX: J06.9 Acute upper respiratory infection, unspecified (principal) | CPT/HCPCS: 87400 ==

== ENCOUNTER 2023-09-06 16:48 | Emergency (ER) | payer BC, MEDICAID, SELFPAY ==
[2023-09-06 16:57] VITALS: BP 138/91; PULSE 79; RESP 16; TEMP 36.6; O2SAT 98
--- NOTE | 2023-09-06 17:13 | XRR_ITS ---
PROCEDURE INFORMATION: Exam: XR Right Shoulder Exam date and time: 09/06/2023 5:25 PM Age: 38 years old Clinical indication: Pain; Shoulder; Right; Additional info: Pain no trauma TECHNIQUE: Imaging protocol: Radiologic exam of the right shoulder. Views: 2 or more views. COMPARISON: CR XR chest 1V portable [id number] 12/28/2021 9:22 PM FINDINGS: Bones/joints: The glenohumeral articulation is grossly intact. The acromioclavicular articulation is grossly intact. Soft tissues: No gross soft tissue abnormality. XR/XR shoulder RT min 2V* [id number] IMPRESSION: 1. No evidence of fracture or subluxation.
[2023-09-06] MEDS: ketorolac 60 mg/2 mL INJ IM (19:29)
[2023-09-06] MEDS: dexamethasone 10 mg/mL INJ 8 MG IM (19:30)
[2023-09-06] MEDS: methocarbamol 750 mg Tablet PO (19:31)
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
== END 2023-09-06 20:47 | disposition home or self-care (01) ==
PROVIDERS: Emergency Provider Physician Assistant; PCP Nurse Practitioner Family
DX: S46.911A Strain of unspecified muscle, fascia and tendon at shoulder and upper arm level, right arm, initial encounter (principal); V89.2XXA Person injured in unspecified motor-vehicle accident, traffic, initial encounter
CPT/HCPCS: 73030; 96372; 99284; J1100; J1885

== ENCOUNTER → 2023-11-01 15:24 | Outpatient (BNVA) | payer BC, MEDICAID, SELFPAY | PROVIDERS: PCP Nurse Practitioner Family; Visit Provider Nurse Practitioner | DX: J02.9 Acute pharyngitis, unspecified (principal) | CPT/HCPCS: 87880 ==

== ENCOUNTER → 2024-03-15 14:04 | Outpatient (BNVA) | payer BC, MEDICAID, SELFPAY | PROVIDERS: PCP Nurse Practitioner Family; Visit Provider Emergency Medicine | DX: J02.9 Acute pharyngitis, unspecified (principal) | CPT/HCPCS: 87071; 87880 ==

== ENCOUNTER → 2024-04-08 13:34 | Outpatient (BNVA) | payer BC, MEDICAID, SELFPAY | PROVIDERS: PCP Nurse Practitioner Family; Visit Provider Emergency Medicine | DX: J02.9 Acute pharyngitis, unspecified (principal) | CPT/HCPCS: 87071; 87880 ==

== ENCOUNTER → 2024-04-28 15:51 | Outpatient (BNVA) | payer BC, MEDICAID, SELFPAY | PROVIDERS: PCP Nurse Practitioner Family; Visit Provider Nurse Practitioner Family | DX: R19.7 Diarrhea, unspecified (principal) | CPT/HCPCS: 87400 ==

== ENCOUNTER 2024-10-05 16:15 | Outpatient (CLI) | payer OTHER, SELFPAY ==
[2024-10-05 17:42] LABS: Hematocrit 37.5 % (36-47); Hemoglobin 12.20 g/dL (11.27-16.99); Mean Corpuscular HGB Conc 32.5 g/dL (30-55); Mean Corpuscular Hemoglobin 29.3 pg (27-33); Mean Corpuscular Volume 89.9 fl (85-98); Nucleated Red Blood Cells % 0 %; Platelet Count 303 10^3/cmm (157-399); Red Blood Count 4.17 10^6/uL (3.85-5.65); White Blood Count 6.43 10^3/uL (3.29-11.43)
[2024-10-05 17:58] LABS: Alanine Aminotransferase 14 U/L (0-33); Albumin Level 4.3 g/dL (3.5-5.2); Alkaline Phosphatase 96 U/L (35-105); Anion Gap 14.9 (5-19); Aspartate Amino Transferase 16 U/L (0-32); Blood Urea Nitrogen 12 mg/dL (6-20); Calcium 9.2 mg/dL (8.5-10.5); Carbon Dioxide 25 mmol/L (22-29); Chloride 100 mmol/L (98-107); Cholesterol 214 mg/dL (0-200); Globulin 3.1 g/dL (1.3-4.6); Glucose 91 mg/dL (65-115); HDL Cholesterol 38 mg/dL (60-100); Osmolality Calculated 281 mOsm/kg (285-295); Potassium 3.9 mmol/L (3.5-5.1); Sodium 136 mmol/L (136-145); Thyroid Stimulating Hormone 2.29 uIU/mL (0.27-4.20); Total Protein 7.4 g/dL (6.6-8.7); Triglycerides 432 mg/dL (0-150)
[2024-10-05 20:24] LABS: Free T4 Free Thyroxine 0.98 ng/dL (0.82-1.77)
== END 2024-10-05 16:16 | disposition home or self-care (01) ==
PROVIDERS: PCP Family Medicine; Visit Provider Family Medicine
DX: M19.90 Unspecified osteoarthritis, unspecified site (principal); D18.03 Hemangioma of intra-abdominal structures
CPT/HCPCS: 36415; 80053; 80061; 83721; 84439; 84443; 85025

== ENCOUNTER → 2024-10-17 10:57 | Outpatient (BNVA) | payer OTHER, SELFPAY | PROVIDERS: PCP Family Medicine; Referring Provider Nurse Practitioner Family; Visit Provider Internal Medicine Rheumatology | DX: M35.00 Sjogren syndrome, unspecified (principal); M25.50 Pain in unspecified joint | CPT/HCPCS: 36415; 82306; 82607; 82746; 82784; 85651; 86140; 86480; 86704; 86803; 87340 ==

== ENCOUNTER 2024-11-09 21:00 | Emergency (ER) | payer OTHER, SELFPAY ==
--- OUTSIDE RECORDS SUMMARY | 2024-11-09 21:05 | XMS_ITS | Encounter Summary ---
Author Organization [facility] Address [address] [place] [address] Care Team Providers Care Teacher Emotionally Impaired Name Role Phone Unavailable Primary Care Provider Unavailabl e Encounter Details Date Type Department Care Team (Late st Contact Info) Description 11/07/2024 External Device Data [facility]CTION Provider, Abstract NO ADDRESS ON FILE Social History Tobacco Use Types Packs/Day Years Used Date Smoking Tobacco: Never Smokeless Tobacco: Never Alcohol Use Standard Drinks/Week Comments Not Currently 0 (1 standard drink = 0.6 oz pur e alcohol) Comments No Sex and Gender Information Value Date Recorded Sex Assigned at Not on file Legal Sex Female 10:28 AM CDT Gender Identity Not on file Sexual Orientation Not on file documented as of this encounter Plan of Treatment Not on file documented as of this encounter Visit Diagnoses Not on filedocumented in this encounter
--- OUTSIDE RECORDS SUMMARY | 2024-11-09 21:05 | XMS_ITS | Clinical Summary ---
Author Organization [facility] Address [address] [place] [address] Care Team Providers Care Organic Preparation Analyst Name Role Phone Unavailable Primary Care Provider Unavailabl e Allergies Active Allergy Reactions Criticality Noted Date Comments Sulfamethoxazole-Trime thoprim Other (See Comments) 10/29/2023 Same reactions as Sulfasalazine Sulfasalazine Other (See Comments) 10/29/2023 Patient reports swollen sores , migraines , depression , and vomiting with this medication Medications acyclovir (ZOVIRAX) 400 mg tablet Take 400 mg by mouth 1 time daily as needed for Other (See Comment) (cold sores / herpes flare). Active sertraline (ZOLOFT) 50 mg tablet Take 75 mg by mouth daily. Active hydroxychloroqu ine (PlaqueniL) 200 mg tablet Take 1 tablet in the AM on Wed through and 1 tablet twice per day on Wed through Sun 45 Tablet 4 08/24/2024 Active Active Problems No known active problems Encounters Date Type Department Care Team Description 11/07/2024 External Device Data [facility]STRACTION Provider, Abstract 10/18/2024 External Device Data [facility] Provider, Abstract 10/18/2024 External Device Data [facility] Provider, Abstract 09/19/2024 External Device Data [facility] Provider, Abstract 09/05/2024 External Device Data [facility] Provider, Abstract 08/29/2024 External Device Data [facility] Provider, Abstract 08/23/2024 External Device Data [facility] Provider, Abstract 08/23/2024 External Device Data [facility] Provider, Abstract 08/23/2024 [facility] [place] [address] [place] [address] Matthew Rod MD from Last 3 Months Social History Tobacco Use Types Packs/Day Years Used Date Smoking Tobacco: Never Smokeless Tobacco: Never Tobacco Cessation:Counseling Given: Not Answered Alcohol Use Standard Drinks/Week Comments Not Currently 0 (1 standard drink = 0.6 oz pur e alcohol) Comments No Sex and Gender Information Value Date Recorded Sex Assigned at Not on file Legal Sex Female 10:28 AM CDT Gender Identity Not on file Sexual Orientation Not on file Last Filed Vital Signs Vital Sign Reading Time Taken Comments Blood Pressure 122/74 03/01/2024 8:05 AM STEAM BOX TENDER Pulse 75 03/01/2024 8:05 AM STEAM BOX TENDER Temperature - - Respiratory Rate - - Oxygen Saturation 99% 03/01/2024 8:05 AM STEAM BOX TENDER Inhaled Oxygen Concentration - - Weight 63 kg (139 lb) 03/01/2024 8:05 AM STEAM BOX TENDER Height 160 cm (5' 3 ) 03/01/2024 8:05 AM STEAM BOX TENDER Body Mass Index 24.62 03/01/2024 8:05 AM STEAM BOX TENDER Plan of Treatment Health Maintenance Due Date Last Done Comments DTAP/TDAP/TD VACCINES (1 - Tdap) 2003 HEPATITIS B VACCINES (1 of 3 - 19+ 3-dose series) 2003 HPV/Cotest (21-29) 2005 CERVICAL CANCER SCREENING 2014 HPV/Cotest (30-65) 2014 PAP SMEAR 2014 BREAST CANCER SCREENING 2024 INFLUENZA VACCINE (#1) 2024 HPV VACCINES Aged Out No longer eligi ble based on patient's age to complete this topic Insurance [address] [place] [id number] [facility] MEDICAID
[2024-11-09 21:07] VITALS: BP 146/91; PULSE 89; RESP 16; TEMP 36.6; O2SAT 99; BMI 30.9
--- NOTE | 2024-11-09 21:12 | XRR_ITS ---
PROCEDURE INFORMATION: Exam: XR Chest Exam date and time: 11/09/2024 9:34 PM Age: 39 years old Clinical indication: Pain; Chest pressure; Additional info: Cp TECHNIQUE: Imaging protocol: Radiologic exam of the chest. Views: 1 view. COMPARISON: CR XR chest 1V portable [id number] 12/28/2021 9:22 PM FINDINGS: Lungs: Unremarkable. No consolidation. Pleural spaces: Unremarkable. No pleural effusion. No pneumothorax. Heart/Mediastinum: Unremarkable. No cardiomegaly. Bones/joints: Unremarkable. XR/XR chest 1V portable [id number] IMPRESSION: No acute findings.
--- NOTE | 2024-11-09 21:12 | ECG_ITS ---
[facility] Test Date: 2024-11-09 Pat Name: Donna Chao Department: Room: Gender: Female Lay Out Inspector: : 1985 Requested By: Samy Abrams Order Number: [id number] Silverman MD: Jono Heart M.D. Measurements Intervals [place] Rate: 93 P: 50 FL: 131 QRS: 42 QRSD: 80 T: 1 QT: 304 QTc: 380 Interpretive Statements SINUS RHYTHM No previous ECG available for comparison Electronically Signed On 11-10-2024 13:46:57 CDT by Jono Heart M.D. [email or web address] [id number]
[2024-11-09 22:24] LABS: Hematocrit 37.4 % (36-47); Hemoglobin 12.00 g/dL (11.27-16.99); Mean Corpuscular HGB Conc 32.1 g/dL (30-55); Mean Corpuscular Hemoglobin 28.6 pg (27-33); Mean Corpuscular Volume 89.0 fl (85-98); Nucleated Red Blood Cells % 0 %; Platelet Count 323 10^3/cmm (157-399); Red Blood Count 4.20 10^6/uL (3.85-5.65); White Blood Count 12.68 10^3/uL (3.29-11.43)
[2024-11-09 22:48] LABS: Troponin(5th) Baseline < 6 ng/L (0-10)
[2024-11-09 22:49] LABS: Alanine Aminotransferase 23 U/L (0-33); Albumin Level 4.1 g/dL (3.5-5.2); Alkaline Phosphatase 90 U/L (35-105); Anion Gap 14.9 (5-19); Aspartate Amino Transferase 15 U/L (0-32); Blood Urea Nitrogen 9 mg/dL (6-20); Calcium 9.9 mg/dL (8.5-10.5); Carbon Dioxide 27 mmol/L (22-29); Chloride 102 mmol/L (98-107); Creatinine Clr Calc Pharmacy 114.9775; Globulin 2.6 g/dL (1.3-4.6); Glucose 108 mg/dL (65-115); Osmolality Calculated 289 mOsm/kg (285-295); Potassium 3.9 mmol/L (3.5-5.1); Sodium 140 mmol/L (136-145); Total Protein 6.7 g/dL (6.6-8.7)
--- NOTE | 2024-11-09 22:54 | W.ED.CHESTPA ---
HPI - Chest Pain General: Chief Complaint: Chest Pain Stated Complaint: SOB,Tightness in chest, BP high Time Seen by Provider: 11/09/24 22:32 Source: patient Mode of arrival: ambulatory Limitations: no limitations History of Present Illness: Patient is a 39-year-old female with past medical history of rheumatoid arthritis on methotrexate presenting to the emergency department with chest pain beginning 2 days ago. She states she has been doing the chest pain for months now, is set to see a link trainer teacher but has not not had an appointment set up yet. States that she was on hydroxychloroquine but was switched to methotrexate 3 weeks ago, is concerned that her symptoms are related to this. She states the pain does feel somewhat different, as it is more pleuritic in nature and associated with a dry cough. Denies any fevers. States that she has been taking ywvx-mdu-[id number] cough drops and other remedies, has an inhaler but has not been using it. The chest pain is centrally located, nonradiating. She does note some numbness and tingling in her jaw, and states she does have increased anxiety. She has never had echocardiogram, coronary cath, or stress testing. She does note a familial history of cardiac issues. Currently she is minimally hypertensive, no tachycardia noted and afebrile. 99% SpO2 on room air. MD complaint: chest pain Onset (ago): day(s) Prior episodes: Yes Onset: during rest Pain location: substernal Pain radiation: none Severity: moderate Quality: tightness Exacerbating factors: inspiration and stress Context: new medications Associated symptoms: Reports dyspnea; Deny abdominal pain, fever(s), nausea, palpitations or vomiting Related Data Home Medications ?Medication ?Instructions ?Recorded ?Confirmed gtvlcky-[id number]-axeowgtt 250 1 tab PO Q6H PRN Pain 07/18/22 10/17/24 mg-250 mg-65 mg tablet (Excedrin Extra Strength) Previous Rx's ?Medication ?Instructions ?Recorded ibuprofen 600 mg tablet 600 mg PO Q8H PRN pain #30 tabs 05/01/23 cetirizine 10 mg tablet (Zyrtec) 10 mg PO DAILY #30 tabs 07/09/23 fluticasone propionate 50 2 spray intranasal BID #16 grams 04/28/24 mcg/actuation nasal spray,suspension (Flonase Allergy Relief) ondansetron 4 mg disintegrating 4 mg PO Q8H PRN nausea and 06/15/24 tablet vomiting #10 tabs acyclovir 400 mg tablet 400 mg PO BID PRN for flare #30 10/02/24 tabs amitriptyline 25 mg tablet 25 mg PO DAILY #60 tabs 10/02/24 sumatriptan succinate 25 mg tablet See Rx Instructions PO .COMPLEX #9 10/02/24 tabs folic acid 1 mg tablet 1 mg PO DAILY #30 tabs 10/17/24 methotrexate sodium 2.5 mg tablet See Rx Instructions PO .Q7days #30 10/17/24 tabs omeprazole 40 mg capsule,delayed See Rx Instructions PO DAILY #30 10/17/24 release caps pilocarpine HCl 5 mg tablet 5 mg PO TID #90 tabs 10/17/24 prednisone 10 mg tablet See Rx Instructions .Route 10/17/24 .COMPLEX joint pain #90 tabs Allergies Allergy/AdvReac Type Severity Reaction Status Date / Time sulfamethoxazole (From Allergy rash Verified 10/17/24 09:39 Bactrim) sulfasalazine Allergy ADR-Diarrhe Verified 10/17/24 09:39 a trimethoprim (From Bactrim) Allergy rash Verified 10/17/24 09:39 Review of Systems General: Reports: 10 or more systems reviewed and unremarkable except in HPI and below Const: Denies: fever(s), chills or fatigue Eyes: Denies: change in vision ENMT: Denies: throat pain, ear or mastoid pain or nasal discharge Card: Reports: chest pain; Denies: palpitations, swelling of feet/ankles or lightheadedness Resp: Reports: dyspnea and non-productive cough; Denies: productive cough or wheezing GI: Denies: abdominal pain, nausea, vomiting, diarrhea or constipation : Denies: flank pain, difficulty voiding, dysuria or urinary frequency Musc: Denies: neck pain, back pain or joint pain Skin/Breast: Denies: rash Neuro: Reports: sensory changes (facial numbness); Denies: headache(s) or weakness in extremities Psych: Reports: anxiety PFSH ED PFSH: Medical History Fatigue Immunization counseling Fibromyalgia HSV infection No pertinent past medical history neghx: htn,dm,thryoid,dvt/pe PCP: Rosalind Graves Seropositive rheumatoid arthritis High risk medication use Inflammatory arthritis Positive NATALIE (antinuclear antibody) Sjogrens syndrome Enlarged uterus Liver hemangioma Surgical History History of cholecystectomy (~01/2023) History of conization of cervix (~07/2018) pathology report confirming VERNELL-2 and VERNELL-3 with free margins. Performed by Josh. History of tubal ligation Family History Father Diabetes Heart disease Colon cancer Hyperlipidemia Hypertension Grandfather Diabetes Hyperlipidemia Hypertension Heart disease Stroke Grandmother Diabetes Mother Breast cancer, Onset Age: 53 Denies family history of Rheumatoid arthritis Ovarian cancer Prostate cancer Thyroid cancer Lupus Uterine cancer Thyroid disease Social History Smoking and tobacco/nicotine status: never used tobacco/nicotine Physical Exam Const: COMMON NORMALS: no acute distress, patient oriented x3 and no limitations GENERAL APPEARANCE: cooperative, comfortable and well developed ORIENTATION/CONSCIOUSNESS: Yes awake, Yes oriented to person, Yes oriented to place and Yes oriented to time HENMT: COMMON NORMALS: normocephalic, atraumatic and hearing grossly normal bilaterally HEAD & SCALP: normocephalic and atraumatic Eye: COMMON NORMALS: Equal, round and reactive pupils present, EOMs intact bilaterally and conjunctivae normal CONJUNCTIVA: Yes conjunctivae normal PUPIL: Yes Equal, round and reactive pupils present Neck/C-Spine: COMMON NORMALS: full ROM, supple and no JVD Resp: COMMON NORMALS: normal respiratory effort, No retractions, No use of accessory muscles and clear to auscultation bilaterally AUSCULTATION: clear to auscultation bilaterally Cardio: COMMON NORMALS: no JVD, regular rate, regular rhythm, No clicks present (Cardio), No murmurs present (Cardio) and No rub (Cardio) RATE: regular rate RHYTHM: regular rhythm GI: COMMON NORMALS: Normal to inspection, nondistended, normoactive bowel sounds present, Soft to palpation and non-tender AUSCULTATION: Yes normoactive bowel sounds PALPATION: Yes Soft to palpation RECTAL EXAM: deferred Extremity: COMMON NORMALS: normal to inspection, full ROM and capillary refill normal Neuro: COMMON NORMALS: patient oriented x3, moves all extremities, no focal motor deficits and no sensory deficits noted SENSORIUM/ORIENTATION: Yes oriented to person, Yes oriented to place and Yes oriented to time Psych: COMMON NORMALS: mental status grossly normal and Normal thought process present THOUGHT PROCESS: Normal thought process present Skin: COMMON NORMALS: no rashes or lesions noted GENERAL SKIN EXAM: no rashes or lesions noted Course Vital Signs: Vital signs: Vital Signs Temperature 97.9 F 11/09/24 21:07 Pulse Rate 83 11/10/24 00:36 Respiratory Rate 18 11/10/24 00:36 Blood Pressure 124/72 11/10/24 00:36 Pulse Oximetry 97 11/10/24 00:36 Oxygen Delivery Me thod Room Air 11/10/24 00:36 MDM - Chest Pain Medical Decision Making Chest pain for the past couple days, the chest pain has bothered her for months and warranting follow-up with cardiology. Recently started methotrexate 3 weeks ago for history of rheumatoid arthritis. On exam, no adventitious cardiopulmonary lung sounds, overall exam normal. EKG reviewed showing normal sinus rhythm with no acute ST segment changes. Her chest x-ray did not show any signs of pneumonitis, and with negative inflammatory markers I have a very low suspicion for any methotrexate induced pneumonitis. D-dimer was checked and negative, warranting no CT pursuance for any PE. Mild nonspecific elevation in her white blood cell count, this likely could represent a viral infection causing her substernal chest pain with cough. Her troponin was undetectable. Rest of her lab work normal. I do not suspect that this is ACS or any other emergent cause for her chest pain, I feel that she needs to stay the plan for cardiology follow-up and would best benefit from echocardiogram and further outpatient testing. I do suspect anxiety and stress as exacerbations of her symptoms, and she is given general return precautions. She agrees with this plan. Lab Data 11/09/24 22:02 11/09/24 22:02 Radiology Impressions Chest X-Ray 11/09/24 21:12 IMPRESSION: No acute findings. Laboratory Results WBC 12.68 10^3/uL (3.29-11.43) H 11/09/24 22:02 RBC 4.20 10^6/uL (3.85-5.65) 11/09/24 22:02 Hgb 12.00 g/dL (11.27-16.99) 11/09/24 22:02 Hct 37.4 % (36-47) 11/09/24 22:02 MCV 89.0 fl (85-98) 11/09/24 22:02 MCH 28.6 pg (27-33) 11/09/24 22:02 MCHC 32.1 g/dL (30-55) 11/09/24 22:02 RDW 13.7 % (12.1-15.1) 11/09/24 22:02 Plt Count 323 10^3/cmm (157-399) 11/09/24 22:02 MPV 9.1 fL (7.4-10.4) 11/09/24 22:02 Neut % (Auto) 80.5 % 11/09/24 22:02 Lymph % (Auto) 13.2 % 11/09/24 22:02 [place] % (Auto) 5.3 % 11/09/24 22:02 Eos % (Auto) 0.2 % 11/09/24 22:02 Baso % (Auto) 0.2 % 11/09/24 22:02 Neut # (Auto) 10.20 10^3/uL (1.8-7.7) H 11/09/24 22:02 Lymph # (Auto) 1.7 10^3/uL (0.8-4.8) 11/09/24 22:02 [place] # (Auto) 0.7 10^3/uL (0.2-0.9) 11/09/24 22:02 Eos # (Auto) 0.0 10^3/uL (0.0-0.8) 11/09/24 22:02 Baso # (Auto) 0.0 10^3/uL (0.0-0.1) 11/09/24 22:02 Nucleated RBC % (auto) 0 % 11/09/24 22: Nucleated RBCs # 0.0 /100WBC 11/09/24 22:02 ESR 4 mm/hr (0-15) 11/09/24 20:38 D-Dimer 0.39 ug/mLFEU (0-0.59) 11/09/24 22:02 Sodium 140 mmol/L (136-145) 11/09/24 22:02 Potassium 3.9 mmol/L (3.5-5.1) 11/09/24 22:02 Chloride 102 mmol/L (98-107) 11/09/24 22:02 Carbon Dioxide 27 mmol/L (22-29) 11/09/24 22:02 Anion Gap 14.9 (5-19) 11/09/24 22:02 BUN 9 mg/dL (6-20) 11/09/24 22:02 Creatinine 0.6 mg/dL (0.5-0.9) 11/09/24 22:02 GFR Calculation 110.7 mL/min (90-130) 11/09/24 22:02 Glucose 108 mg/dL (65-115) 11/09/24 22:02 Calculated Osmolality 289 mOsm/kg (285-295) 11/09/24 22:02 Calcium 9.9 mg/dL (8.5-10.5) 11/09/24 22:02 Total Bilirubin 0.2 mg/dL (0.15-1.2) 11/09/24 22:02 AST 15 U/L (0-32) 11/09/24 22:02 ALT 23 U/L (0-33) 11/09/24 22:02 Alkaline Phosphatase 90 U/L (35-105) 11/09/24 22:02 Troponin T Baseline < 6 ng/L (0-10) 11/09/24 22:02 C-Reactive Protein 3.0 mg/L (0.0-4.9) 11/09/24 22:02 Total Protein 6.7 g/dL (6.6-8.7) 11/09/24 22:02 Albumin 4.1 g/dL (3.5-5.2) 11/09/24 22:02 Globulin 2.6 g/dL (1.3-4.6) 11/09/24 22:02 All radiology interpretation(s) finalized by discharge Discharge Plan Discharge Patient Disposition: Home Clinical Impression: Chest pain, non-cardiac Condition: Stable Prescriptions: No Action cetirizine [Zyrtec] 10 mg tablet 10 mg PO DAILY Qty: 30 0RF fluticasone propionate [Flonase Allergy Relief] 50 mcg/actuation spray,suspension 2 spray intranasal BID Qty: 16 0RF Rx Instructions: administer into each nostril ondansetron 4 mg tablet,disintegrating 4 mg PO Q8H PRN (Reason: nausea and vomiting) Qty: 10 0RF pilocarpine HCl 5 mg tablet 5 mg PO TID Qty: 90 5RF methotrexate sodium 2.5 mg tablet See Rx Instructions PO .Q7days Qty: 30 5RF Rx Instructions: take 6 tabs on same day once a week PO .Q7days; omeprazole 40 mg capsule,delayed release(DR/EC) See Rx Instructions PO DAILY Qty: 30 4RF Rx Instructions: take 1 capsule in AM 30 minutes before breakfast orally daily; folic acid 1 mg tablet 1 mg PO DAILY Qty: 30 5RF prednisone 10 mg tablet See Rx Instructions .Route .COMPLEX Qty: 90 1RF Rx Instructions: take 4 tabs daily x7days, then 3tabs QD x7days, 2tab QD x7days, 1.5 tab QD x7days, 1tab QD x7days, then start 0.5tab daily ibuprofen 600 mg tablet 600 mg PO Q8H PRN (Reason: pain) Qty: 30 0RF sumatriptan succinate 25 mg tablet See Rx Instructions PO .COMPLEX Qty: 9 0RF Rx Instructions: take 1 tab at onset of headache; if no relief may repeat 1 tab after at least 2 hrs; max = 4 tabs/24 hr PO amitriptyline 25 mg tablet 25 mg PO DAILY Qty: 60 1RF acyclovir 400 mg tablet 400 mg PO BID PRN (Reason: for flare) Qty: 30 2RF Excedrin Extra Strength 250-250-65 mg Tablet 1 tab PO Q6H PRN (Reason: Pain) Discharge Orders: Discharge ED (Routine); Ordered 11/10/24 Ordered By: Caleb Garnica Referrals: Akhil Matthew MD [Primary Care Provider, Family Practice] Patient Instructions: Patient Portal & Jorge Instructions Activity Restrictions/Additional Instructions: Chest pain discharge Reason for visit: - Chest pain. An EKG and chest X-ray were normal. Blood tests looking for heart injury and blood clots were normal. Tests for inflammation (CRP and ESR) were also normal. Because methotrexate can rarely affect the lungs, a D-dimer and inflammatory markers were checked and were negative. What today?s results mean: - There is no sign of a heart attack, pneumonia, blood clot in the lungs, or methotrexate-related inflammation based on today?s testing. - Some causes of chest pain take time to diagnose. A referral to cardiology has been placed for follow-up testing and to look for non-urgent causes of chest discomfort. Medications: - Continue taking current medications exactly as prescribed, including methotrexate, unless told otherwise by a clinician. - If taking folic acid with methotrexate, continue it as prescribed; this helps reduce some side effects. - Do not start or stop medicines (including antibiotics like trimethoprim/sulfamethoxazole) without checking first, as some can interact with methotrexate and may require extra blood monitoring. Methotrexate safety reminders: - Most people tolerate methotrexate well. Side effects can include upset stomach, mouth sores, fatigue, and abnormal liver tests; rare but important problems include low blood counts, infections, and lung reactions. - Although methotrexate-related lung inflammation (pneumonitis) is uncommon, it is important to watch for warning signs. Typical symptoms are new or worsening shortness of breath, dry cough, fever, and feeling unwell. - Routine lab monitoring (blood counts, kidney, and liver tests) is usually done every few weeks to months while on methotrexate. Keep all scheduled lab appointments. When to seek care: - Call 911 or go to the emergency department now for: - Chest pain that is crushing, severe, or lasts more than 10?15 minutes and does not improve with rest - Trouble breathing or shortness of breath at rest - Fainting, severe dizziness, or new confusion - Coughing up blood - One-sided weakness, trouble speaking, or new severe headache - Call the clinic or return for urgent evaluation for: - Chest pain that is getting worse, happens with less activity, or comes with nausea, sweating, or shortness of breath - Fever (temperature 100.4?F/38?C or higher), chills, or signs of infection (worsening cough, painful urination, red or draining wounds) while on methotrexate - New or worsening shortness of breath, dry cough, or fever that could suggest a rare lung reaction to methotrexate - Mouth sores, severe nausea/vomiting, yellowing of the skin/eyes, dark urine, severe fatigue, unusual bruising or bleeding Activity and self-care: - Rest today and gradually return to normal activity as symptoms allow. - Avoid tobacco and secondhand smoke. Stay well hydrated. - Limit alcohol while on methotrexate to protect the liver, and avoid new [id number] supplements without checking first. Follow-up plan: - Cardiology referral has been placed; expect scheduling instructions soon. - Follow up with the prescribing clinician managing methotrexate to keep regular lab checks (blood counts, kidney, liver) on schedule. - Bring an updated medication list to appointments, including doses and any vitamins. Contact information: - For questions during business hours, call: [clinic number]. - After hours, if symptoms are concerning, use the on-call line or go to the nearest emergency department. Education notes about methotrexate (for reference): - Serious lung reactions from methotrexate are rare, more often occur early after starting the medicine, and usually improve when the drug is stopped and supportive care is given. - Low-dose methotrexate slightly increases the risk of some side effects (stomach upset, mild infections, low blood counts), so prompt reporting of symptoms helps keep treatment safe. Print Language: Pashto Coding Level of Care Code ED Dental Scheduler for Kaelyn Vasquez
--- NOTE | 2024-11-09 23:12 | ECG_ITS ---
[facility]: 2024-11-09 Pat Name: Donna Chao Department: Room: Gender: Female Archeology Professor: : 1985 Requested By: Samy Abrams Order Number: [id number] Silverman MD: Jono Heart M.D. Measurements Intervals [place] Rate: 84 P: 23 SC: 135 QRS: 28 QRSD: 90 T: 0 QT: 327 QTc: 388 Interpretive Statements SINUS RHYTHM Compared to ECG 11/09/2024 21:10:27 No significant changes Electronically Signed On 11-10-2024 13:59:13 CDT by Jono Heart M.D. [email or web address]
[2024-11-09 23:26] VITALS: BP 127/86; PULSE 88; RESP 16; O2SAT 95
[2024-11-09 23:49] VITALS: BP 118/82; PULSE 83; RESP 16; O2SAT 96
[2024-11-10] VITALS: BP 122/73; PULSE 87; RESP 16; O2SAT 95
[2024-11-10 00:36] VITALS: BP 124/72; PULSE 83; RESP 18; O2SAT 97
[2024-11-10 00:55] VITALS: BP 118/76; PULSE 83; O2SAT 96
--- NOTE | 2024-11-10 07:27 | DCPLANNER ---
messaged heart care for er f/u
== END 2024-11-10 00:56 | disposition home or self-care (01) ==
PROVIDERS: Emergency Medicine; Emergency Provider Physician Assistant; PCP Family Medicine
DX: R07.89 Other chest pain (principal)
CPT/HCPCS: 36415; 71045; 80053; 84484; 85025; 85378; 85651; 86140; 93005; 99285

== ENCOUNTER → 2024-12-26 17:25 | Outpatient (BNVA) | payer OTHER, SELFPAY | PROVIDERS: PCP Family Medicine; Visit Provider Family Medicine | DX: R39.9 Unspecified symptoms and signs involving the genitourinary system (principal) | CPT/HCPCS: 81000 ==

== ENCOUNTER 2025-01-12 07:40 | Outpatient (CLI) | payer OTHER, SELFPAY ==
--- NOTE | 2025-01-12 07:45 | USCV_ITS ---
Donna Chao Age: 39 Gender: F : 1985 Exam Date: 01/12/2025 08:03 Ordering Phys: Homero Molina MD ([email or web address]) Technologist: Neptali Dunn Exam Location: [facility] Indication: chest pain BP: 124 / 76 HR: 74 Rhythm: Other Technical Quality: Adequate MEASUREMENTS (Male / Female) Normal Values 2D ECHO LV Diastolic Diameter PLAX 4.9 cm 4.2 - 5.9 / 3.9 - 5.3 cm IVS Diastolic Thickness 0.9 cm 0.6 - 1.0 / 0.6 - 0.9 cm IVS Systolic Thickness 1.1 cm LVPW Diastolic Thickness 0.7 cm 0.6 - 1.0 / 0.6 - 0.9 cm LVPW Systolic Thickness 1.0 cm LVOT Diameter 2.1 cm LV Ejection Fraction 2D Teich 51.4 % LV Ejection Fraction MOD 4C 53.1 % LV Ejection Fraction MOD 2C 55.4 % LV Ejection Fraction 2C AL 54.6 % LA Diameter 3.0 cm RA Systolic Volume 4C AL 26.4 ml RA Systolic Volume 4C MOD 26.6 ml LA Sys Volume AL 21.8 cm cubed LA Sys Volume Index AL 11.3 cm cubed/m squared Aorta at Sinotubular Diameter 2.0 cm IVC Diameter 1.7 cm M-MODE LA Ao Ratio MM 1.2 AV Cusp Separation MM 1.7 cm DOPPLER AV Peak Velocity 146.0 cm/s LVOT Peak Velocity 78.0 cm/s AV Area Cont Eq vti 1.8 cm squared AV Area Cont Eq pk 1.8 cm squared MV Peak Velocity 73.3 cm/s MV Area PHT 4.4 cm squared Mitral E to A Ratio 1.1 TR Peak Velocity 336.0 cm/s TR Peak Gradient 45.2 mmHg TR Mean Velocity 286.0 cm/s TR Mean Gradient 33.5 mmHg TR Velocity Time Integral 86.7 cm PV Peak Velocity 85.3 cm/s RV Ejection Time 0.3 s FINDINGS Left Ventricle Normal left ventricular size, low normal systolic function, with no regional wall motion abnormality. Left ventricular ejection fraction is 53%. Normal left ventricular diastolic function. Normal wall thickness. Right Ventricle Normal right ventricular size and systolic function. RVSP could not be calculated due to incomplete tricuspid regurgitation velocity profile. Right Atrium Normal right atrial size. Left Atrium Normal left atrial size. IA Septum Normal appearance of the interatrial septum. Mitral Valve Normal mitral valve structure. No mitral valve stenosis. Trace regurgitation. Aortic Valve Normal aortic valve structure. No aortic valve stenosis or regurgitation. Tricuspid Valve Normal tricuspid valve structure. No tricuspid valve stenosis. Trace regurgitation. Pulmonic Valve Normal pulmonic valve structure. No pulmonic valve stenosis. Trace regurgitation. Pericardium No pericardial effusion. Aorta Normal diameter of the aortic root and ascending thoracic aorta. IVC Normal IVC diameter. CONCLUSIONS Normal left ventricular size, low normal systolic function, with no regional wall motion abnormality. Left ventricular ejection fraction is 53%. Normal left ventricular diastolic function. Normal wall thickness. Normal right ventricular size and systolic function. No significant valvular abnormalities. Homero Molina MD, FACC (Electronically Signed) Final Date: 20 January 2025 16:14 S
== END 2025-01-12 07:41 | disposition home or self-care (01) ==
LOC: RAD 07:42
PROVIDERS: PCP Family Medicine; Visit Provider Internal Medicine Cardiovascular Disease
DX: R07.9 Chest pain, unspecified (principal); R93.1 Abnormal findings on diagnostic imaging of heart and coronary circulation
CPT/HCPCS: 93306

== ENCOUNTER → 2025-03-08 16:46 | Outpatient (BNVA) | payer OTHER, SELFPAY | PROVIDERS: PCP Family Medicine; Visit Provider Internal Medicine Rheumatology | DX: M35.00 Sjogren syndrome, unspecified (principal); R76.89 Other specified abnormal immunological findings in serum; Z79.899 Other long term (current) drug therapy | CPT/HCPCS: 36415; 80076; 82565; 85025; 85651; 86140 ==

== ENCOUNTER → 2025-03-20 16:17 | Outpatient (BNVA) | payer OTHER, SELFPAY | PROVIDERS: PCP Family Medicine; Visit Provider Orthopaedic Surgery | DX: M54.2 Cervicalgia (principal); M25.511 Pain in right shoulder | CPT/HCPCS: 72050; 73030 ==

== ENCOUNTER 2025-03-30 09:42 | Outpatient (CLI) | payer OTHER, SELFPAY ==
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
== END 2025-03-30 09:43 | disposition home or self-care (01) ==
LOC: RAD 09:44
PROVIDERS: PCP Family Medicine; Visit Provider Orthopaedic Surgery
DX: M25.519 Pain in unspecified shoulder (principal)
CPT/HCPCS: 73200